=== PATIENT | male | born 1945 | race Caucasian/White ===

== ENCOUNTER 2020-07-17 08:02 | Outpatient (CLI) | payer OTHER, SELFPAY ==
[2020-07-17 08:38] VITALS: BMI 27.4
--- NOTE | 2020-07-17 09:27 | NMCV_ITS ---
NM onesimo perf SPECT r/s* [id number] Greg Joseph Age: 74 Gender: M : 1945 Exam Date: 07/17/2020 09:26 Ordering Phys: Clyde Gardner MD ([email or web address]) Technologist: ROJELIO Hendrickson Exam Location: [facility] Indications: SHORTNESS OF BREATH AND CHEST PAIN STRESS TEST Please [facility] for [facility] IMAGE PROTOCOL Rest/Stress 1 Lexiscan Day Radiopharmaceutical Dose (mCi) Administration Site Administered by Rest: Tc-99m 10.5 IV ROJELIO Hendrickson Sestamibi Stress:Tc-99m 32.3 IV ROJELIO Contreras Sestamibi Rest: 17-Jul-2020 60 Discovery 630 Stress: 17-Jul-2020 30 Discovery 630 0.4mg Lexiscan. Images obtained in supine and prone position. SPECT RESULTS Technical Quality: Excellent Raw Data Analysis: Normal Image Corrections: No attenuation or motion correction applied Summed Stress Score: 0 Summed Rest Score: 3 Summed Difference Score: 0 PERFUSION FINDINGS Small area of slightly decreased tracer uptake in the basal ,mid and apical inferior region with no significant reversibility. FUNCTIONAL RESULTS (calculated via Gated SPECT) Stress Image LV EF (%): 74 Stress EDV (mL):101 TID: 1.19 Stress ESV (mL):26 FUNCTIONAL FINDINGS: Segmental wall motion analysis revealing no gross wall motion abnormalities. LV ejection fraction was around 34%. IMPRESSIONS 1. Myocardial perfusion imaging revealing small area of persistent decreased tracer up take in the mid and apical inferior wall region, suggestive of myocardial scarring versus attrition artifact. 2. Normal LV ejection fraction 74%. 3. LV wall motion analysis revealing no gross wall motion normalities. 4. Normal LV volume. No significant coronary ischemia, based on the above findings Dr Clyde Gardner MD [facility] (Electronically Signed) Final Date: 17 July 2020 18:53 S
--- NOTE | 2020-07-17 09:27 | ECG_ITS ---
[facility] Test Date: 2020-07-17 Pat Name: Greg Joseph Department: Room: Gender: Male Drosser: Lisa Damon : 1945 Requested By: Clyde Gardner Order Number: [id number] Reading MD: Clyde Gardner M.D. Interpretive Statements NAME OF STUDY: LEXISCAN SESTAMIBI STRESS TEST INDICATION: Chest Pain, PROCEDURE: At the baseline, the EKG revealed normal sinus rhythm with some nonspecific ST changes. The baseline blood pressure was 139/85 mm Hg with a heart rate of 75 beats/min. Lexiscan was infused over a period of 20 seconds. A total of 0.4 milligrams of Lexiscan was infused. The stress phase was continued for a total of 5 minutes. Heart rate at the end of the stress phase was 86 with a blood pressure 133/74. The EKG at the peak infusion revealed no significant changes. Sestamibi was injected 20 seconds after the Lexiscan infusion. Blood pressure at the end of the recovery phase was 136/81 with a heart rate of 87 per minute. CONCLUSION: 1. No significant EKG changes with the LexiScan infusion 2. No LexiScan induced chest pain or cardiac arrhythmia 3. Normal blood pressure and heart rate response 4. Sestamibi/sestamibi perfusion scan pending; see separate report. Electronically Signed On 07-18-2020 9:07:51 CDT by Clyde Gardner M.D. [id number]
[2020-07-17 10:05] VITALS: BP 133/93; PULSE 93
[2020-07-17] MEDS: regadenoson 0.4 Mg/5 ml Syringe IVP (10:05)
== END 2020-07-17 08:03 | disposition home or self-care (01) ==
LOC: CDL 08:04
PROVIDERS: PCP Family Medicine; Visit Provider Internal Medicine Cardiovascular Disease
DX: R07.9 Chest pain, unspecified (principal); R06.02 Shortness of breath
CPT/HCPCS: 78452; 93017; A9500; J2785

== ENCOUNTER → 2020-08-09 09:25 | Outpatient (BNVA) | payer MEDICARE, SELFPAY | PROVIDERS: PCP Emergency Medicine Emergency Medical Services; Visit Provider Urology | DX: R31.0 Gross hematuria (principal); N36.8 Other specified disorders of urethra; Z87.891 Personal history of nicotine dependence; Z79.02 Long term (current) use of antithrombotics/antiplatelets | CPT/HCPCS: 81003 ==

== ENCOUNTER 2021-02-27 10:55 | Emergency (ER) | payer OTHER, MEDICARE, SELFPAY ==
--- NOTE | 2021-02-27 11:21 | ECG_ITS ---
[facility] Test Date: 2021-02-27 Pat Name: Greg Joseph Department: Room: Gender: Male Client Finance Analyst: : 1945 Requested By: Duke Trujillo Order Number: [id number] Cristina MD: Corrina Dow M.D. Measurements Intervals [place] Rate: 98 P: 25 NJ: 145 QRS: 18 QRSD: 87 T: -8 QT: 323 QTc: 412 Interpretive Statements SINUS RHYTHM WITH SINUS ARRHYTHMIA NONSPECIFIC T-WAVE ABNORMALITY Compared to ECG 07/09/2017 14:59:49 T-wave abnormality now present Electronically Signed On 02-28-2021 16:13:42 GRADUATE TEACHER EDUCATION by Corrina Dow M.D. [id number]
--- NOTE | 2021-02-27 11:23 | XR_ITS ---
WS: [id number] Exam: XR chest 1V portable [id number] Date/Time of Exam: 02/27/2021 11:23 AM Reason For Exam: chest pain/dyspnea Comparison 07/09/2017. Findings: The lungs are clear and fully expanded. Costophrenic angles are sharp. No infiltrates. Bronchovascula r relief appears normal. Cardiac silhouette is unremarkable. Bony elements are intact. XR/XR chest 1V portable [id number] IMPRESSION: Unremarkable chest radiograph.
[2021-02-27 11:57] VITALS: BP 122/73; PULSE 101; RESP 16; TEMP 36.9; O2SAT 98
[2021-02-27 11:57] LABS: Basophils % 0.4 %; Eosinophils % 0.1 %; Hemoglobin 15.4 g/dL (11.7-16.6); Lymphocytes # 0.6 10^3/uL (0.8-4.8); Lymphocytes % 5.8 %; Mean Corpuscular Hemoglobin 31.5 pg (28.0-34.0); Mean Platelet Volume 9.5 fL (7.4-10.4); Monocytes % 9.1 %; Neutrophils # 9.07 10^3/uL (1.8-7.7); Neutrophils % 84.3 %; Nucleated Red Blood Cells % 0 %; Platelet Count 225 10^3/cmm (130-400); Red Blood Count 4.89 10^6/uL (4.1-5.3); Red Cell Distribution Width 12.9 % (12.1-15.1); White Blood Count 10.8 10^3/uL (4.0-10.0)
--- NOTE | 2021-02-27 12:08 | PC.PHAR ---
pt states he takes care of his medications-pt states he stop taking aspirin a few months ago-notes are made in the pharmacy comments
[2021-02-27 12:30] LABS: Alanine Aminotransferase 21 U/L (0-41); Albumin Level 4.9 g/dL (3.5-5.2); Alkaline Phosphatase 62 IU/L (40-130); Aspartate Amino Transferase 26 U/L (0-40); Blood Urea Nitrogen 26 mg/dL (8-23); Calcium 8.5 mg/dL (8.5-10.5); Carbon Dioxide 22 mmol/L (22-29); Chloride 97 mmol/L (98-107); Creatine Phosphokinase 211 U/L (39-308); Globulin 2.5 g/dL (1.3-4.6); Glucose 101 mg/dL (65-115); NT Pro B Type Natriuretic Pept 20 pg/mL (0-125); Osmolality Calculated 289 mOsm/kg (285-295); Sodium 137 mmol/L (136-145); Total Bilirubin 0.5 mg/dL (0.15-1.2); Total Protein 7.4 g/dL (6.6-8.7); Troponin(5th) Baseline 8 ng/L (0-15)
[2021-02-27 12:37] LABS: Anion Gap 21.9 (5-19); Potassium 3.9 mmol/L (3.5-5.1)
--- NOTE | 2021-02-27 12:44 | ED_ITS ---
HPI - Chest Pain General: Chief Complaint: Chest Pain Stated Complaint: sent by PCP: labs, x-rays Time Seen by Provider: 02/27/21 11:23 History of Present Illness: HPI narrative: 75-year-old male presents emergency room complaining of chest pain. He was seen in Dr. Gardner's office morning complaining of generalized weakness intermittent chest pain for the last several days he denies any cough no fever sweats or chills. He has had a history of coronary disease previously had intervention with stenting he states it feels similar to when he had his heart attack previously. Is not had any diarrhea no anosmia. This time presentation his chest pain has resolved. MD complaint: chest heaviness and chest discomfort Pertinent past history: coronary artery disease Onset (ago): day(s) (4) Timing of current episode: episodic Onset: during rest Pain location: left chest Pain radiation: none Severity: mild Quality: aching and heaviness Relieving factors: nothing Exacerbating factors: nothing Associated symptoms: Deny abdominal pain, diaphoresis, dyspnea, fever(s), leg edema, nausea, palpitations, sense of impending doom, syncope or vomiting Treatment prior to arrival: none Review of Systems Const: Denies: fever(s) or diaphoresis ENMT: Denies: throat pain, ear or mastoid pain, nasal discharge or nasal congestion Card: Denies: palpitations or syncope Resp: Denies: dyspnea GI: Denies: abdominal pain, nausea or vomiting : Denies: flank pain, dysuria, urinary frequency or urinary urgency Skin/Breast: Denies: rash or pruritus PFSH ED PFSH: Medical History Atherosclerotic heart disease of [place] coronary artery with other forms of angina pectoris Atypical chest pain Benign essential hypertension with target blood pressure below 140/90 History of cellulitis History of elevated PSA History of hypertension History of marijuana use History of post traumatic stress disorder History of tachycardia History of tobacco use Hx of atherosclerotic cardiovascular disease Hx of chronic arthritis Hx of gastroesophageal reflux (GERD) Hx of myocardial infarction Hx of spinal stenosis Hypercholesteremia Urethral bleeding Surgical History History of PTCA Hx of appendectomy Hx of bone marrow transplant Hx of coronary angioplasty Hx of hand surgery Hx of tonsillectomy Family History Brother Cancer Mother Dementia Denies family history of Diabetes CAD (coronary artery disease) Clotting disorder Chronic kidney disease (CKD) Suicide Anesthesia complication Bleeding disorder Lung disease Stroke Social History Smoking and tobacco status: former smoker Alcohol intake: former Marital status: / History of recent travel: No Physical Exam Const: COMMON NORMALS: no acute distress GENERAL APPEARANCE: cooperative and comfortable ORIENTATION/CONSCIOUSNESS: Yes awake, Yes oriented to person, Yes oriented to place and Yes oriented to time HENMT: COMMON NORMALS: normocephalic, atraumatic and hearing grossly normal bilaterally HEAD & SCALP: normocephalic and atraumatic Neck/C-Spine: COMMON NORMALS: no JVD Resp: COMMON NORMALS: normal respiratory effort, No retractions, No use of accessory muscles and clear to auscultation bilaterally AUSCULTATION: clear to auscultation bilaterally Cardio: COMMON NORMALS: no JVD, regular rate, regular rhythm and No murmurs present (Cardio) RATE: regular rate RHYTHM: regular rhythm GI: COMMON NORMALS: Soft to palpation and No hepatosplenomegaly present AUSCULTATION: Yes normoactive bowel sounds PALPATION: Yes Soft to palpation, No Tenderness to palpation present (GI), No Guarding due to palpation present (GI) and Yes No hepatosplenomegaly present Extremity: COMMON NORMALS: normal to inspection, capillary refill normal, no clubbing, cyanosis or edema, no calf tenderness and no pedal edema Neuro: SENSORIUM/ORIENTATION: Yes oriented to person, Yes oriented to place and Yes oriented to time Skin: COMMON NORMALS: no rashes or lesions noted GENERAL SKIN EXAM: no rashes or lesions noted Course Vital Signs: Vital signs: Vital Signs Temperature 98.5 F 02/27/21 11:57 Pulse Rate 95 02/27/21 15:22 Respiratory Rate 16 02/27/21 15:22 Blood Pressure 103/68 02/27/21 15:22 Pulse Oximetry 98 02/27/21 15:22 MDM - Chest Pain MDM Narrative: Medical decision making narrative: Reviewed labs and imaging with patient. Patient has chest discomfort that is associated with other myalgias and is only worsened by deep inspiration and cough. Labs imaging and EKG are unremarkable reviewed with the patient he prefer to go home discharge home if he has any worsening problems return immediately to the emergency room. Supportive cares Lab Data: Labs: Lab Results 02/27/21 02/27/21 02/27/21 11:50 11:50 11:50 WBC 10.8 10^3/uL H 10 ^3/uL (4.0-10.0) RBC 4.89 10^6/uL 10^6 /uL (4.1-5.3) Hgb 15.4 g/dL g/dL (11.7-16.6) Hct 44.0 % % (42.0-52.0) MCV 90.0 fl fl (80-94) MCH 31.5 pg pg (28.0-34.0) MCHC 35.0 g/dL g/dL (30.0-36.0) RDW 12.9 % % (12.1-15.1) Plt Count 225 10^3/cmm 10^3 /cmm (130-400) MPV 9.5 fL fL (7.4-10.4) Neut % (Auto) 84.3 % % Lymph % (Auto) 5.8 % % [place] % (Auto) 9.1 % % Eos % (Auto) 0.1 % % Baso % (Auto) 0.4 % % Neut # (Auto) 9.07 10^3/uL H 10 ^3/uL (1.8-7.7) Lymph # (Auto) 0.6 10^3/uL L 10^ 3/uL (0.8-4.8) [place] # (Auto) 1.0 10^3/uL H 10^ 3/uL (0.2-0.9) Eos # (Auto) 0.0 10^3/uL 10^3/ uL (0.0-0.8) Baso # (Auto) 0.0 10^3/uL 10^3/ uL (0.0-0.1) Nucleated RBC % (a uto) 0 % % Nucleated RBCs # 0.0 /100WBC /100W BC Sodium 137 mmol/L mmol/L (136-145) Potassium 3.9 mmol/L mmol/L (3.5-5.1) Chloride 97 mmol/L L mmol/ L (98-107) Carbon Dioxide 22 mmol/L mmol/L (22-29) Anion Gap 21.9 H (5-19) BUN 26 mg/dL H mg/dL (8-23) Creatinine 1.2 mg/dL mg/dL (0.7-1.2) GFR Calculation Not Reportable Glucose 101 mg/dL mg/dL (65-115) Calculated Osmolal ity 289 mOsm/kg mOsm/ kg (285-295) Calcium 8.5 mg/dL mg/dL (8.5-10.5) Total Bilirubin 0.5 mg/dL mg/dL (0.15-1.2) AST 26 U/L U/L (0-40) ALT 21 U/L U/L (0-41) Alkaline Phosphata se 62 IU/L IU/L (40-130) Creatine Kinase 211 U/L U/L (39-308) CK-MB (CK-2) 3.7 ng/mL ng/mL (0-10.4) CK-MB (CK-2) Rel I ndex % % (0.0-5.3) Troponin T Baselin e 8 ng/L ng/L (0-15) Troponin T 120 Min red devil Delta Troponin T NT-Pro-B Natriuret Pep 20 pg/mL pg/mL (0-125) Total Protein 7.4 g/dL g/dL (6.6-8.7) Albumin 4.9 g/dL g/dL (3.5-5.2) Globulin 2.5 g/dL g/dL (1.3-4.6) 02/27/21 13:48 WBC RBC Hgb Hct MCV MCH MCHC RDW Plt Count MPV Neut % (Auto) Lymph % (Auto) [place] % (Auto) Eos % (Auto) Baso % (Auto) Neut # (Auto) Lymph # (Auto) [place] # (Auto) Eos # (Auto) Baso # (Auto) Nucleated RBC % (a uto) Nucleated RBCs # Sodium Potassium Chloride Carbon Dioxide Anion Gap BUN Creatinine GFR Calculation Glucose Calculated Osmolal ity Calcium Total Bilirubin AST ALT Alkaline Phosphata se Creatine Kinase CK-MB (CK-2) CK-MB (CK-2) Rel I ndex Troponin T Baselin e Troponin T 120 Min red devil 8.86 ng/L ng/L (0-15) Delta Troponin T 0.86 ABS# ABS# (0-10) NT-Pro-B Natriuret Pep Total Protein Albumin Globulin Discharge Plan Discharge Patient Disposition: Home Clinical Impression: Viral URI, Atypical chest pain, Atherosclerotic heart disease of [place] coronary artery with other forms of angina pectoris Condition: Stable Prescriptions: No Action cholecalciferol (vitamin D3) 25 mcg (1,000 unit) capsule 25 mcg PO BEDTIME RF: 0 furosemide [Lasix] 40 mg tablet 40 mg PO QAM RF: 0 pantoprazole 40 mg tablet,delayed release (DR/EC) 40 mg PO QAM RF: 0 potassium chloride 20 mEq tablet extended release 20 meq PO QAM RF: 0 prednisone 10 mg Tablet See Rx Instructions .ROUTE .COMPLEX RF: 0 metoprolol tartrate 50 mg Tablet 25 mg PO QAM RF: 0 lidocaine 5 % Ointment 1 applic topical QID PRN (Reason: Pain) RF: 0 biotin 5,000 mcg Tablet,Disintegrating 5,000 mcg PO BEDTIME RF: 0 Plavix 75 mg tablet 75 mg PO QAM RF: 0 lisinopril 5 mg tablet 5 mg PO BEDTIME RF: 0 Discharge Orders: Discharge ED (Routine); Ordered 02/27/21 Ordered By: Duke Carrillo Referrals: Heron Haider DO [Primary Care Provider] - Discharge Diet: Usual diet Discharge Activity: Resume usual activity Patient Instructions: Opioid Safety Coding Level of Care Code ED Lighting Specialist for Liliyag Fwd Exam Comprehensive
[2021-02-27] MEDS: aspirin 81 mg Chew Tablet 324 MG PO (12:45)
[2021-02-27 13:10] LABS: CKMB 3.7 ng/mL (0-10.4)
--- NOTE | 2021-02-27 13:23 | ECG_ITS ---
[facility] Test Date: 2021-02-27 Pat Name: Greg Joseph Department: Room: Gender: Male Crutcher Helper: : 1945 Requested By: Duke Trujillo Order Number: [id number] Cristina MD: Corrina Dow M.D. Measurements Intervals [place] Rate: 101 P: 26 OK: 155 QRS: 24 QRSD: 86 T: 52 QT: 327 QTc: 425 Interpretive Statements SINUS TACHYCARDIA NONSPECIFIC T-WAVE ABNORMALITY Compared to ECG 07/09/2017 14:59:49 T-wave abnormality now present Sinus rhythm no longer present Electronically Signed On 02-28-2021 16:17:36 SENIOR SUPPORT ENGINEER by Corrina Dow M.D. [email or web address]/store/[id number]
[2021-02-27] MEDS: acetaminophen 500 mg Tablet 1000 MG PO (14:31)
[2021-02-27 14:41] LABS: Troponin 5 2HR 8.86 ng/L (0-15); Troponin 5 2HR Delta 0.86 ABS# (0-10)
[2021-02-27 15:22] VITALS: BP 103/68; PULSE 95; RESP 16; O2SAT 98
== END 2021-02-27 15:34 | disposition home or self-care (01) ==
PROVIDERS: Emergency Provider Family Medicine; PCP Emergency Medicine Emergency Medical Services
DX: R07.89 Other chest pain (principal); J06.9 Acute upper respiratory infection, unspecified; I25.118 Atherosclerotic heart disease of native coronary artery with other forms of angina pectoris; Z79.02 Long term (current) use of antithrombotics/antiplatelets; I10 Essential (primary) hypertension; I25.2 Old myocardial infarction; Z94.81 Bone marrow transplant status; Z98.61 Coronary angioplasty status; Z87.891 Personal history of nicotine dependence
CPT/HCPCS: 36415; 71045; 80053; 82550; 82553; 83880; 84484; 85025; 93005; 99283

== ENCOUNTER → 2022-02-17 09:59 | Outpatient (BNVA) | payer OTHER, SELFPAY | PROVIDERS: PCP Emergency Medicine Emergency Medical Services; Visit Provider Internal Medicine Cardiovascular Disease | DX: I25.118 Atherosclerotic heart disease of native coronary artery with other forms of angina pectoris (principal); E78.00 Pure hypercholesterolemia, unspecified; I10 Essential (primary) hypertension; Z87.891 Personal history of nicotine dependence; I25.2 Old myocardial infarction | CPT/HCPCS: 99214 ==

== ENCOUNTER → 2023-03-03 11:15 | Outpatient (BNVA) | payer OTHER, SELFPAY | PROVIDERS: PCP Emergency Medicine Emergency Medical Services; Visit Provider Specialist | DX: M75.82 Other shoulder lesions, left shoulder | CPT/HCPCS: 73030; 99204 ==

== ENCOUNTER 2023-03-22 13:19 | Outpatient (CLI) | payer OTHER, SELFPAY ==
--- NOTE | 2023-03-22 13:45 | MR_ITS ---
WS: [id number] MRI LEFT SHOULDER HISTORY: shoulder injury COMPARISON: 03/03/2023 TECHNIQUE: Multiplanar sequences of the shoulder joint are submitted. Moderate AC joint arthritis. AC joint is narrowed. Small osteophytes encroach upon the supraspinatus muscle and tendon. 4 mm osteophyte along the distal undersurface of the acromion with impingement. Sm all amount of fluid in the subacromial and subdeltoid bursa. No os acromion. Normal position of the b iceps tendon. Suspect there is a very short focal split tear in the biceps tendon near the bicipital groove. Moderate glenohumeral joint space narrowing. Osteophytic ridging around the humeral head. There is a small joint effusion. Humeral head osteophyte displacing the subscapularis tendon. No rotator cuff mu scle atrophy or edema. No rotator cuff tear is identified. Degenerative changes in the glenoid. Intra substance degeneration. Increased signal in the anterior superior labrum. IMPRESSION: 1. Moderate AC joint arthritis with encroachment upon the supraspinatus muscle and tendon. 2. Moderate subacromial impingement. 3. No rotator cuff tear identified. 4. Mild tendinopathy in the distal supraspinatus. 5. Very tiny focal split tear biceps tendon at the bicipital groove. 6. Osteophytic ridging around the humeral head with narrowing of the glenohumeral joint. 7. Anterior superior labral tears.
== END 2023-03-22 13:20 | disposition home or self-care (01) ==
LOC: RAD 13:20
PROVIDERS: PCP Emergency Medicine Emergency Medical Services; Visit Provider Specialist
DX: M19.012 Primary osteoarthritis, left shoulder (principal); M75.42 Impingement syndrome of left shoulder; M25.712 Osteophyte, left shoulder; S43.432A Superior glenoid labrum lesion of left shoulder, initial encounter; X58.XXXA Exposure to other specified factors, initial encounter; M75.82 Other shoulder lesions, left shoulder
CPT/HCPCS: 73221

== ENCOUNTER 2023-09-16 21:26 | Emergency (ER) | payer OTHER, MEDICARE, SELFPAY ==
[2023-09-16 21:31] VITALS: BP 133/76; PULSE 85; RESP 16; TEMP 36.6; O2SAT 99; BMI 27.4
--- NOTE | 2023-09-16 22:37 | ED_ITS ---
HPI - Wound/Laceration 2 General: Chief Complaint: Wound/Laceration Stated Complaint: Cut left leg with chainsaw Time Seen by Provider: 09/16/23 22:21 Source: patient and family Mode of arrival: wheelchair Limitations: no limitations History of Present Illness: Patient is a 78-year-old male who presents to the ED today for evaluation of a laceration to his left lower extremity that he sustained just prior to arrival after accidentally cutting it with a chainsaw. Last tetanus is unknown. Onset (ago): hour(s) Extremity Location: Left: lower leg Place: home Patient tetanus UTD: No Context: accidental Associated symptoms: Reports no associated symptoms Treatments prior to arrival: bandage Review of Systems 2 Musc: Reports: extremity pain; Denies: extremity swelling, joint pain or joint swelling Skin/Breast: Reports: other (laceration L lower leg) Neuro: Denies: numbness in extremities, weakness in extremities or sensory changes PFSH ED 2 PFSH: Medical History History of tobacco use Urethral bleeding Benign essential hypertension with target blood pressure below 140/90 Atherosclerotic heart disease of [place] coronary artery with other forms of angina pectoris Atypical chest pain Hypercholesteremia Hx of chronic arthritis History of elevated PSA Hx of atherosclerotic cardiovascular disease History of marijuana use History of hypertension Hx of gastroesophageal reflux (GERD) Hx of myocardial infarction History of cellulitis Hx of spinal stenosis History of post traumatic stress disorder History of tachycardia Surgical History History of PTCA Hx of appendectomy Hx of tonsillectomy Hx of coronary angioplasty Hx of bone marrow transplant Hx of hand surgery Family History Brother Cancer Mother Dementia Denies family history of Diabetes CAD (coronary artery disease) Clotting disorder Chronic kidney disease (CKD) Suicide Anesthesia complication Bleeding disorder Lung disease Stroke Social History Smoking and tobacco/nicotine status: former use of tobacco/nicotine Alcohol intake: former Substance/Drug Use: current Substance/Drug use frequency: few times a week Marital status: / Physical Exam 2 Const: COMMON NORMALS: no acute distress, patient oriented x3, no limitations, healthy appearing, alert and well nourished Extremity: COMMON NORMALS: full ROM, capillary refill normal, no joint enlargement, no clubbing, cyanosis or edema, no calf tenderness and no pedal edema GENERAL: Yes normal exam except as noted LEFT LOWER EXTREMITY: Yes lower leg Left lower leg: Yes inspection (muscle laceration) and Yes neurovascular exam (normal) EXTREMITY IMAGE (FRONT): 1. large 7cm laceration present to L lower extremity just lateral to tibia; there appears to be laceration through muscle fascia and into muscle belly; no obvious tendon involvement; patient seems to have normal flexion/extension of ankle joint as well as digits; NV intact Neuro: COMMON NORMALS: patient oriented x3, moves all extremities, no focal motor deficits and no sensory deficits noted SENSORIUM/ORIENTATION: Yes alert Procedures Laceration Laceration 1: Site: lower extremity Side (If applicable): left Size (cm): 7.0 Description: irregular Depth: involves muscle layer Local Anesthetic: lidocaine 2% Amount of anesthesia used (mL): 6.0 Pre-repair: wound explored Skin layer closed with: nylon Size (cm): 4-0 Number of sutures: 9 Technique: simple, interrupted Muscle layer closed with: vicryl Size: 4-0 Number of sutures: 6 Technique: simple, interrupted Course 2 Vital Signs: Vital signs: Vital Signs Temperature 98 F 09/16/23 21:31 Pulse Rate 85 09/16/23 21:31 Respiratory Rate 16 09/16/23 21:31 Blood Pressure 133/76 09/16/23 21:31 Pulse Oximetry 99 09/16/23 21:31 MDM - Wound/Laceration Medical Decision Making Patient here with a chainsaw laceration to his left lower extremity. There is muscle involvement although it does not appear to be completely severed-suspect this a portion of his tibialis anterior. I do not see any obvious tendon lacerations. I do not visualize any bony involvement on patient's XR. He was given IM Ancef. He was offered a tetanus but he declines. Wound was copiously irrigated and repaired as documented. Patient will be strict nonweightbearing to avoid wound dehiscence. He will follow-up with orthopedics. He will be placed on pain medications and antibiotics. Return to ED precautions given. Differential Diagnosis Likely laceration Medical Records I reviewed the patient's medical records. XR interpretation done by ED provider, pending radiology final review Discharge Plan Discharge Patient Disposition: Home Clinical Impression: Laceration of muscle(s) and tendon(s) of anterior muscle group at lower leg level, left leg, initial encounter Condition: Stable Prescriptions: New hydrocodone-acetaminophen 5-325 mg tablet 1 tab PO Q6H PRN (Reason: pain) Qty: 14 0RF cephalexin 500 mg capsule 500 mg PO Q6H 7 Days Qty: 28 0RF No Action cholecalciferol (vitamin D3) 25 mcg (1,000 unit) capsule 25 mcg PO BEDTIME furosemide [Lasix] 40 mg tablet 40 mg PO QAM pantoprazole 40 mg tablet,delayed release (DR/EC) 40 mg PO QAM potassium chloride 20 mEq tablet extended release 20 meq PO QAM meloxicam 15 mg tablet 15 mg PO DAILY Qty: 30 0RF Rx Instructions: Take one tablet once daily prednisone 10 mg Tablet See Rx Instructions .ROUTE .COMPLEX Rx Instructions: as directed as needed metoprolol tartrate 50 mg Tablet 25 mg PO QAM lidocaine 5 % Ointment 1 applic topical QID PRN (Reason: Pain) biotin 5,000 mcg Tablet,Disintegrating 5,000 mcg PO BEDTIME Plavix 75 mg tablet 75 mg PO QAM lisinopril 5 mg tablet 5 mg PO BEDTIME Discharge Orders: Discharge ED (Routine); Ordered 09/17/23 Ordered By: Geena Chua Referrals: Heron Haider DO [Primary Care Provider] - Patient Instructions: Care For Your Stitches (ED), Laceration (DC), Opioid Safety, Pain Management Activity Restrictions/Additional Instructions: As we discussed I would like you to use your crutches over the next week to avoid weightbearing on your extremity as you have lacerated a muscle to your anterior lower leg. This will hopefully prevent any wound dehiscence to your deep sutures. As we discussed I would like you to ice and elevate the extremity is much as possible. Monitor for signs of infection such as redness, swelling, purulent or odorous drainage, warmth, fevers, streaking up your leg, or any other concerns you may have. Please seek medical reevaluation if these occur. As we discussed case management should reach out to you shortly to help set you up with your follow-up orthopedic appointment. You have antibiotics and pain medications called into [facility] pharmacy in [place]. Please pick them up tomorrow when they open. Coding Level of Care Code ED Signals Intelligence Analyst for Shayan Turner
--- NOTE | 2023-09-16 23:02 | XRR_ITS ---
PROCEDURE INFORMATION: Exam: XR Left Tibia and Fibula Exam date and time: 09/16/2023 11:13 PM Age: 78 years old Clinical indication: Injury or trauma; Other: Chainsaw accident; Laceration; Lower leg; Left; Foreign body involvement not specified; Additional info: Laceration/trauma, chainsaw cut open lt lower leg TECHNIQUE: Imaging protocol: Radiologic exam of the left tibia and fibula. Views: 2 views. COMPARISON: No relevant prior studies available. FINDINGS: Bones/joints: Normal. Soft tissues: Normal. Other findings: Prominent laceration over the anterolateral calf. XR/XR tibia fibula LT 2V [id number] IMPRESSION: Prominent laceration over the anterolateral calf.
[2023-09-16] MEDS: morphine 4 mg/mL SDV 1 mL IM (23:52)
[2023-09-17] MEDS: HYDROcodone-acetaminophen 5-325 mg Tablet 2 TAB PO (00:49)
[2023-09-17] MEDS: ceFAZolin 1,000 MG in water for injection-sterile 2.5 ML 2.5 MG IM (00:49)
[2023-09-17 01:02] VITALS: BP 128/78; PULSE 81; RESP 16; TEMP 36.6; O2SAT 100
--- NOTE | 2023-09-17 04:56 | DCPLANNER ---
Message sent to Ortho for a follow up : Anterior lower leg muscle laceration.
== END 2023-09-17 01:05 | disposition home or self-care (01) ==
PROVIDERS: Emergency Provider Physician Assistant; PCP Emergency Medicine Emergency Medical Services
DX: S86.222A Laceration of muscle(s) and tendon(s) of anterior muscle group at lower leg level, left leg, initial encounter (principal); W29.3XXA Contact with powered garden and outdoor hand tools and machinery, initial encounter; Z79.02 Long term (current) use of antithrombotics/antiplatelets; Z87.891 Personal history of nicotine dependence; I10 Essential (primary) hypertension; I25.10 Atherosclerotic heart disease of native coronary artery without angina pectoris; I25.2 Old myocardial infarction; Z98.61 Coronary angioplasty status; Z94.81 Bone marrow transplant status
CPT/HCPCS: 12032; 73590; 96372; 99284; E0114; J0690; J2270

== ENCOUNTER → 2023-09-30 13:16 | Outpatient (BNVA) | payer OTHER, SELFPAY | PROVIDERS: PCP Emergency Medicine Emergency Medical Services; Referring Provider Physician Assistant; Visit Provider Orthopaedic Surgery | DX: S86.222A Laceration of muscle(s) and tendon(s) of anterior muscle group at lower leg level, left leg, initial encounter (principal); W29.3XXA Contact with powered garden and outdoor hand tools and machinery, initial encounter; Y92.009 Unspecified place in unspecified non-institutional (private) residence as the place of occurrence of the external cause | CPT/HCPCS: 99203 ==

== ENCOUNTER 2024-03-02 09:28 | Outpatient (CLI) | payer OTHER, SELFPAY ==
--- NOTE | 2024-03-02 09:32 | MR_ITS ---
WS: [id number] MRI BRAIN WITH HIGH-RESOLUTION IMAGING THROUGH THE INTERNAL AUDITORY CANALS WITHOUT AND WITH CONTRAST HISTORY: SENSORINEURAL HEARING LOSS,BILATERAL/L EAR TINNITUS COMPARISON: None available. TECHNIQUE: Multiplanar, multisequence imaging is performed through the brain. Additional 3 mm imaging performed in multiple planes through the internal auditory canal. Postcontrast imaging with 16 ml's of MultiHance. No acute intracranial hemorrhage, midline shift, edema or mass effect. No acute infarct. There are a few scattered FLAIR and T2 hyperintensities in the subcortical white ma tter. Mild volume loss. Additional focal areas of ischemia noted in the [place] bilaterally. No large te rritory infarct. No hemorrhage. Normal hippocampal formations. Ventricles and extra-axial spaces are normal. No inferior displacement of cerebellar tonsils. Clivus and pituitary gland are normal. Internal and external auditory canals: Unremarkable. Cranial nerves VII and VIII complexes: Unremarkable. No enhancement or mass. Cerebellopontine angles: Normal. Paranasal sinuses: Marked mucoperiosteal thickening in the LEFT sphenoid sinus. Small mucous retentio n cyst in the floor the LEFT maxillary sinus. No air-fluid levels. Mastoid air cells: Normal. Calvarium and scalp: Normal. Visualized [facility] and dural venous sinuses demonstrate no abnormality. MR/MR iac's wo/w con* [id number] IMPRESSION: 1. Normal internal auditory canals and cerebellopontine angles. No mass is wilian ntified. 2. Mild cerebral volume loss and small vessel disease. Mild ischemic disease i n the [place]. No acute infarct. 3. No enhancing masses. 4. Normal hippocampal formations.
[2024-03-02] MEDS: gadobenate dimeglumine 20 mL vial IV (09:51)
== END 2024-03-02 09:29 | disposition home or self-care (01) ==
LOC: RAD 09:28
PROVIDERS: PCP Emergency Medicine Emergency Medical Services; Visit Provider Otolaryngology
DX: H90.3 Sensorineural hearing loss, bilateral (principal); H93.12 Tinnitus, left ear
CPT/HCPCS: 70553

== ENCOUNTER 2024-03-16 14:20 | Outpatient (CLI) | payer OTHER, SELFPAY ==
--- NOTE | 2024-03-16 14:25 | US_ITS ---
WS: [id number] RENAL ULTRASOUND HISTORY: HEMATURIA COMPARISON: None available. TECHNIQUE: 2-D and color Doppler imaging of the kidney submitted. Right kidney: 10.0 cm x 6.0 cm x 6.0 cm. Cortex: 1.2 cm Normal echogenicity with no hydronephrosis or mass. Left kidney: 9.4 cm x 4.6 cm x 4.7 cm. Cortex: 1.2 cm Normal echogenicity with no hydronephrosis or mass. Aorta: Normal. Urinary Bladder: Normal distention. Prostate gland is enlarged and heterogeneous encroaching into the bladder. US/US renal BI* [id number] IMPRESSION: Normal renal ultrasound.
== END 2024-03-16 14:21 | disposition home or self-care (01) ==
PROVIDERS: Visit Provider Family Medicine
DX: R31.9 Hematuria, unspecified (principal)
CPT/HCPCS: 76770

== ENCOUNTER 2024-07-23 11:40 | Inpatient (IN) | payer OTHER, SELFPAY ==
[2024-07-23] VITALS (7 sets, daily range): BP systolic 102–133; BP diastolic 64–77; PULSE 68–83; RESP 14–18; TEMP 36.7–36.8; O2SAT 66–98; BMI 27.6
--- NOTE | 2024-07-23 11:43 | ECG_ITS ---
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 Measurements Intervals [place] Rate: 69 P: 72 PA: 160 QRS: 71 QRSD: 90 T: 55 QT: 383 QTc: 412 Interpretive Statements SINUS RHYTHM Compared to ECG 02/27/2021 14:22:46 Sinus tachycardia no longer present T-wave abnormality no longer present Electronically Signed On 07-23-2024 21:13:17 CDT by Clyde Gardner M.D. [email or web address]
--- NOTE | 2024-07-23 11:48 | XRR_ITS ---
PROCEDURE INFORMATION: Exam: XR Chest Exam date and time: 07/23/2024 11:59 AM Age: 78 years old Clinical indication: Chest pressure; Chest pain TECHNIQUE: Imaging protocol: Radiologic exam of the chest. Views: 1 view. COMPARISON: CR XR chest 1V portable [id number] 02/27/2021 11:29 AM FINDINGS: Lungs: The pulmonary vessels are within normal limits. The lungs are clear. Pleural spaces: No pneumothorax. Heart/Mediastinum: The cardiomediastinal silhouette is within normal limits. Bones/joints: Osseous structure is unremarkable. XR/XR chest 1V portable [id number] IMPRESSION: No acute pulmonary finding.
[2024-07-23 12:00] LABS: Basophils # 0.1 10^3/uL (0.0-0.1); Basophils % 0.8 %; Eosinophils # 0.3 10^3/uL (0.0-0.8); Eosinophils % 4.1 %; Hematocrit 42.6 % (37-53); Lymphocytes # 1.3 10^3/uL (0.8-4.8); Lymphocytes % 16.5 %; Mean Corpuscular HGB Conc 33.8 g/dL (30-55); Mean Corpuscular Hemoglobin 30.6 pg (27-33); Mean Corpuscular Volume 90.4 fl (82-101); Mean Platelet Volume 9.2 fL (7.4-10.4); Monocytes # 0.6 10^3/uL (0.2-0.9); Monocytes % 7.1 %; Neutrophils # 5.54 10^3/uL (1.8-7.7); Neutrophils % 71.1 %; Nucleated Red Blood Cells % 0 %; Platelet Count 241 10^3/cmm (157-399); Red Blood Count 4.71 10^6/uL (3.85-5.65); Red Cell Distribution Width 12.7 % (12.1-15.1); White Blood Count 7.78 10^3/uL (3.29-11.43)
[2024-07-23 12:17] LABS: Troponin(5th) Baseline 66 ng/L (0-15)
[2024-07-23 12:21] LABS: Alanine Aminotransferase 10 U/L (0-41); Albumin Level 4.2 g/dL (3.5-5.2); Alkaline Phosphatase 67 U/L (40-130); Anion Gap 15.7 (5-19); Aspartate Amino Transferase 14 U/L (0-40); Blood Urea Nitrogen 15 mg/dL (8-23); Calcium 8.6 mg/dL (8.5-10.5); Carbon Dioxide 23 mmol/L (22-29); Chloride 104 mmol/L (98-107); Creatinine Clr Calc Pharmacy 60.6424; Globulin 2.2 g/dL (1.3-4.6); Glucose 137 mg/dL (65-115); Lipase 50 U/L (13-60); Osmolality Calculated 291 mOsm/kg (285-295); Potassium 3.7 mmol/L (3.5-5.1); Sodium 139 mmol/L (136-145); Total Bilirubin 0.5 mg/dL (0.15-1.2); Total Protein 6.4 g/dL (6.6-8.7)
--- NOTE | 2024-07-23 12:33 | ED_ITS ---
HPI - Chest Pain 2 General: Chief Complaint: Chest Pain Stated Complaint: CP Time Seen by Provider: 07/23/24 11:51 History of Present Illness: 78-year-old man with a history of tobacc o use in remission, marijuana use current, coronary artery disease status post stents, hyperlipidemia, hypertension, and PTSD who presents to the emergency room with chest pain. He says that central to the right. Has been exertional. He also is been having shortness of breath with exertion. No lower extremity edema. No calf pain. No abdominal pain. No nausea or vomiting. No increased cough. No wheezing. Related Data Home Medications ?Medication ?Instructions ?Recorded ?Confirmed cholecalciferol (vitamin D3) 25 25 mcg PO BEDTIME 07/3107/23/24 mcg (1,000 unit) capsule furosemide 40 mg tablet (Lasix) 40 mg PO QAM 04/15/20 07/23/24 pantoprazole 40 mg tablet,delayed 40 mg PO QAM 1 07/23/24 release potassium chloride 20 mEq 20 meq PO QAM 04/15/2007/23 tablet,extended release biotin 5,000 mcg disintegrating 5,000 mcg PO BEDTIME 1 04/29/20 07/23/24 tablet clopidogrel 75 mg tablet (Plavix) 75 mg PO QAM 1 07/23/24 lidocaine 5 % topical ointment 1 applic topical QID NM N Pain 02/27/21 07/23/24 lisinopril 5 mg tablet 5 mg PO BEDTIME 02/27/21 metoprolol tartrate 50 mg tablet 25 mg PO QAM 02/27/21 07/23/24 Previous Rx's ?Medication ?Instructions ?Recorded meloxicam 15 mg tablet 15 mg PO DAILY #30 tabs 02/11 06/04 hydrocodone 5 mg-acetaminophen 325 1 tab PO Q6H PRN pa in #14 tabs 09/16/ mg tablet Allergies Allergy/AdvReac Type Severity Reaction Status Date / Time meperidine (From Demerol) Allergy unknown Verified 03/03/23 13:18 Penicillins Allergy unknown Verified 03/03/23 13:18 simvastatin Allergy unknown Verified 03/03/23 13:18 Review of Systems 2 Narrative: Constitutional symptoms: Negative except as documented in HPI. Skin symptoms: Negative except as documented in HPI. Eye symptoms: Negative except as documented in HPI. ENMT symptoms: Negative except as documented in HPI. Respiratory symptoms: Negative except as documented in HPI. Cardiovascular symptoms: Negative except as documented in HPI. Gastrointestinal symptoms: Negative except as documented in HPI. Genitourinary symptoms: Negative except as documented in HPI. Musculoskeletal symptoms: Negative except as documented in HPI. Neurologic symptoms: Negative except as documented in HPI. Psychiatric symptoms: Negative except as documented in HPI. Endocrine symptoms: Negative except as documented in HPI. PFSH ED 2 PFSH: Medical History History of tobacco use Urethral bleeding Benign essential hypertension with target blood pressure below 140/90 Atherosclerotic heart disease of [place] coronary artery with other forms of angina pectoris Atypical chest pain Hypercholesteremia Hx of chronic arthritis History of elevated PSA Hx of atherosclerotic cardiovascular disease History of marijuana use History of hypertension Hx of gastroesophageal reflux (GERD) Hx of myocardial infarction History of cellulitis Hx of spinal stenosis History of post traumatic stress disorder History of tachycardia Surgical History History of PTCA Hx of appendectomy Hx of tonsillectomy Hx of coronary angioplasty Hx of bone marrow transplant Hx of hand surgery Family History Brother Cancer Mother Dementia Denies family history of Diabetes CAD (coronary artery disease) Clotting disorder Chronic kidney disease (CKD) Suicide Anesthesia complication Bleeding disorder Lung disease Stroke Social History Smoking and tobacco/nicotine status: former use of tobacco/nicotine Alcohol intake: former Substance/Drug Use: current Substance/Drug use frequency: few times a week Marital status: / Physical Exam 2 Narrative: EXAM NARRATIVE: General: Alert, no acute distress. Skin: Warm, dry. Head: Normocephalic, atraumatic. Neck: Supple, trachea midline. Eye: Extraocular movements are intact. Ears, nose, mouth and throat: mucosa moist. Cardiovascular: Regular, Normal peripheral perfusion. Respiratory: Lungs are clear to auscultation, respirations are non-labored, breath sounds are equal, Symmetrical chest wall expansion. Gastrointestinal: Soft, Nontender, Non distended Musculoskeletal: Normal ROM, no deformity. Neurological: Alert and oriented, No focal neurological deficit observed. Psychiatric: Cooperative, appropriate mood & affect. Course 2 Vital Signs: Vital signs: Vital Signs Temperature 98.2 F 07/23/24 11:48 Pulse Rate 70 07/23/24 12:00 Respiratory Rate 14 07/23/24 12:00 Blood Pressure 125/76 07/23/24 12:00 Pulse Oximetry 96 07/23/24 12:00 Oxygen Delivery Me thod Room Air 07/23/24 11:48 MDM - Chest Pain Medical Decision Making Differential diagnosis for patient with chest pain includes but is not limited to and based on the above HPI, review of systems and physical exam: Pneumonia. unstable angina. angina. Acute coronary syndrome / AL. Pulmonary embolism. Costochondritis / musculoskeletal. Pleurisy. Pericarditis. Esophageal spasm. Pancreatis. Cholecystitis. Orders placed to evaluate differential diagnosis based on the above differential, HPI and physical exam EKG: Time 1143. Rate 69 normal sinus rhythm, No ST-T changes, no ectopy, normal NM & QRS intervals, This was reviewed and interpreted by myself the ER physician at 1148. Lab Review: Laboratory results were reviewed and interpreted by myself the emergency room physician. No leukocytosis. No anemia. No renal failure. Patient's initial troponin is elevated at 66. Previous was 6. He does not have any renal dysfunction to explain the higher troponin so this is likely secondary to cardiac ischemia. Chest x-ray: No acute process. No infiltrate. No pneumothorax. This was reviewed and interpreted by myself the emergency room physician. I also reviewed the radiology report. HEART Pathway for Early Discharge in Acute Chest Pain from [facility] [email or web address] on 07/23/2024 All calculations should be rechecked by clinician prior to use RESULT SUMMARY: 8 points HEART Pathway Score High risk 12-65% 30-day MACE Cardiology consultation and admission recommended. Further testing indicated. INPUTS: History ?> 2 = Highly suspicious EKG ?> 0 = Normal Age ?> 2 = >=5 Risk factors ?> 2 = >= risk factors or history of atherosclerotic disease Initial troponin ?> 2 = >3x normal limit I reviewed the patient's medical record. history of tobacco use in remission, marijuana use current, coronary artery disease status post stents, hyperlipidemia, hypertension, and PTSD Reexamination: Patient remained stable. No increased work of breathing. No altered mental status. No focal motor deficits. Patient is currently chest pain-free. Consultation: I spoke with Dr. Alvarenga who is on-call for the hospitalist service who agrees to admission. Assessment and plan: Chest pain Unstable angina Coronary artery disease Elevated troponin ?Patient took his Plavix this morning. 324 chewable aspirin in the emergency room here today. -I discussed the patient with the hospitalist on-call who is admitting the patient. - Discussed findings and plan with patient. Answered any questions. - All laboratory values were reviewed and interpreted personally by myself, the ER physician - All imaging was reviewed and interpreted personally by myself, the ER physician. - Evaluation and treatment of this problem were appropriate in the emergency setting Lab Data 07/23/24 11:55 07/23/24 11:55 Radiology Impressions Chest X-Ray 07/23/24 11:48 IMPRESSION: No acute pulmonary finding. Laboratory Results WBC 7.78 10^3/uL (3.29-11.43) 07/23/24 11:55 RBC 4.71 10^6/uL (3.85-5.65) 07/23/24 11:55 Hgb 14.40 g/dL (11.27-16.99) 07/23/24 11:55 Hct 42.6 % (37-53) 07/23/24 11:55 MCV 90.4 fl (82-101) 07/23/24 11:55 MCH 30.6 pg (27-33) 07/23/24 11:55 MCHC 33.8 g/dL (30-55) 07/23/24 11:55 RDW 12.7 % (12.1-15.1) 07/23/24 11:55 Plt Count 241 10^3/cmm (157-399) 07/23/24 11:55 MPV 9.2 fL (7.4-10.4) 07/23/24 11:55 Neut % (Auto) 71.1 % 07/23/24 11:55 Lymph % (Auto) 16.5 % 07/23/24 11:55 [place]corn % (Auto) 7.1 % 07/23/24 11:55 Eos % (Auto) 4.1 % 07/23/24 11:55 Baso % (Auto) 0.8 % 07/23/24 11:55 Neut # (Auto) 5.54 10^3/uL (1.8-7.7) 07/23/24 11:55 Lymph # (Auto) 1.3 10^3/uL (0.8-4.8) 07/23/24 11:55 [place] # (Auto) 0.6 10^3/uL (0.2-0.9) 07/23/24 11:55 Eos # (Auto) 0.3 10^3/uL (0.0-0.8) 07/23/24 11:55 Baso # (Auto) 0.1 10^3/uL (0.0-0.1) 07/23/24 11:55 Nucleated RBC % (auto) 0 % 07/23/24 11:55 Nucleated RBCs # 0.0 /100WBC 07/23/24 11:55 Sodium 139 mmol/L (136-145) 07/23/24 11:55 Potassium 3.7 mmol/L (3.5-5.1) 07/23/24 11:55 Chloride 104 mmol/L (98-107) 07/23/24 11:55 Carbon Dioxide 23 mmol/L (22-29) 07/23/24 11:55 Anion Gap 15.7 (5-19) 07/23/24 11:55 BUN 15 mg/dL (8-23) 07/23/24 11:55 Creatinine 1.0 mg/dL (0.7-1.2) 07/23/24 11:55 GFR Calculation Not Reportable 07/23/24 11:55 Glucose 137 mg/dL (65-115) H 07/23/24 11:55 Calculated Osmolality 291 mOsm/kg (285-295) 07/23/24 11:55 Calcium 8.6 mg/dL (8.5-10.5) 07/23/24 11:55 Total Bilirubin 0.5 mg/dL (0.15-1.2) 07/23/24 11:55 AST 14 U/L (0-40) 07/23/24 11:55 ALT 10 U/L (0-41) 07/23/24 11:55 Alkaline Phosphatase 67 U/L (40-130) 07/23/24 11:55 Troponin T Baseline 66 ng/L (0-15) H 07/23/24 11:55 Total Protein 6.4 g/dL (6.6-8.7) L 07/23/24 11:55 Albumin 4.2 g/dL (3.5-5.2) 07/23/24 11:55 Globulin 2.2 g/dL (1.3-4.6) 07/23/24 11:55 Lipase 50 U/L (13-60) 07/23/24 11:55 All radiology interpretation(s) finalized by discharge Clincial Decision Support The following clinical decision support tools were used to aid in care of the patient HEART Score -> History: Highly Suspicious, EKG: Normal, Age: 65 or more yrs, Risk Factors: >/=3 Risk Factors, Troponin: Baseline Trop >45 ng/L. Resulting HEART Score: 8. Discharge Plan Discharge Patient Disposition: Admitted As Inpatient Clinical Impression: Unstable angina, Coronary artery disease, Elevated troponin Condition: Stable Coding Level of Care Code ED Side Laster Staple for Shayan Turner
--- NOTE | 2024-07-23 12:34 | PM.HP ---
Providers/Chief Complaint Chief Complaint: CP History of Present Illness Greg Joseph is a 78 year old male with past medical history of coronary artery disease status post stents, hyperlipidemia, hypertension, PTSD, former smoker, current marijuana user who presented to the hospital with chest pain that has in the center and to the right of his chest which has been worsening upon exertion. He also reports shortness of breath with exertion. He states pain in the right side of his chest does radiate towards the left and into his neck when he tries to exert himself. Denies any lower extremity edema no pain in his legs. Denies nausea vomiting cough wheezing diarrhea abdominal pain. He states he has seen his doctor at the [place] and he was advised to get a stress test as an outpatient at a later time. He presents today with complaint of chest pain. At this time it is resolved. Not reproducible to palpation. Heart score 8 points. Initial troponin 66. Previously was 6 in the past. Chest x-ray negative for acute pathology. EKG shows normal sinus rhythm. Patient has a history of coronary disease status post PCI in 2016 when he had a myocardial infarction. Dr. Peres with his director compliance at the time. He has not seen him since 2017. He was following up with Dr. Gardner as an outpatient and last saw him in February 2022. He states he has an allergy to simvastatin as it gives him leg cramps. As patient was being seen it was noted on telemetry he had a heart block. I have asked nurse to obtain EKG and print the rhythm strip. Patient states from time to time he will feel his heart skips a beat.. He states is been going on for quite some time now. Medications/Allergies Home Medications ?Medication ?Instructions ?Recorded ?Confirmed ?Last Taken ?Type cholecalciferol (vitamin D3) 25 25 mcg PO BEDTIME 04/15/20 07/23/24 07/23/24 History mcg (1,000 unit) capsule furosemide 40 mg tablet (Lasix) 40 mg PO QAM 04/15/20 07/23/24 07/23/24 History pantoprazole 40 mg tablet,delayed 40 mg PO QAM 04/15/20 07/23/24 07/23/24 History release potassium chloride 20 mEq 20 meq PO QAM 04/15/20 07/23/24 07/23/24 07:00 History tablet,extended release biotin 5,000 mcg disintegrating 5,000 mcg PO BEDTIME 02/27/21 07/23/24 06/10/24 History tablet clopidogrel 75 mg tablet (Plavix) 75 mg PO QAM 02/27/21 07/23/24 07/23/24 History lisinopril 5 mg tablet 5 mg PO BEDTIME 02/27/21 07/23/24 07/23/24 History metoprolol tartrate 50 mg tablet 25 mg PO QAM 02/27/21 07/23/24 07/23/24 History Allergies Allergy/AdvReac Type Severity Reaction Status Date / Time simvastatin Allergy Severe ALGY-Joint Verified 07/23/24 16:09 Pain meperidine (From Demerol) Allergy unknown Verified 03/03/23 13:18 Penicillins Allergy unknown Verified 03/03/23 13:18 PFSH Acute PFSH: Medical History History of tobacco use Urethral bleeding Benign essential hypertension with target blood pressure below 140/90 Atherosclerotic heart disease of [place] coronary artery with other forms of angina pectoris Atypical chest pain Hypercholesteremia Hx of chronic arthritis History of elevated PSA Hx of atherosclerotic cardiovascular disease History of marijuana use History of hypertension Hx of gastroesophageal reflux (GERD) Hx of myocardial infarction History of cellulitis Hx of spinal stenosis History of post traumatic stress disorder History of tachycardia Surgical History History of PTCA Hx of appendectomy Hx of tonsillectomy Hx of coronary angioplasty Hx of bone marrow transplant Hx of hand surgery Family History Brother Cancer Mother Dementia Denies family history of Diabetes CAD (coronary artery disease) Clotting disorder Chronic kidney disease (CKD) Suicide Anesthesia complication Bleeding disorder Lung disease Stroke Social History Smoking and tobacco/nicotine status: former use of tobacco/nicotine Alcohol intake: former Substance/Drug Use: current Substance/Drug use frequency: few times a week Marital status: / Vitals/I&O/Wt Last Vital Signs Temp 98.2 F 07/23/24 11:48 Pulse 70 07/23/24 12:00 Resp 14 07/23/24 12:00 BP 125/76 07/23/24 12:00 Pulse Ox 96 04/13/25 12:00 O2 Del Method Room Air 07/23/24 11:48 Weight last 48 hrs Weight 77.564 kg Physical Exam Narrative: General: Alert oriented x3, patient seen sitting up in bed appearing comfortable at this time. HEENT: Normocephalic, atraumatic, EOMI, Cardio: Regular rate rhythm, normal S1-S2, chest pain not reproducible to palpation at this time. Respiratory: Good bilateral air entry, no wheezes no rhonchi appreciated GI: Abdomen soft, nontender, nondistended, bowel sounds + Behavior: Appropriate and cooperative Extremities: Pulses 2+, no edema, no cyanosis Data 07/23/24 11:55 07/23/24 11:55 A&P Assessment and plan (1) Chest pain: Qualifiers: Chest pain type: other chest pain Qualified Code(s): R07.89 - Other chest pain (2) Benign essential hypertension with target blood pressure below 140/90: (3) Coronary artery disease: (4) Elevated troponin: (5) Stable angina: (6) Atherosclerotic heart disease of [place] coronary artery with other forms of angina pectoris: Plan #Chest pain, most likely consistent with stable angina. #Chronic heart failure, systolic versus diastolic unspecified. #Hypertension #CAD status post PCI in the past. #Hyperlipidemia ? Continue aspirin Plavix atorvastatin ? Await 2-hour 6-hour troponin at this time - Serial EKGs ? Check echo to rule out wall motion abnormalities ? Continue lisinopril, metoprolol tartrate, Protonix ? Hold Lasix and potassium at this time. Patient appears to be euvolemic ? If chest pain recurs will consider Nitropaste. ? Depending upon troponins may consider anticoagulation however at this time we will plan for stress testing in AM. ? N.p.o. at midnight. ? Will consult cardiology. Await further recommendations. ? Continue to monitor on telemetry. Patient may require event monitor at discharge to rule out underlying heart block. Patient did have a 3 to 4-second sinus pause on telemetry. Full code DVT prophylaxis: Heparin SQ twice daily PDMP PDMP Reviewed: Not Reviewed Attestations Medical Necessity Statement*: Chest pain. Observation, expect less than 48-hour stay. Diagnoses Other chest pain R07.89 Chest pain type: other chest pain Benign essential hypertension with target blood pressure below 140/90 I10 Coronary artery disease I25.10 Elevated troponin R79.89 Stable angina I20.89 Atherosclerotic heart disease of [place] coronary artery with other forms of angina pectoris I25.118
--- NOTE | 2024-07-23 12:36 | USCV_ITS ---
Greg Joseph Age: 78 Gender: M : 1945 Exam Date: 07/23/2024 13:42 Ordering Phys: Kristel Alvarenga MD Technologist: Roman Patel [place]am Location[place] [facility] [place]ication: chest pain BP: 125 / 76 HR: 66 Rhythm: Sinus Technical Quality: Adequate MEASUREMENTS (Male / Female) Normal Values 2D ECHO LV Diastolic Diameter PLAX 4.5 cm 4.2 - 5.9 / 3.9 - 5.3 cm IVS Diastolic Thickness 1.2 cm 0.6 - 1.0 / 0.6 - 0.9 cm IVS Systolic Thickness 1.6 cm LVPW Diastolic Thickness 1.3 cm 0.6 - 1.0 / 0.6 - 0.9 cm LVPW Systolic Thickness 1.5 cm LVOT Diameter 2.0 cm LV Ejection Fraction 2D Teich 36.6 % LV Ejection Fraction MOD 4C 54.5 % LV Ejection Fraction MOD 2C 60.6 % LV Ejection Fraction 2C AL 60.5 % LA Diameter 3.4 cm RA Systolic Volume 4C AL 23.7 ml RA Systolic Volume 4C MOD 23.4 ml LA Sys Volume AL 31.8 cm cubed LA Sys Volume Index AL 16.6 cm cubed/m squared Aorta at Sinotubular Diameter 2.6 cm IVC Diameter 1.8 cm M-MODE LA Ao Ratio MM 1.1 AV Cusp Separation MM 1.8 cm DOPPLER AV Peak Velocity 99.0 cm/s LVOT Peak Velocity 75.0 cm/s AV Area Cont Eq vti 2.7 cm squared AV Area Cont Eq pk 2.4 cm squared MV Peak Velocity 116.0 cm/s MV Area PHT 3.1 cm squared Mitral E to A Ratio 0.7 TR Peak Velocity 392.0 cm/s TR Peak Gradient 61.5 mmHg TR Mean Velocity 287.0 cm/s TR Mean Gradient 36.6 mmHg TR Velocity Time Integral 89.9 cm PV Peak Velocity 61.0 cm/s RV Ejection Time 0.3 s FINDINGS Left Ventricle Mild diffuse hypokinesia of the lateral wall and the basal inferior wall segments. Ejection fraction around 50%, visualmild left ventricular hypertrophy. Grade I/IV diastolic dysfunction (abnormal relaxation filling pattern), normal to mildly elevated filling pressures. Right Ventricle Normal right ventricular size and systolic function. Right Atrium The right atrium is normal in size. Left Atrium The left atrium is normal in size. Mitral Valve Mild mitral valve regurgitation. Aortic Valve Thickened aortic valve. Tricuspid Valve Trace tricuspid valve regurgitation. Estimated pulmonary artery peak systolic pressure 40 mmHg Pulmonic Valve Structurally normal pulmonic valve without significant stenosis. There is no pulmonic regurgitation. Pericardium No pericardial effusion. Aorta Normal aortic annulus size. IVC Normal inferior vena cava. CONCLUSIONS Mild diffuse hypokinesia of the lateral wall and the basal inferior wall segments. Ejection fraction around 50%, visualmild left ventricular hypertrophy. Grade I/IV diastolic dysfunction (abnormal relaxation filling pattern), normal to mildly elevated filling pressures. Mild mitral valve regurgitation. Trace tricuspid valve regurgitation. Estimated pulmonary artery peak systolic pressure 40 mmHg Thickened aortic valve. There are no intracardiac masses. No pericardial effusion Compared to the study from 04/02/2016, the wall motion abnormality appears to be new Dr Clyde Gardner MD FACC (Electronically Signed) Final Date: 23 July 2024 21:07 S
[2024-07-23 12:56] LABS: Estmated Average Glucose 117; Hemoglobin A1C 5.7 % (4.0-6.0)
[2024-07-23 13:04] LABS: NT Pro B Type Natriuretic Pept 240 pg/mL (0-450); Procalcitonin 0.05 ng/mL (0-0.5)
[2024-07-23] MEDS: aspirin 81 mg Chew Tablet 324 MG PO (13:30)
[2024-07-23] MEDS: heparin 5,000 unit/mL INJ 1 mL 5000 UNIT SUBCUT (13:30)
--- NOTE | 2024-07-23 13:39 | PC.NURSE ---
Patient transferred from ED to CSU via a wheelchair at 1339.
--- NOTE | 2024-07-23 13:48 | ECG_ITS ---
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 Measurements Intervals [place] Rate: 68 P: 58 [place]: 160 QRS: 39 QRSD: 87 T: 10 QT: 385 QTc: 409 Interpretive Statements SINUS RHYTHM Compared to ECG 07/23/2024 11:43:39 No significant changes Electronically Signed On 07-23-2024 21:19:52 CDT by Clyde Gardner M.D. [id number]
[2024-07-23 13:56] LABS: Troponin 5 2HR 73.08 ng/L (0-15); Troponin 5 2HR Delta 7.08 ABS# (0-10)
[2024-07-23 16:13] LABS: Amphetamines Screen Urine Negative (Negative); Barbiturates Screen Urine Negative (Negative); Benzodiazepines Screen Urine Negative (Negative); Cocaine Screen Urine Negative (Negative); Opiate Screen Urine Negative (Negative); PCP Screen Urine Negative (Negative); THC Screen Urine Positive (Negative)
--- NOTE | 2024-07-23 17:47 | PC.NURSE ---
Provider and nursing were at bedside and saw patient's telemetry with the 3 second pauses. Provider will consult cardiology. Provider is also updated that patient does not tolerated simvastatin, he has severe leg cramps, provider ordered to hold the Lipitor.
--- NOTE | 2024-07-23 17:48 | ECG_ITS ---
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 Measurements Intervals [place] Rate: 78 P: 41 ME: 158 QRS: 23 QRSD: 89 T: 30 QT: 371 QTc: 425 Interpretive Statements SINUS RHYTHM NONSPECIFIC T-WAVE ABNORMALITY Compared to ECG 07/23/2024 13:25:07 T-wave abnormality now present Electronically Signed On 07-23-2024 21:18:19 CDT by Clyde Gardner M.D. [email or web address]
[2024-07-23 18:17] LABS: Troponin 5 6HR 83.73 ng/L (0-15)
[2024-07-23 18:18] LABS: Troponin 5 6HR Delta 17.73 ng/L (0-12)
[2024-07-23] MEDS: heparin 5,000 unit/mL INJ 1 mL IVP (18:54)
[2024-07-23] MEDS: heparin drip 25,000 UNIT/500 ML PREMIX 22 UNIT IV (18:56)
--- NOTE | 2024-07-23 19:04 | PM.CONSULT ---
Providers/Reason For Consult Consulting Physician/Specialty*: MILY Gardner MD/cardiology Reason for Consult*: Patient with chest pain/elevated troponin T Requesting Physician: Dr. Alvarenga Attending Physician: Kristel Alvarenga MD History of Present Illness History of Present Illness Greg Joseph is a 78 year old male is admitted to hospital emergency room. He presents with the complaints of chest pain since last Wednesday. He was found to have elevated troponin T. Cardiac consult is requested for further cardiac evaluation recommendations. This patient is known to have atherosclerotic heart disease, high blood pressure and dyslipidemia. In 2015, he presented with an acute inferior wall myocardial infarction. Cardiac cauterization revealed a high-grade complex lesion in the right coronary artery. He underwent PCI of this lesion with the difficulty. He was placed on Plavix ever since. In 2020, he had a Myocardial perfusion imaging which was essentially unremarkable. This patient has been noncompliant with medical follow-ups. He apparently has been doing okay with no chest pain or chest tightness up until last Wednesday when he started having chest pain as he was coming uphill after taking his dog for a walk he started having pain in the right upper part of the chest radiating across the chest, associate with some shortness of breath. The pain has been waxing and waning since then. Because of the persistence of these pain with some worsening today, he decided to come to the hospital. He has no fever or chills. No cough no other associated symptoms. Intensity of the pain was moderate. He has a history of hypertension, dyslipidemia, gastroesophageal reflux disease and posttraumatic stress disorder. He smokes marijuana for the last 40 years or so. No alcohol abuse or any other substance abuse. No significant family history. Patient was found to have sinus pauses of more than 3 seconds on the monitor today. So he was taken off the beta-hai for the time being. Review of Systems Narrative: CONSTITUTIONAL: No fever or chills. EYES: No blurring of vision or other visual disturbances lately. ENT: No hoarseness of voice, auditory disturbances or sore throat. CARDIOVASCULAR: As mentioned above. RESPIRATORY: No significant cough. GASTROINTESTINAL: History of GERD as mentioned above GENITOURINARY: History of urethral polyp and hematuria many years ago INTEGUMENTARY: No skin rashes or history of skin cancer. NEURO: No transient ischemic attacks or amaurosis. PSYCHIATRIC: No history of psychosis or major depression. HEMATOLOGIC: No bleeding disorders or significant anemia. ENDOCRINE: No history of polyuria or polydipsia. MUSCULOSKELETAL: No recent joint pain or swelling. ALLERGY/IMMUNOLOGY: As mentioned above. Medications/Allergies Home Medications ?Medication ?Instructions ?Recorded ?Confirmed ?Last Taken ?Type cholecalciferol (vitamin D3) 25 25 mcg PO BEDTIME 04/15/20 07/23/24 07/23/24 History mcg (1,000 unit) capsule furosemide 40 mg tablet (Lasix) 40 mg PO QAM 04/15/20 07/23/24 07/23/24 History pantoprazole 40 mg tablet,delayed 40 mg PO QAM 04/15/20 07/23/24 07/23/24 History release potassium chloride 20 mEq 20 meq PO QAM 04/15/20 07/23/24 07/23/24 07:00 History tablet,extended release biotin 5,000 mcg disintegrating 5,000 mcg PO BEDTIME 02/27/21 07/23/24 06/10/24 History tablet clopidogrel 75 mg tablet (Plavix) 75 mg PO QAM 02/27/21 07/23/24 07/23/24 History lisinopril 5 mg tablet 5 mg PO BEDTIME 02/27/21 07/23/24 07/23/24 History metoprolol tartrate 50 mg tablet 25 mg PO QAM 02/27/21 07/23/24 07/23/24 History Allergies Allergy/AdvReac Type Severity Reaction Status Date / Time simvastatin Allergy Severe ALGY-Joint Verified 07/23/24 16:09 Pain meperidine (From Demerol) Allergy unknown Verified 03/03/23 13:18 Penicillins Allergy unknown Verified 03/03/23 13:18 Current Medications Generic Name Dose Route Start Last Admin Trade Name Freq PRN Reason Stop Dose Admin Aspirin 81 mg 07/23/24 12:45 07/23/24 13:33 Aspirin 81 Mg Ec Tablet PO Not Given DAILY JOVANNY Heparin Sodium/Sodium Chloride 25,000 unit in 500 mls @ 0 mls/hr 07/23/24 18:45 07/23/24 18:56 Heparin Drip IV 14.35 unit/kg/hr CONT JOVANNY 22 mls/hr Administration Protocol Per Protocol PFSH Acute PFSH: Medical History History of tobacco use Urethral bleeding Benign essential hypertension with target blood pressure below 140/90 Atherosclerotic heart disease of [place] coronary artery with other forms of angina pectoris Atypical chest pain Hypercholesteremia Hx of chronic arthritis History of elevated PSA Hx of atherosclerotic cardiovascular disease History of marijuana use History of hypertension Hx of gastroesophageal reflux (GERD) Hx of myocardial infarction History of cellulitis Hx of spinal stenosis History of post traumatic stress disorder History of tachycardia Surgical History History of PTCA Hx of appendectomy Hx of tonsillectomy Hx of coronary angioplasty Hx of bone marrow transplant Hx of hand surgery Family History Brother Cancer Mother Dementia Denies family history of Diabetes CAD (coronary artery disease) Clotting disorder Chronic kidney disease (CKD) Suicide Anesthesia complication Bleeding disorder Lung disease Stroke Social History Smoking and tobacco/nicotine status: former use of tobacco/nicotine Alcohol intake: former Substance/Drug Use: current Substance/Drug use frequency: few times a week Marital status: / Vitals/I&O/Wt Last Vital Signs Temp 98.0 F 07/23/24 15:55 Pulse 81 07/23/24 15:55 Resp 14 07/23/24 15:55 BP 133/73 07/23/24 15:55 Pulse Ox 97 07/23/24 15:55 O2 Del Method Room Air 07/23/24 15:55 07/23/24 07/23/24 07/23/24 06:59 14:59 22:59 Intake Total 360 / 360 Output Total 100 / 100 Balance 260 / 260 Weight last 48 hrs Weight 169 lb Weight 171 lb Physical Exam Narrative: GENERAL: The patient is alert and oriented times three. Not in any acute distress. HEENT: No significant pallor, icterus or lymphadenopathy.Oral cavity: There are no mucous membrane lesions. NECK: Trachea appears to be central. No masses noted. No JVD or thyromegaly appreciated. RESPIRATORY: Chest is symmetrical. No intercostals muscle retraction or any accessory muscle activation. There is no chest wall tenderness. Breath sounds are heard bilaterally. No rales or rhonchi heard. No evidence of any consolidation. BREASTS: Deferred. HEART: The heart sounds are normal. No S3 or S4. No significant murmurs. No pericardial rub ABDOMEN: No vessel pulsations or distention. No tenderness. No organomegaly appreciated. Bowel sounds are normally heard. : Deferred. RECTAL: Deferred. LYMPHATIC: No lymphadenopathy noted in the neck. EXTREMITIES: No edema or cyanosis. No clubbing. MUSCULOSKELETAL: No acute joint deformities or swelling SKIN: There are no significant rashes or ecchymosis NEUROPSYCHIATRIC: The patient is alert and oriented x3. Appears to be in a good mood. No tremors or rigidity noted. Data 07/24/24 00:31 07/24/24 00:31 Other Labs: Laboratory Last Values WBC 7.78 10^3/uL (3.29-11.43) 07/23/24 11:55 RBC 4.71 10^6/uL (3.85-5.65) 07/23/24 11:55 Hgb 14.40 g/dL (11.27-16.99) 07/23/24 11:55 Hct 42.6 % (37-53) 07/23/24 11:55 MCV 90.4 fl (82-101) 07/23/24 11:55 MCH 30.6 pg (27-33) 07/23/24 11:55 MCHC 33.8 g/dL (30-55) 07/23/24 11:55 RDW 12.7 % (12.1-15.1) 07/23/24 11:55 Plt Count 241 10^3/cmm (157-399) 07/23/24 11:55 MPV 9.2 fL (7.4-10.4) 07/23/24 11:55 Neut % (Auto) 71.1 % 07/23/24 11:55 Lymph % (Auto) 16.5 % 07/23/24 11:55 Beckham % (Auto) 7.1 % 07/23/24 11:55 Eos % (Auto) 4.1 % 07/23/24 11:55 Baso % (Auto) 0.8 % 07/23/24 11:55 Neut # (Auto) 5.54 10^3/uL (1.8-7.7) 07/23/24 11:55 Lymph # (Auto) 1.3 10^3/uL (0.8-4.8) 07/23/24 11:55 Beckham # (Auto) 0.6 10^3/uL (0.2-0.9) 07/23/24 11:55 Eos # (Auto) 0.3 10^3/uL (0.0-0.8) 07/23/24 11:55 Baso # (Auto) 0.1 10^3/uL (0.0-0.1) 07/23/24 11:55 Nucleated RBC % (auto) 0 % 07/23/24 11:55 Nucleated RBCs # 0.0 /100WBC 07/23/24 11:55 Sodium 139 mmol/L (136-145) 07/23/24 11:55 Potassium 3.7 mmol/L (3.5-5.1) 07/23/24 11:55 Chloride 104 mmol/L (98-107) 07/23/24 11:55 Carbon Dioxide 23 mmol/L (22-29) 07/23/24 11:55 Anion Gap 15.7 (5-19) 07/23/24 11:55 BUN 15 mg/dL (8-23) 07/23/24 11:55 Creatinine 1.0 mg/dL (0.7-1.2) 07/23/24 11:55 GFR Calculation Not Reportable 07/23/24 11:55 Glucose 137 mg/dL (65-115) H 07/23/24 11:55 Estimat Average Glucose 117 07/23/24 11:55 Hemoglobin A1c 5.7 % (4.0-6.0) 07/23/24 11:55 Calculated Osmolality 291 mOsm/kg (285-295) 07/23/24 11:55 Calcium 8.6 mg/dL (8.5-10.5) 07/23/24 11:55 Total Bilirubin 0.5 mg/dL (0.15-1.2) 07/23/24 11:55 AST 14 U/L (0-40) 07/23/24 11:55 ALT 10 U/L (0-41) 07/23/24 11:55 Alkaline Phosphatase 67 U/L (40-130) 07/23/24 11:55 Troponin T Baseline 66 ng/L (0-15) H 07/23/24 11:55 Troponin T 120 Minute 73.08 ng/L (0-15) H 07/23/24 13:30 Delta Troponin T 7.08 ABS# (0-10) 07/23/24 13:30 Troponin T Hi Sens 6Hr 83.73 ng/L (0-15) H 07/23/24 17:25 Troponin T Hi Sens 6Hr Delta 17.73 ng/L (0-12) H* 07/23/24 17:25 NT-Pro-B Natriuret Pep 240 pg/mL (0-450) 07/23/24 11:55 Total Protein 6.4 g/dL (6.6-8.7) L 07/23/24 11:55 Albumin 4.2 g/dL (3.5-5.2) 07/23/24 11:55 Globulin 2.2 g/dL (1.3-4.6) 07/23/24 11:55 Lipase 50 U/L (13-60) 07/23/24 11:55 Procalcitonin 0.05 ng/mL (0-0.5) 07/23/24 11:55 Urine Opiates Screen Negative ng/mL (Negative) 07/23/24 15:50 Ur Barbiturates Screen Negative ng/mL (Negative) 07/23/24 15:50 Ur Phencyclidine Scrn Negative ng/mL (Negative) 07/23/24 15:50 Ur Amphetamines Screen Negative ng/mL (Negative) 07/23/24 15:50 U Benzodiazepines Scrn Negative ng/mL (Negative) 07/23/24 15:50 Urine Cocaine Screen Negative ng/mL (Negative) 07/23/24 15:50 U Marijuana (THC) Screen Positive ng/mL (Negative) H 07/23/24 15:50 Other data: EKG from today 07/23/2024 Normal sinus rhythm with features of old inferior wall myocardial infarction. Some nonspecific T wave changes. 07/17/20 Stress Test 1. Myocardial perfusion imaging revealing small area of persistent decreased tracer up take in the mid and apical inferior wall region, suggestive of myocardial scarring versus attrition artifact. 2. Normal LV ejection fraction 74%. 3. LV wall motion analysis revealing no gross wall motion normalities. 4. Normal LV volume. No significant coronary ischemia, based on the above findings Echo 04/02/16 1. Normal left ventricular size, systolic function and wall thickness with no regional wall motion abnormalities. Left ventricular ejection fraction is estimated at [55]%. Normal left ventricular wall thickness. Normal diastolic filling pattern. 2. No significant chamber abnormalities. 3. No sigificant valve abnormalities. 4. There is no pericardial effusion. 5. There are no intracardiac masses. 6. Pulmonary artery systolic pressure is within normal limits. 7. Right atrial pressure is around 5 mm of mercury. 8. There are no prior echocardiogram studies to compare. [facility] (emergent) 03/08/16 Procedure Summary Typical pain of an acute injury. EKG changes consistent with an acute inferior wall NV. Patient is very restless and would not hold still during the procedure. Difficult guided wire placement. The delay was in crossing the lesion as it was in a point of extreme tortuosity and there was difficulty getting the wire through the lesion in the mid vessel. The lesion underwent angioplasty and stenting. There is mild diffuse irregularity on the left. Mild to moderate inferior wall hypokinesis, ejection fraction 55%. Recommendations Medical treatment. We will hold his TOMMY inhibitor and avoid beta blockers. He has a blood pressure is 80 systolic at the end of the procedure. A&P Assessment and plan (1) Atherosclerotic heart disease of [place] coronary artery with unstable angina pectoris: Patient symptoms are suggestive of an unstable angina. Hemodynamically seems to be stable. May continue on the aspirin, Plavix, IV heparin and topical nitrates. Patient apparently had some sinus pauses on telemetry. For that reason, the beta-hai is on hold. Qualifiers: [place] vs. transplanted heart: [place] heart Qualified Code(s): I25.110 - Atherosclerotic heart disease of [place] coronary artery with unstable angina pectoris (2) Elevated troponin: Patient's clinical features of a history of a non-ST relation myocardial infarction. He has a delta of around 18 at 6 hours. Baseline troponin T was around 70. May continue on the current medications. (3) Hypercholesteremia: Patient apparently has a history of? Intolerance to simvastatin. I made to try him a small dose of Crestor and see the response (4) Benign essential hypertension with target blood pressure below 140/90: Continue on the current medications. (5) Marijuana abuse, continuous: Strongly advised to quit. Cardiovascular medications were discussed. (6) Sinus node dysfunction: Patient apparently was found to have a pause of more than 3 seconds on the monitor. I do not have any documentation of this at this time. Most likely he may have sinus node dysfunction. Will hold off on the beta-hai for the time being. Plan Echocardiogram would be helpful to evaluate the LV function and rule out any other pathology. Patient may start on Nitropaste 1 inch every 6 hours 20 chest wall. Will be kept on aspirin, Plavix, IV heparin and the low-dose of statin. Based on the clinical progress, further recommendations will be made. We may consider doing a cardiac catheterization in view of his history and presenting findings. Will keep n.p.o. after midnight Thank you for the opportunity to evaluate this patient and make these recommendations PDMP PDMP Reviewed: Not Reviewed Coding Level of Care Code 39399 Diagnoses Atherosclerosis of [place] coronary artery of [place] heart with unstable angina pectoris I25.110 [place] vs. transplanted heart: [place] heart Elevated troponin R79.89 Hypercholesteremia E78.00 Benign essential hypertension with target blood pressure below 140/90 I10 Marijuana abuse, continuous F12.10 Sinus node dysfunction I49.5
[2024-07-23] MEDS: lisinopril 5 mg Tablet PO (20:17)
[2024-07-24] VITALS (8 sets, daily range): BP systolic 108–119; BP diastolic 61–74; PULSE 78–119; RESP 12–17; TEMP 36.4–36.9; O2SAT 93–98
[2024-07-24 00:56] LABS: Basophils # 0.1 10^3/uL (0.0-0.1); Basophils % 0.8 %; Eosinophils # 0.6 10^3/uL (0.0-0.8); Eosinophils % 6.3 %; Hematocrit 42.1 % (37-53); Lymphocytes % 22.3 %; Mean Corpuscular HGB Conc 33.7 g/dL (30-55); Mean Corpuscular Hemoglobin 30.4 pg (27-33); Mean Corpuscular Volume 90.1 fl (82-101); Mean Platelet Volume 9.7 fL (7.4-10.4); Monocytes # 0.7 10^3/uL (0.2-0.9); Monocytes % 7.5 %; Neutrophils # 5.57 10^3/uL (1.8-7.7); Neutrophils % 62.9 %; Nucleated Red Blood Cells % 0 %; Platelet Count 242 10^3/cmm (157-399); Red Blood Count 4.67 10^6/uL (3.85-5.65); Red Cell Distribution Width 12.9 % (12.1-15.1); White Blood Count 8.85 10^3/uL (3.29-11.43)
[2024-07-24 01:08] LABS: Alanine Aminotransferase 10 U/L (0-41); Alkaline Phosphatase 70 U/L (40-130); Anion Gap 15.7 (5-19); Aspartate Amino Transferase 15 U/L (0-40); Blood Urea Nitrogen 14 mg/dL (8-23); Calcium 8.9 mg/dL (8.5-10.5); Carbon Dioxide 25 mmol/L (22-29); Chloride 105 mmol/L (98-107); Creatinine Clr Calc Pharmacy 54.8409; Globulin 2.7 g/dL (1.3-4.6); Glucose 102 mg/dL (65-115); Magnesium 2.2 mg/dL (1.7-2.3); Osmolality Calculated 295 mOsm/kg (285-295); Potassium 3.7 mmol/L (3.5-5.1); Sodium 142 mmol/L (136-145); Total Bilirubin 0.3 mg/dL (0.15-1.2); Total Protein 6.7 g/dL (6.6-8.7)
[2024-07-24 01:18] LABS: Partial Thromboplastin Time 152.7 SECONDS (23.9-36.7)
[2024-07-24] MEDS: pantoprazole DR 40 mg Tablet PO (05:28)
--- OUTSIDE RECORDS SUMMARY | 2024-07-24 06:06 | XMS_ITS | Clinical Summary ---
Author Organization [facility] Address [address] [place] [address] Phone Care Team Providers Care Automated Access Systems Technician Name Role Phone Unavailable Primary Care Provider Unavailabl e Social History Tobacco Use Types Packs/Day Years Used Date Smoking Tobacco: Never Assessed Sex and Gender Information Value Date Recorded Sex Assigned at Not on file Legal Sex Male 3:02 AM [employer] Gender Identity Not on file Sexual Orientation Not on file Plan of Treatment Health Maintenance Due Date Last Done Comments DTAP/TDAP/TD VACCINES (1 - Tdap) 1965 PNEUMOCOCCAL VACCINE 50+ YEARS (1 of 1 - PCV) 08/06/18 97 ZOSTER VACCINE (1 of 2) 1996 RSV VACCINE (60+ or ) (1 - 1-dose 75+ series) 2021 INFLUENZA VACCINE (#1) 2023 Insurance [facility] [facility] [id number] [facility]
--- OUTSIDE RECORDS SUMMARY | 2024-07-24 06:06 | XMS_ITS ---
Author Organization [facility] Address [address] [facility] [place] [address] Care Team Providers Care Charge Manager Name Role Phone Primitivo Kelly Primary Care Provider Haven PabloERJAIR Unavailable [phone] Allergies Allergen (clinical drug ingredient) Drug/Non Drug Allergy documented on EMR Reaction Allergy Type Onset Date Status meperidine Demerol Unknown Drug Allergy Active Penicillin Unknown Drug Allergy Active rosuvastatin Rosuvastatin Unknown Drug Allergy A ctive simvastatin Simvastatin Unknown Drug Allergy Act naveen Results Component Value Reference Range Notes Urinalysis, Routine Reviewed date:02/24/2024 03:32:48 PM Interpretation: Performing Lab: Notes/Report: Urine-Color yellow Appearance clear Glucose - Bilirubin - Ketones - Specific [place] 1.010 Occult Blood - pH 6.0 Urine Protein - Urobilinogen,Semi-Qn - Nitrite, Urine - WBC Esterase - REASON FOR VISIT w/ CT Medications Medication SIG (Take, Route, Frequency, Duration) Notes Start Date End Date Status diazePAM 5 MG take 1 tablet Orally 30 minute prior to procedure for 1 days 01/27/2024 Active Cholecalciferol Acti ve Citalopram Hydrobromide 20 MG 1 tablet Orally Once a day Active Furosemide 40 MG 1 tablet Orally Once a day Active Lidocaine 5 % 1 application as nee ded Externally Three times a day Active Lisinopril 5 MG 2 tablets Orally Onc e a day Active Metoprolol Tartrate 50 MG 1 tablet with food Orally Twice a day Active Pantoprazole Sodium 40 MG 1 tablet 1/2 t o 1 hour before morning meal Orally Once a day Active predniSONE 10 MG 1 tablet Orally Once a day Active Potassium & Magnesium Aspartat 250-250 MG 1 capsule with a meal Orally Once a day Active Clopidogrel Bisulfate 75 MG 1 tablet Ora lly Once a day Active Problems Problem Type SNOMED Code ICD Code Onset Dates Problem Status W/U Status Risk Notes Problem Gross hematuria (672596551) Gross hematuria (R31.0) Active confirmed Problem Exposure to Agent [place] (599248216) Agent orange exposure (Z77.098) Active confirmed Problem Benign prostatic hypertrophy without outflow obstruction (116484047) BPH loc w/o ur obs/LUTS (N40.0) Active confirmed Vital Signs Blood pressure systolic 128 mm Hg 02/24/20 24 Blood pressure diastolic 78 mm Hg 024 Heart Rate 62 /min 02/24/2024 Height 66 in 02/24/2024 Weight 160 lbs 02/24/2024 BMI 25.82 kg/m2 02/24/2024 Height-cm 167.64 cm 02/24/2024 Weight-kg 72.57 kg 02/24/2024 Encounters Encounter Location Date Provider Diagnosis [facility] [address] [place] [address] 02/24/2024 JAIR GOLDSMITH Microscopic hematuri a R31.29 ; Gross hematuria R31.0 ; Agent orange exposure Z77.098 and BPH loc w/o ur obs/LUTS N40.0 Assessments Encounter Date Diagnosis (ICD Code) Assessment Notes Treatment Notes Treatment Clinical Notes Section Notes 02/24/2024 Microscopic hematuria (ICD-10 - R31.29) 78 y/oi M with Hematuria, BPH with LUTS. CT shows enlarged prostate with thickened bladder wall. Pt defers cysto at this time due to having one done by Dr. Ordaz in the past. Stable at this time and will continue surveillance. UA clear today. Deneis recent hematuria. He will return in 6m with UA/PVR. Return sooner with any concerns Plan: -RTC in 6m with UA/PVR/IPSS Paula Mclaughlin Scribe, am scribing for, and in the presence of, Dr. Goldsmith. I, Dr. Jair Goldsmith, personally performed the services prescribed in this documentation, as scribed by Paula Juan, in my presence, and it is both accurate and complete. 02/24/2024 Gross hematuria (ICD-10 - R31.0) 78 y/oi M with Hematuria, BPH with LUTS. CT shows enlarged prostate with thickened bladder wall. Pt defers cysto at this time due to having one done by Dr. Ordaz in the past. Stable at this time and will continue surveillance. UA clear today. Deneis recent hematuria. He will return in 6m with UA/PVR. Return sooner with any concerns Plan: -RTC in 6m with UA/PVR/IPSS I, Naye Barrigaibe, am scribing for, and in the presence of, Dr. Goldsmith. I, Dr. Jair Goldsmith, personally performed the services prescribed in this documentation, as scribed by Paula Juan, in my presence, and it is both accurate and complete. 02/24/2024 Agent orange exposure (ICD-10 - Z77.098) 78 y/oi M with Hematuria, BPH with LUTS. CT shows enlarged prostate with thickened bladder wall. Pt defers cysto at this time due to having one done by Dr. Ordaz in the past. Stable at this time and will continue surveillance. UA clear today. Deneis recent hematuria. He will return in 6m with UA/PVR. Return sooner with any concerns Plan: -RTC in 6m with UA/PVR/IPSS I, Naye Barrigaibe, am scribing for, and in the presence of, Dr. Goldsmith. I, Dr. Jair Goldsmith, personally performed the services prescribed in this documentation, as scribed by Paula Juan, in my presence, and it is both accurate and complete. 02/24/2024 BPH loc w/o ur obs/LUTS (ICD-10 - N40.0) 78 y/oi M with Hematuria, BPH with LUTS. CT shows enlarged prostate with thickened bladder wall. Pt defers cysto at this time due to having one done by Dr. Ordaz in the past. Stable at this time and will continue surveillance. UA clear today. Deneis recent hematuria. He will return in 6m with UA/PVR. Return sooner with any concerns Plan: -RTC in 6m with UA/PVR/IPSS I, Naye Barrigaibe, am scribing for, and in the presence of, Dr. Goldsmith. I, Dr. Jair Goldsmith, personally performed the services prescribed in this documentation, as scribed by Paula Juan, in my presence, and it is both accurate and complete. Plan Of Treatment Next Appt Details Follow Up: 6 Months, Reason: Provider Name:JAIR Quiroz, 08/24/2024 02:40:00 PM, [address] [place], [address], Progress Notes * Greg MEJIA RDOB: [birth year] (78 yo M)Acc No.[id number]:02/24/2024 Patient:?Greg MEJIA Provider:?JAIR GOLDSMITH MD :1945???Age:78 Y???Sex:Male Carlos e:02/24/2024 Address:[facility] [address] [place], [place] [phone] Pcp:Primitivo Kelly Subjective: * Chief Complaints: * ???1. w/ CT. * HPI: ???:?Pt is a 78yoM who has been referred from the [place] for gross hematuria. He had an episode several weeks ago. It was asymptomatic and painless. He denies any difficulty voiding. No dysuria, urgency, frequency. He says that he saw Dr. Ordaz 2 years ago for hematuria and had cysto that shown a lesion on my bladder but patient says that he did not undergo any type of surgery for it. I do not have records. He is a [place] with Agent [place] exposure.? He reports normal prostate cancer screenings with [facility]. Denies any family h/o malignancy. Here today for further evaluation of the anatomy with Cystoscopy with CT. Notes stable LUTs.? Denies any recent Gross hematuria CT obtained on 02/24/24 resulting in?Very large prostate with thick walled urinary bladder. No nephrolithiasis or obstruction appreciated involving the kidneys. CYSTO was not done today. * ROS:?General / Constitutional Patient denies chills, fever, change in appetite. Gastrointestinal Patient denies abdominal pain, nausea, vomiting, diarrhea. Genitourinary Comments See HPI for details. * Medical History:?Depression, Psa, Hypertension, Gerd, Osteoarthrosis, Ptsd, Tachycardia, Anxiety. * Surgical History:?Denies Pas t Surgical History. * Hospitalization/Major Diagno stic Procedure:?Denies Past Hospitalization. * Family History:?Father: dece ased.?Mother: .? * Medications:?Taking Clopidog rel Bisulfate 75 MG Tablet 1 tablet Orally Once a day , Taking Potassium & Magnesium Aspartat 250-250 MG Capsule 1 capsule with a meal Orally Once a day , Taking predniSONE 10 MG Tablet 1 tablet Orally Once a day , Taking Pantoprazole Sodium 40 MG Tablet Delayed Release 1 tablet 1/2 to 1 hour before morning meal Orally Once a day , Taking Metoprolol Tartrate 50 MG Tablet 1 tablet with food Orally Twice a day , Taking Lisinopril 5 MG Tablet 2 tablets Orally Once a day , Taking Lidocaine 5 % Ointment 1 application as needed Externally Three times a day , Taking Furosemide 40 MG Tablet 1 tablet Orally Once a day , Taking Citalopram Hydrobromide 20 MG Tablet 1 tablet Orally Once a day , Taking Cholecalciferol , Taking diazePAM 5 MG Tablet take 1 tablet Orally 30 minute prior to procedure , Medication List reviewed and reconciled with the patient * Allergies:?Demerol, Penicill in, Rosuvastatin, Simvastatin. Objective: * Vitals:?BP: 128/78 mm Hg, HR : 62 /min, Wt: 160 lbs, Wt-k.57 kg, Ht: 66 in, Ht-cm: 167.64 cm, BMI: 25.82 Index, Body Surface Area: 1.84. * Examination: ???General Examination: ?General appearance:?alert, pleasant, well-nourished and in no acute distress.?Chest:?resp even and nonlabored.?Abdomen:?soft, NT, ND.?Male genitourinary:?no CVAT, No SPT, no bladder distention, genital exam deferred.? Assessment: * Assessment: 1.?Gross hematuria - R31.0 ( Primary)???2.?Microscopic hematuria - R31.29???3.?Agent orange exposure - Z77.098???4.?BPH loc w/o ur obs/LUTS - N40.0??? 78 y/oi M with Hematuria, BP H with LUTS. CT shows enlarged prostate with thickened bladder wall. Pt defers cysto at this time due to having one done by Dr. Ordaz in the past. ?Stable at this time and will continue surveillance. UA clear today. Deneis recent hematuria.?He will return in 6m with UA/PVR. Return sooner with any concerns? Plan: -RTC in 6m with UA/PVR/IPSS I, Paula Juan, Scribe, am scribing for, and in the presence of, Dr. Goldsmith. I, Dr. Jair Goldsmith, personally performed the services prescribed in this documentation, as scribed by Paula Juan, in my presence, and it is both accurate and complete. Plan: * Treatment: ? Value Reference Range ?Urine-Color yellow * ?Appearance clear * ?Glucose - * ?Bilirubin - * ?Ketones - * ?Specific [place] 1.010 * ?Occult Blood - * ?pH 6.0 * ?Urine Protein - * ?Urobilinogen,Semi-Qn - * ?Nitrite, Urine - * ?WBC Esterase - * Procedure Codes:?36681 URINA LYSIS, AUTO, W/O SCOPE * Follow Up:?6 Months * Billing Information: * Visit Code:? 80531 Office Visit, Est Pt., Level 4. * Procedure Codes:? 52317 URINALYSIS, AUTO, W/O SCOPE. * TRAFFIC SYSTEMS TECHNICIAN Sign off status: Completed true * Provider:?JAIR GOLDSMITH MD Date:?02/10 Generated for Alexeyi ng/Kathyg/eTransmitting on:?07/24/2024 06:06 AM CDT History and Physical Notes * HPI (History of Present Illness) Category Sub-Category Detail Notes Category Not es Pt is a 78yoM who [facility]. He had an episode several weeks ago. It was asymptomatic and painless. He denies any difficulty voiding. No dysuria, urgency, frequency. He says that he saw Dr. Ordaz 2 years ago for hematuria and had cysto that shown a lesion on my bladder but patient says that he did not undergo any type of surgery for it. I do not have records. He is a [place] with Agent [place] exposure. He reports normal prostate cancer screenings with [place]. Denies any family h/o malignancy. Here today for further evaluation of the anatomy with Cystoscopy with CT. Notes stable LUTs. Denies any recent Gross hematuria CT obtained on 02/24/24 resulting in Very large prostate with thick walled urinary bladder. No nephrolithiasis or obstruction appreciated involving the kidneys. CYSTO was not done today. Examination Category Sub-Category Detail Notes Category Not es General Examination General appearance: alert, p leasant, well-nourished and in no acute distress Chest: resp even and nonlab ored Abdomen: soft, NT, ND Male genitourinary: no CVAT, No SPT, no bladder distention, genital exam deferred
--- OUTSIDE RECORDS SUMMARY | 2024-07-24 06:06 | XMS_ITS | Patient Health Record ---
Author Organization [facility] Address [address] [place] [address] Care Team Providers Care Brim Stretcher Name Role Phone Primitivo Kelly Primary Care Provider Unavailab paola VELAZQUEZJAIR EAGLE Unavailable [phone] WALTER MIRELES Unavailable [phone] Allergies Allergen (clinical drug ingredient) Drug/Non Drug Allergy documented on EMR Reaction Allergy Type Onset Date Status meperidine Demerol Unknown Drug Allergy Active Penicillin Unknown Drug Allergy Active rosuvastatin Rosuvastatin Unknown Drug Allergy A ctive simvastatin Simvastatin Unknown Drug Allergy Act naveen Results Component Value Reference Range Notes Urinalysis, Routine Reviewed date:01/27/2024 01:41:08 PM Interpretation: Performing Lab: Notes/Report: Urine-Color yellow Appearance clear Glucose - Bilirubin - Ketones - Specific [place] 1.020 Occult Blood - pH 6.0 Urine Protein - Urobilinogen,Semi-Qn - Nitrite, Urine - WBC Esterase - Blood Urea Nitrogen (BUN) Reviewed date:02/25/2024 08:53:51 AM Interpretation: Performing Lab: Notes/Report: Testing performed at: [address] [place] [address] CLIA ID [id number] BUN 19 7-21 MG/DL Creatinine Serum Reviewed date:02/25/2024 08:53:44 AM Interpretation: Performing Lab: Notes/Report: M-fcjnyt-d-benzoquinone imine (NAPQI) is a metabolite of acetaminophen, NAPQI concentrations of apparoximately 10 mg/L correlation to toxic levels of acetaminophen demonstrates a greater than or equil to 10% change in results. NAPQI concentrations greater than this may lead to falsely depressed results for patient samples. Calculation performed from GFR calculator provided by the National [employer]. Glomerular Filtration rate(GRF) is the best overall index of kidney function. Normal GFR varies according to age,sex, body size, and declines with age. The National Kid[employer] Foundation recommends using the CKD-EPI Creatinine Equation(2020) to estimate GFR. Use of this assay is not recommended for patients undergoing treatment with phenindione, due to the potential for falsely depressed results. Testing performed at: [place] [address] CLIA ID [id number] Creat 1.26 .57-1.17 MG/DL GFR 58.3 Urinalysis, Routine Reviewed date:02/24/2024 03:32:48 PM Interpretation: Performing Lab: Notes/Report: Urine-Color yellow Appearance clear Glucose - Bilirubin - Ketones - Specific [place] 1.010 Occult Blood - pH 6.0 Urine Protein - Urobilinogen,Semi-Qn - Nitrite, Urine - WBC Esterase - CT Abdomen, Pelvis w/ + w/o Contrast--[id number] Reviewed date:02/24/2024 03:08:41 PM Interpretation: Performing Lab: Notes/Report: See Below For Report CT Abdomen, Pelvis w/ + w/o Contrast Read See Below For Report Reason For Referral No Information Medications Medication SIG (Take, Route, Frequency, Duration) Notes Start Date End Date Status Clopidogrel Bisulfate 75 MG 1 tablet Ora lly Once a day Active diazePAM 5 MG take 1 tablet Orally [...] a meal Orally Once a day Active Problems Problem Type SNOMED Code ICD Code Onset Dates Problem Status W/U Status Risk Notes Problem Gross hematuria (780001114) Gross hematuria (R31.0) Active confirmed Problem Benign prostatic hypertrophy without outflow obstruction (772248850) BPH loc w/o ur obs/LUTS (N40.0) Active confirmed Problem Exposure to Agent [place] (575364387) Agent orange exposure (Z77.098) Active confirmed Vital Signs Heart Rate 62 /min 02/24/2024 Blood pressure diastolic 78 mm Hg 02/24/2024 Height-cm 167.64 cm 02/24/2024 Weight-kg 72.57 kg 02/24/2024 Height 66 in 02/24/2024 Blood pressure systolic 128 mm Hg 02/24/2024 Weight 160 lbs 02/24/2024 BMI 25.82 kg/m2 02/24/2024 Procedures Procedure Date Ordered Date Performed Result Body Sit e Bladder Scan 01/27/2024 01/27/2024 N/A Encounters Encounter Location Date Provider Diagnosis [facility], [facility] [address] [address] 01/21/2024 [facility], [facility] [address] [address] 01/27/2024 WALTER CHI Microscopic hematuri a R31.29 ; Gross hematuria R31.0 and Agent orange exposure Z77.098 [facility], [facility] [address] [place] [address] 02/24/2024 JAIR DEVINE Microscopic hematuri a R31.29 ; Gross hematuria R31.0 ; Agent orange exposure Z77.098 and BPH loc w/o ur obs/LUTS N40.0 Assessments Encounter Date Diagnosis (ICD Code) Assessment Notes Treatment Notes Treatment Clinical Notes Section Notes 01/27/2024 Gross hematuria (ICD-10 - R31.0) 01/27/2024 Microscopic hematuria (ICD-10 - R31.29) We discussed the indications and rationale for a hematuria workup including the possibility of malignancy causing hematuria. In terms of the workup specifically, we discussed the need for evaluation of the upper urinary tracts with radiologic imaging and the lower urinary tract with cystoscopy. We will set up the CT scan w/ and w/o contrast and delayed imaging per hematuria protocol. We will also schedule for next available cystoscopy. I've sent him a valium to take 30min prior to cystoscopy. He will have his son drive him. Will request previous records from Dr. Ordaz. 02/24/2024 Microscopic hematuria (ICD-10 - R31.29) 78 [...] -RTC in 6m with UA/PVR/IPSS I, Paula Juan Scribe, am scribing for, and in the presence of, Dr. Devine. I, Dr. Jair Devine, personally performed the services prescribed in this [...] concerns Plan: -RTC in 6m with UA/PVR/IPSS IPaula Scribalber, am scribing for, and in the presence of, Dr. Devine. I, Dr. Jair Devine, personally performed the services prescribed in this [...] -RTC in 6m with UA/PVR/IPSS I, Paula Doelski, Scribe, am scribing for, and in the presence of, Dr. Devine. I, Dr. Jair Devine, personally performed the services prescribed in this documentation, as scribed by Paula Juan, in my presence, and it is both accurate and complete. 01/27/2024 Agent orange exposure (ICD-10 - Z77.098) 02/24/2024 BPH loc w/o ur obs/LUTS (ICD-10 [...] for, and in the presence of, Dr. Devine. I, Dr. Jair Devine, personally performed the services prescribed in this documentation, as scribed by Paula Juan, in my presence, and it is both accurate and complete. Plan Of Treatment Pending Test Test Name Order Date CT Abd & Pelvis W & [place] [id number] 01/27/2024 Blood Urea Nitrogen (BUN) 01/27/2024 Creatinine Serum 01/27/2024 Next Appt Details Provider Name:JAIR Quiroz, 08/24/2024 02:40:00 PM, [address] [place], [address], Insurance Providers Payer Name Payer Address Payer Phone Subscriber Number Group Number Insured Name Patient Relationship to Insured Coverage Start Date Coverage End Date [employer] [address] [place], [place] [id number] Greg Joseph Self - patient is the insured Medical (General) History Medical History History ICD Code depression psa hypertension gerd osteoarthrosis ptsd tachycardia anxiety
--- OUTSIDE RECORDS SUMMARY | 2024-07-24 06:06 | XMS_ITS ---
Author Organization [facility] Address [address] [place] [address] Care Team Providers Care Court Worker Name Role Phone Primitivo Kelly Primary Care Provider Unavailab JAIR Khalil Unavailable [phone] WALTER MIRELES Unavailable [phone] Allergies Allergen (clinical drug ingredient) Drug/Non Drug [...] Glucose - Bilirubin - Ketones - Specific [place] 1.020 Occult Blood - pH 6.0 Urine Protein - Urobilinogen,Semi-Qn - Nitrite, Urine - WBC Esterase - REASON FOR VISIT Gross Hematuria Medications Medication SIG (Take, Route, Frequency, Duration) Notes Start Date End Date Status Lisinopril 5 MG 2 tablets Orally Onc e a day Active Metoprolol Tartrate 50 MG 1 tablet with food Orally Twice a day Active Furosemide 40 MG 1 tablet Orally Once a day Active Lidocaine 5 % 1 application as nee ded Externally Three times a day Active Citalopram Hydrobromide 20 MG 1 tablet Orally Once a day Active Potassium & Magnesium Aspartat 250-250 MG 1 capsule with a meal Orally Once a day Active Pantoprazole Sodium 40 MG 1 tablet 1/2 t o 1 hour before morning meal Orally Once a day Active predniSONE 10 MG 1 tablet Orally Once a day Active diazePAM 5 MG take 1 tablet Orally 30 minute prior to procedure for 1 days 01/27/2024 Active Clopidogrel Bisulfate 75 MG 1 tablet Ora lly Once a day Active Cholecalciferol Acti ve Vital Signs Blood pressure systolic 110 mm Hg 01/27/20 24 Blood pressure diastolic 66 mm Hg 024 Heart Rate 65 /min 01/27/2024 Height 66 in 01/27/2024 Weight 160 lbs 01/27/2024 BMI 25.82 kg/m2 01/27/2024 Height-cm 167.64 cm 01/27/2024 Weight-kg 72.57 kg 01/27/2024 Procedures Procedure Date Ordered Date Performed Result Body Sit e Bladder Scan 01/27/2024 01/27/2024 N/A Encounters Encounter Location Date Provider Diagnosis [facility] [address] [place] [address] 01/27/2024 WALTER MIRELES Microscopic hematuri a R31.29 ; Gross hematuria R31.0 and Agent orange exposure Z77.098 Assessments Encounter Date Diagnosis (ICD Code) Assessment Notes Treatment Notes Treatment Clinical Notes Section Notes 01/27/2024 Microscopic hematuria (ICD-10 - R31.29) We [...] Will request previous records from Dr. Ordaz. 01/27/2024 Gross hematuria (ICD-10 - R31.0) 01/27/2024 Agent orange exposure (ICD-10 - Z77.098) Plan Of Treatment Medication Medication Name Sig Start Date Stop Date Notes diazePAM 5 MG take 1 tablet Orally 30 minute prior to procedure for 1 days 01/27/2024 Treatment Notes Assessment Notes Microscopic hematuria We discussed the indications and rationale for [...] Will request previous records from Dr. Ordaz. Pending Test Test Name Order Date CT Abd & [place] & [place] [id number] 01/27/2024 Blood Urea Nitrogen (BUN) 01/27/2024 Creatinine Serum 01/27/2024 Next Appt Details Follow Up: cysto with CT, Re ason: Provider Name:JAIR JARAMILLO Gabriella, 08/24/2024 02:40:00 PM, [address] [place], [address], Progress Notes * Greg JOSEPH RDOB: [birth year] (78 yo M)Acc No.[id number]:01/27/2024 Progress Notes Patient:?Greg JOSEPH Provider:?Walter Mireles APRN :1945???Age:78 Y???Sex:Male Carlos e:01/27/2024 Address:[facility] [address] [place], [place] [id number] Pcp:Primitivo Kelly Subjective: * Chief Complaints: * ???Gross Hematuria * HPI: ???:?Pt is a 78yoM who has been referred from the [place] for gross hematuria. He had an episode several weeks ago. It was asymptomatic and painless. He denies any difficulty voiding. No dysuria, urgency, frequency. He says that he saw Dr. Ordaz several years ago for hematuria and had cysto that shown a lesion on my bladder but patient says that he did not undergo any type of surgery for it. I do not have records. He is a [place] with Agent [place] exposure. He denies any flank pain, fever, chills. He [facility]. Denies any family h/o malignancy. * ROS:?Please refer to patient intake ROS form. It has been reviewed and is accurate. * Medical History:? * Surgical History:? * Hospitalization/Major Diagno stic Procedure:? * Family History:?Father: dece ased.?Mother: .? * Social History:?former smoker. * Medications:?TakingClopidogr el Bisulfate 75 MG Tablet 1 tablet Orally Once a day Potassium & Magnesium Aspartat 250-250 MG Capsule 1 capsule with a meal Orally Once a day predniSONE 10 MG Tablet 1 tablet Orally Once a day Pantoprazole Sodium 40 MG Tablet Delayed Release 1 tablet 1/2 to 1 hour before morning meal Orally Once a day Metoprolol Tartrate 50 MG Tablet 1 tablet with food Orally Twice a day Lisinopril 5 MG Tablet 2 tablets Orally Once a day Lidocaine 5 % Ointment 1 application as needed Externally Three times a day Furosemide 40 MG Tablet 1 tablet Orally Once a day Citalopram Hydrobromide 20 MG Tablet 1 tablet Orally Once a day Cholecalciferol Medication List reviewed and reconciled with the patientTaking Clopidogrel Bisulfate 75 MG Tablet 1 tablet Orally Once a day Taking Potassium & Magnesium Aspartat 250-250 MG Capsule 1 capsule with a meal Orally Once a day Taking predniSONE 10 MG Tablet 1 tablet Orally Once a day Taking Pantoprazole Sodium 40 MG Tablet Delayed Release 1 tablet 1/2 to 1 hour before morning meal Orally Once a day Taking Metoprolol Tartrate 50 MG Tablet 1 tablet with food Orally Twice a day Taking Lisinopril 5 MG Tablet 2 tablets Orally Once a day Taking Lidocaine 5 % Ointment 1 application as needed Externally Three times a day Taking Furosemide 40 MG Tablet 1 tablet Orally Once a day Taking Citalopram Hydrobromide 20 MG Tablet 1 tablet Orally Once a day Taking Cholecalciferol Medication List reviewed and reconciled with the patient * Allergies:?DemerolPenicillin RosuvastatinSimvastatinno[Allergies Verified] Objective: * Vitals:?BP: 110/66 mm Hg, HR : 65 /min, Wt: 160 lbs, Wt-k.57 kg, Ht: 66 in, Ht-cm: 167.64 cm, BMI: 25.82 Index, Body Surface Area: 1.84. * Examination: ???General Examination: ?General appearance:?alert, well-nourished and in no acute distress.?Head:?normocephalic, atraumatic.?Eyes:?PERRL, EOMI.?Heart:?HR regular, no LE edema.?Chest:?resp even and nonlabored.?Abdomen:?soft, NT, ND.?Male genitourinary:?No CVAT, No SPT, No bladder distention, genital exam deferred..?Musculoskeletal:?normal strength and movement in bilateral upper and lower extremities.?Neurologic:?nonfocal.?Psych:?normal affect / mood?with good judgement and insight.? Assessment: * Assessment: 1.?Gross hematuria - R31.0 ( Primary)???2.?Microscopic hematuria - R31.29???3.?Agent orange exposure - Z77.098??? Plan: * Treatment: ? Value Reference Range ?Urine-Color yellow * ?Appearance clear * ?Glucose - * ?Bilirubin - * ?Ketones - * ?Specific [place] 1.020 * ?Occult Blood - * ?pH 6.0 * ?Urine Protein - * ?Urobilinogen,Semi-Qn - * ?Nitrite, Urine - * ?WBC Esterase - ?Imaging: CT Abd & Pelvis W & [place] contrast [id number]* Nicole Alberto 01/27/2024 03:33:23 PM CDT > Please schedule for 02/24/24, prior to appt here at 3:00 p.m.[id number] Valid 01/21/24 - 07/25/24 * ?Procedure: Bladder Scan (Performed Date - 01/27/2024)* Brian Long 01/27/2024 01: 36:07 PM CDT > 12ml Notes: We discussed the indications and rationale for [...] him. Will request previous records from Dr. Ordaz.?? * Procedure Codes:?59302 URINA LYSIS, AUTO, W/O [id number] US URINE CAPACITY MEASURE * Follow Up:?cysto with CT * Billing Information: * Visit Code:? 98409 Office Visit, New Pt., Level 4. * Procedure Codes:? 06190 URINALYSIS, AUTO, W/O SCOPE. 29292 US URINE CAPACITY MEASURE. * Sign off status: Completed true * Provider:?Walter Mireles APRN Date:? Generated for Cassi higgins/Frantz/Kikesmitting on:?07/24/2024 06:06 AM CDT History and Physical Notes * HPI (History of Present Illness) Category Sub-Category Detail Notes Category Not es Pt is a 78yoM w ho has been referred from the [facility] for gross hematuria. He had an episode several weeks ago. It was asymptomatic and painless. He denies any difficulty voiding. No dysuria, urgency, frequency. He says that he saw Dr. Ordaz several years ago for hematuria and had cysto that shown a lesion on my bladder but patient says that he did not undergo any type of surgery for it. I do not have records. He is a [place] with [place] exposure. He denies any flank pain, fever, chills. He reports [facility]. Denies any family h/o malignancy. Examination Category Sub-Category Detail Notes Category Not es General Examination General appearance: alert, w ell-nourished and in no acute distress Head: normocephalic, atrau matic Eyes: PERRL, EOMI Heart: HR regular, no LE ed ester Chest: resp even and nonlab ored Abdomen: soft, NT, ND Neurologic: nonfocal Musculoskeletal: normal strength and movement in bilateral upper and lower extremities Male genitourinary: No CVAT, No SPT, No bladder distention, genital exam deferred. Psych: normal affect / mood with good judgement and insight
--- OUTSIDE RECORDS SUMMARY | 2024-07-24 06:06 | XMS_ITS ---
Author Organization [facility] Address [address] [place] [address] Care Team Providers Care Double End Production Grinder Name Role Phone Primitivo Kelly Primary Care Provider JAIR Jacobsen [phone] REASON FOR VISIT Gross Hematuria LVM 01/23 Encounters Encounter Location Date Provider Diagnosis [facility] [address] [place] [facility] [place] [address] 01/21/2024 JAIR VELAZQUEZER Plan Of Treatment Next Appt Details Provider Name:JAIR Quiroz, 08/24/2024 02:40:00 PM, [address] [place], [address], Progress Notes * Greg MEJIA RDOB: [birth year] (78 yo M)Acc No.[id number]:01/21/2024 Patient:?Greg MEJIA :1945???Age:78 Y???Sex:Male Address:[address], [place], [address] * true * Date:? Generated for Alexeyi ronaldo/Frantz/eTransmitting on:?07/24/2024 06:06 AM CDT
--- OUTSIDE RECORDS SUMMARY | 2024-07-24 06:06 | XMS_ITS | Encounter Summary ---
Author Organization [facility] Address [address] [place] [address] Care Team Providers Care Construction Controller Name Role Phone Unavailable Primary Care Provider Unavailabl e Encounter Details Date Type Department Care Team (Latest Contact Info) Description 02/06/2000 Outpatient Historical [facility] [place] [address] [facility] [address] [place] [address] Ibrahima Saleh MD [address] [phone] Abdominal pain, unspecified site (Primary Dx) Social History Tobacco Use Types Packs/Day Years Used Date Smoking Tobacco: Never Assessed Sex and Gender Information Value Date Recorded Sex Assigned at Not on file Legal Sex 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
[2024-07-24 07:18] LABS: Partial Thromboplastin Time 64.8 SECONDS (23.9-36.7)
[2024-07-24] MEDS: aspirin 81 mg EC Tablet PO (07:21)
--- NOTE | 2024-07-24 07:32 | PC.NURSE ---
Patient left CSU to aquatic laborer at 0720.
--- NOTE | 2024-07-24 07:36 | P.HPUD_ITS ---
Surgery/Procedure H&P Update DATE OF PROCEDURE: July 24, 2024 DATE H&P PERFORMED: 07/23/24 H&P UPDATE INFORMATION: I have reviewed H&P completed within last 30 days, I have examined patient prior to procedure and No changes to prior documentation PREOP DIAGNOSIS: ASHD PRIMARY INDICATION FOR PROCEDURE: Unstable angina /NSTEMI/previous PCI PLANNED PROCEDURE: Left heart catheterization with left and right coronary angiogram and possible PCI PATIENT REASSESSED PRIOR TO SEDATION, WITH NO CHANGE NOTED: Yes PHYSICAL EXAM: alert, oriented x 3, clear to auscultation bilaterally and regular rate & rhythm AIRWAY EVAL/ANESTHESIA PLAN: normal airway, see other exam findings, ASA III, Mo nitored Anesthesia, Local Anesthesia, Risks, benefits & alternatives of sedation and/or procedure discussed and Patient agrees to continue as planned
--- NOTE | 2024-07-24 07:38 | PM.PN ---
Subjective Subjective: Patient is feeling better. Still has some discomfort in the right t side of the chest rating to the shoulder and the right side of the neck. According to him this is some similar to what he had in the past when he presented with a heart attack No fever, chills or cough Medications: Medication Review Details: Current Medications Acetaminophen (Acetaminophen 325 Mg Tablet) 650 mg PO Q6H PRN PRN Reason: Mild/Mod Pain Or Temp >/= 101 Aspirin (Aspirin 81 Mg Ec Tablet) 81 mg PO DAILY [facility] Last Admin: 07/24/24 07:21 Dose: 81 mg Clopidogrel Bisulfate (Clopidogrel 75 Mg Tablet) 75 mg PO DAILY [facility] Ezetimibe (Ezetimibe 10 Mg Tablet) 10 mg PO DAILY [facility] Heparin Sodium (Porcine) (Heparin 5,000 Unit/Ml Inj 1 Ml) 0 unit IVP PRN PRN; Protocol PRN Reason: Heparin Weight Based Protocol -Subsequent Bolus Heparin Sodium/Sodium Chloride (Heparin Drip) 25,000 unit in 500 mls @ 0 mls/hr IV CONT JOVANNY; Protocol Last Titration: 07/24/24 03:54 Dose: 12.39 unit/kg/hr, 19 mls/hr Lisinopril (Lisinopril 5 Mg Tablet) 5 mg PO BEDTIME [facility] Last Admin: 07/23/24 20:17 Dose: 5 mg Ondansetron HCl (Ondansetron 2 Mg/Ml Sdv 2 Ml) 4 mg IVP Q8H PRN PRN Reason: vomiting, or N/V if npo Pantoprazole Sodium (Pantoprazole Dr 40 Mg Tablet) 40 mg PO QAM [facility] Last Admin: 07/24/24 05:28 Dose: 40 mg Vitals/I&O/Wt Last Vital Signs Temp 97.8 F 07/24/24 04:00 Pulse 82 07/24/24 04:00 Resp 17 07/24/24 04:00 BP 117/63 07/24/24 04:00 Pulse Ox 98 07/24/24 04:00 O2 Del Method Room Air 07/24/24 04:00 07/23/24 07/24/24 07/24/24 22:59 06:59 14:59 Intake Total 360 / 360 141.167 / 501.167 Output Total 100 / 100 Balance 260 / 260 141.167 / 401.167 Weight last 48 hrs Weight 168 lb 1.6 oz Weight 169 lb Weight 171 lb Physical Exam Narrative: GENERAL: The patient is alert and oriented times three. Not in any acute distress. HEENT: No significant pallor, icterus or lymphadenopathy.Oral cavity: There are no mucous membrane lesions. NECK: Trachea appears to be central. No masses noted. No JVD or thyromegaly appreciated. RESPIRATORY: Chest is symmetrical. No intercostals muscle retraction or any accessory muscle activation. There is no chest wall tenderness. Breath sounds are heard bilaterally. No rales or rhonchi heard. No evidence of any consolidation. BREASTS: Deferred. HEART: The heart sounds are normal. No S3 or S4. No significant murmurs. No pericardial rub ABDOMEN: No vessel pulsations or distention. No tenderness. No organomegaly appreciated. Bowel sounds are normally heard. : Deferred. RECTAL: Deferred. LYMPHATIC: No lymphadenopathy noted in the neck. EXTREMITIES: No edema or cyanosis. No clubbing. MUSCULOSKELETAL: No acute joint deformities or swelling SKIN: There are no significant rashes or ecchymosis NEUROPSYCHIATRIC: The patient is alert and oriented x3. Appears to be in a good mood. No tremors or rigidity noted. Data 07/24/24 00:31 07/24/24 00:31 Other Labs: Laboratory Last Values WBC 8.85 10^3/uL (3.29-11.43) 07/24/24 00: RBC 4.67 10^6/uL (3.85-5.65) 07/24/24 00: Hgb 14.20 g/dL (11.27-16.99) 07/24/24 00: Hct 42.1 % (37-53) 07/24/24 00: MCV 90.1 fl (82-101) 07/24/24 00: MCH 30.4 pg (27-33) 07/24/24 00: MCHC 33.7 g/dL (30-55) 07/24/24 00: RDW 12.9 % (12.1-15.1) 07/24/24 00: Plt Count 242 10^3/cmm (157-399) 07/24/24 00: MPV 9.7 fL (7.4-10.4) 07/24/24 00: Neut % (Auto) 62.9 % 07/24/24 00:31 Lymph % (Auto) 22.3 % 07/24/24 00:31 Stevens % (Auto) 7.5 % 07/24/24 00:31 Eos % (Auto) 6.3 % 07/24/24 00:31 Baso % (Auto) 0.8 % 07/24/24 00:31 Neut # (Auto) 5.57 10^3/uL (1.8-7.7) 07/24/24 00: Lymph # (Auto) 2.0 10^3/uL (0.8-4.8) 07/24/24 00:31 Stevens # (Auto) 0.7 10^3/uL (0.2-0.9) 07/24/24 00:31 Eos # (Auto) 0.6 10^3/uL (0.0-0.8) 07/24/24 00:31 Baso # (Auto) 0.1 10^3/uL (0.0-0.1) 07/24/24 00: Nucleated RBC % (auto) 0 % 07/24/24 00: Nucleated RBCs # 0.0 /100WBC 07/24/24 00:31 APTT 64.8 SECONDS (23.9-36.7) H D 07/24/24 06:44 Sodium 142 mmol/L (136-145) 07/24/24 00:31 Potassium 3.7 mmol/L (3.5-5.1) 07/24/24 00:31 Chloride 105 mmol/L (98-107) 07/24/24 00: Carbon Dioxide 25 mmol/L (22-29) 07/24/24 00:31 Anion Gap 15.7 (5-19) 07/24/24 00:31 BUN 14 mg/dL (8-23) 07/24/24 00:31 Creatinine 1.1 mg/dL (0.7-1.2) 07/24/24 00:31 GFR Calculation Not Reportable 07/24/24 00:31 Glucose 102 mg/dL (65-115) 07/24/24 00:31 Estimat Average Glucose 117 07/23/24 11:55 Hemoglobin A1c 5.7 % (4.0-6.0) 07/23/24 11:55 Calculated Osmolality 295 mOsm/kg (285-295) 07/24/24 00:31 Calcium 8.9 mg/dL (8.5-10.5) 07/24/24 00:31 Magnesium 2.2 mg/dL (1.7-2.3) 07/24/24 00:31 Total Bilirubin 0.3 mg/dL (0.15-1.2) 07/24/24 00:31 AST 15 U/L (0-40) 07/24/24 00:31 ALT 10 U/L (0-41) 07/24/24 00:31 Alkaline Phosphatase 70 U/L (40-130) 07/24/24 00:31 Troponin T Baseline 66 ng/L (0-15) H 07/23/24 11:55 Troponin T 120 Minute 73.08 ng/L (0-15) H 07/23/24 13:30 Delta Troponin T 7.08 ABS# (0-10) 07/23/24 13:30 Troponin T Hi Sens 6Hr 83.73 ng/L (0-15) H 07/23/24 17:25 Troponin T Hi Sens 6Hr Delta 17.73 ng/L (0-12) H* 07/23/24 17:25 NT-Pro-B Natriuret Pep 240 pg/mL (0-450) 07/23/24 11:55 Total Protein 6.7 g/dL (6.6-8.7) 07/24/24 00:31 Albumin 4.0 g/dL (3.5-5.2) 07/24/24 00:31 Globulin 2.7 g/dL (1.3-4.6) 07/24/24 00:31 Lipase 50 U/L (13-60) 07/23/24 11:55 Procalcitonin 0.05 ng/mL (0-0.5) 07/23/24 11:55 Urine Opiates Screen Negative ng/mL (Negative) 07/23/24 15:50 Ur Barbiturates Screen Negative ng/mL (Negative) 07/23/24 15:50 Ur Phencyclidine Scrn Negative ng/mL (Negative) 07/23/24 15:50 Ur Amphetamines Screen Negative ng/mL (Negative) 07/23/24 15:50 U Benzodiazepines Scrn Negative ng/mL (Negative) 07/23/24 15:50 Urine Cocaine Screen Negative ng/mL (Negative) 07/23/24 15:50 U Marijuana (THC) Screen Positive ng/mL (Negative) H 07/23/24 15:50 Other data: Echocardiogram from yesterday Mild diffuse hypokinesia of the lateral wall and the basal inferior wall segments. Ejection fraction around 50%, visualmild left ventricular hypertrophy. Grade I/IV diastolic dysfunction (abnormal relaxation filling pattern), normal to mildly elevated filling pressures. Mild mitral valve regurgitation. Trace tricuspid valve regurgitation. Estimated pulmonary artery peak systolic pressure 40 mmHg Thickened aortic valve. There are no intracardiac masses. No pericardial effusion Compared to the study from 04/02/2016, the wall motion abnormality appears to be new A&P Assessment and plan (1) Atherosclerotic heart disease of [place] coronary artery with unstable angina pectoris: Patient symptoms are suggestive of an unstable angina. Hemodynamically seems to be stable. May continue on the aspirin, Plavix, IV heparin and topical nitrates. Patient apparently had some sinus pauses on telemetry. For that reason, the beta-hai is on hold. The echocardiogram findings -as mentioned above. Qualifiers: [place] vs. transplanted heart: [place] heart Qualified Code(s): I25.110 - Atherosclerotic heart disease of [place] coronary artery with unstable angina pectoris (2) Elevated troponin: Patient's clinical features of a history of a non-ST relation myocardial infarction. He has a delta of around 18 at 6 hours. Baseline troponin T was around 70. May continue on the current medications. (3) Hypercholesteremia: Patient apparently has a history of? Intolerance to simvastatin. Will start him on Zetia 10 mg p.o. daily. Need to consider Repatha, if he is already tried the other statins (4) Benign essential hypertension with target blood pressure below 140/90: Continue on the current medications. (5) Marijuana abuse, continuous: Strongly advised to quit. Cardiovascular medications were discussed. (6) Sinus node dysfunction: Patient apparently was found to have a pause of more than 3 seconds on the monitor. I do not have any documentation of this at this time. Most likely he may have sinus node dysfunction. Will hold off on the beta-hai for the time being. Plan Discussed with the patient about further management options. In order to further evaluate his coronary status, a cardiac catheterization would be appropriate. Possible risks, benefits and alternatives were discussed in detail with the patient. The risk of bleeding, hematoma, vascular injury, myocardial infarction, myocardial perforation, malignant cardiac arrhythmias ,CVA, renal failure and other concomitant complications were explained in detail. Patient understood this well and consented to proceed with the angiogram. Based on angiogram findings, further recommendations will be made. PDMP PDMP Reviewed: Not Reviewed Attestations Medical Necessity Statement*: Patient requires continued hospital stay for close monitoring and further management Coding Level of Care Code 93171 Diagnoses Atherosclerosis of [place] coronary artery of [place] heart with unstable angina pectoris I25.110 [place] vs. transplanted heart: [place] heart Elevated troponin R79.89 Hypercholesteremia E78.00 Benign essential hypertension with target blood pressure below 140/90 I10 Marijuana abuse, continuous F12.10 Sinus node dysfunction I49.5
[2024-07-24] MEDS: ezetimibe 10 mg Tablet PO (08:55)
[2024-07-24] MEDS: sodium chloride 0.9% 1,000 ML 100 ML IV (09:02)
--- NOTE | 2024-07-24 10:53 | PC.CHAP ---
Pastoral Care Encounter/Spiritual Assessment Type of Contact [] Declined lead producer visit [] Patient/Family/Request visit [] Outpatient visit [] Follow-up visit [] Physician referral [] Code/Alert [x] Routine visit [] Staff referral [] Actively dying [] Patient sleeping [] Family support [] [] Out of room [] Palliative care [] [] Receiving care in room [] Pre-surgical visit [] Trauma [] Long length of stay [] ICU visit [] Other: Relational/Emotional Strength [] Patient feels connected with others/family/visitors/staff [] Distress [] Loneliness/isolation [] Abandonment Spirituality of Patient [x] Person of Daniela [] Attends Yazdanism of their Daniela [x] Believes in Prayer [] Reads Bible or Gnosticism materials [] There are Spiritual issues to be addressed Payroll Accounting Manager Interventions [x] Prayer [x] Active listening [] Non-anxious presence [] Spiritual/emotional support [] Crisis/trauma care [] Spiritual counseling [] Bereavement support [] Provided bereavement packet [x] Provided Bible/devotional materials [] Provided toy/stuffed animal, coloring book to patient or family member [] Provided Communion [] Anointing/[place] [] Salvation [x] Completed spiritual assessment [] Other: Impact on Illness or Injury [] Angry [] Fearful [] Anxious [] Often cries [] Exhaustion [] Unable to work [] Unable to attend congregation [] Unable to walk/stand [] Unable to read [] Unable to drive [] Unable to eat/drink [] Unable to sleep [] Unable to be with family [] Patient intubated [] Other: Summary Time spent with patient 5 min
--- NOTE | 2024-07-24 13:00 | PM.PN ---
Subjective Subjective: Status post angiogram this morning with stent placement into the proximal RCA. Medications: Medication Review Details: Current Medications Acetaminophen (Acetaminophen 325 Mg Tablet) 650 mg PO Q6H PRN PRN Reason: Mild/Mod Pain Or Temp >/= 101 Aspirin (Aspirin 81 Mg Ec Tablet) 81 mg PO DAILY [facility] Last Admin: 07/24/24 07:21 Dose: 81 mg Clopidogrel Bisulfate (Clopidogrel 75 Mg Tablet) 75 mg PO DAILY [facility] Ezetimibe (Ezetimibe 10 Mg Tablet) 10 mg PO DAILY [facility] Heparin Sodium (Porcine) (Heparin 5,000 Unit/Ml Inj 1 Ml) 0 unit IVP PRN PRN; Protocol PRN Reason: Heparin Weight Based Protocol -Subsequent Bolus Heparin Sodium/Sodium Chloride (Heparin Drip) 25,000 unit in 500 mls @ 0 mls/hr IV CONT JOVANNY; Protocol Last Titration: 07/24/24 03:54 Dose: 12.39 unit/kg/hr, 19 mls/hr Lisinopril (Lisinopril 5 Mg Tablet) 5 mg PO BEDTIME [facility] Last Admin: 07/23/24 20:17 Dose: 5 mg Ondansetron HCl (Ondansetron 2 Mg/Ml Sdv 2 Ml) 4 mg IVP Q8H PRN PRN Reason: vomiting, or N/V if npo Pantoprazole Sodium (Pantoprazole Dr 40 Mg Tablet) 40 mg PO QAM [facility] Last Admin: 07/24/24 05:28 Dose: 40 mg Vitals/I&O/Wt Last Vital Signs Temp 97.5 F L 07/24/24 16:00 Pulse 88 07/24/24 16:00 Resp 12 07/24/24 16:00 BP 113/74 07/24/24 16:00 Pulse Ox 97 07/24/24 16:00 O2 Del Method Room Air 07/24/24 16:00 07/24/24 07/24/24 07/24/24 06:59 14:59 22:59 Intake Total 141.167 / 801.157 5717.15 / 1673.15 Balance 141.167 / 176.904 2719.15 / 1673.15 Weight last 48 hrs Weight 76.249 kg Weight 76.657 kg Weight 77.564 kg Physical Exam Narrative: General: No acute distress, AO x3 HEENT: PERRLA, pupils bilaterally equal and reactive, pallors not present Chest: Normal vesicular breath sounds, no added sounds, equal good air entry bilaterally CVS: S1-S2 regular, no murmurs, no tachycardia, no gallops, no rubs Abdomen: Soft, nontender, no organomegaly, bowel sounds present Neuro: No focal deficits, no facial deformity, AO x3, power 5/5 in all limbs Data 07/24/24 00:31 07/24/24 00:31 A&P Assessment and plan (1) Chest pain: Qualifiers: Chest pain type: other chest pain Qualified Code(s): R07.89 - Other chest pain (2) Benign essential hypertension with target blood pressure below 140/90: (3) Coronary artery disease: (4) Elevated troponin: (5) Stable angina: (6) Atherosclerotic heart disease of [place] coronary artery with other forms of angina pectoris: Plan #Chest pain, most likely consistent with stable angina. #Chronic heart failure, systolic versus diastolic unspecified. #Hypertension #CAD status post PCI in the past. #Hyperlipidemia ? Continue aspirin Plavix atorvastatin ? Await 2-hour 6-hour troponin at this time - Serial EKGs ? Check echo to rule out wall motion abnormalities ? Continue lisinopril, metoprolol tartrate, Protonix ? Hold Lasix and potassium at this time. Patient appears to be euvolemic ? If chest pain recurs will consider Nitropaste. ? Depending upon troponins may consider anticoagulation however at this time we will plan for stress testing in AM. ? N.p.o. at midnight. ? Will consult cardiology. Await further recommendations. ? Continue to monitor on telemetry. Patient may require event monitor at discharge to rule out underlying heart block. Patient did have a 3 to 4-second sinus pause on telemetry. Full code DVT prophylaxis: Heparin SQ twice daily July 24, 2024 Patient's status post angiogram this morning with placement of stent into the proximal RCA. Denies any active complaints at this time. No chest pain. Will monitor patient in the next 24 hours. If remains stable may be able to be discharged tomorrow morning. PDMP PDMP Reviewed: Not Reviewed Attestations Medical Necessity Statement*: Status post angiogram this morning Coding Level of Care Code Acute Code for Chg Fwd Diagnoses Other chest pain R07.89 Chest pain type: other chest pain Benign essential hypertension with target blood pressure below 140/90 I10 Coronary artery disease I25.10 Elevated troponin R79.89 Stable angina I20.89 Atherosclerotic heart disease of [place] coronary artery with other forms of angina pectoris I25.118
--- NOTE | 2024-07-24 13:23 | PC.NURSE ---
Air is slowly removed from patient's right radial TR-band that was placed in dental laboratory worker. Air is removed slowly 2ml's at a time until empty. TR-band is removed and a dressing of 2 x 2 and tegaderm is placed. Patient is reeducated that he is to not use his right wrist/hand for 24 hours. Patient states understanding. Patient tolerated well.
--- NOTE | 2024-07-24 15:30 | XACV_ITS ---
Exam Room: [facility] Ht: 168 cm Wt: 76 kg BSA: 1.90 m2 Gender: Male : 1945 Any Known Allergies: Penicillins Exam Priority: Routine Procedure(s): Procedure Description: Diagnostic procedure Procedure Description: PCI procedure Procedure Description: Left Heart Catheterization Procedure Description: Left ventriculography Procedure Description: Drug Eluting Coronary Stent Procedure Description: Miscellaneous Procedure Description: ACT Procedure Description: Coronary Angiography Jj VASQUEZ; Diagnostic Cath Status: Urgent Diagnostic Findings * The left main is a medium caliber vessel with minimal intimal abnormalities. * The left eyelid descending artery is a medium caliber vessel which appears to wraparound the LV apex minimally. Paroxysmal atrial tachycardia mid and distal LAD was found to have mild diffuse intimal irregularities. No significant stenotic lesions were noted. The first diagonal branch also was found to have mild diffuse disease in the proximal and mid segment. No significant the stenotic lesions. * The left circumflex artery is a medium caliber vessel which was found to have mild diffuse intimal regularities with no significant stenotic lesions. * There is a small caliber intermedius vessel, appears to be high diagonal with mild diffuse irregularities. * The right coronary artery is a medium caliber dominant vessel which was found to be subtotally occluded proximally. The artery was found to have a long stented segment starting from the proximal to the mid segment. The occlusion appears to be in-stent. No significant lesions were noted in the distal vessel. PCI Status: Urgent PCI Indication: NSTE - ACS Interventional Findings * Successful PCI to Prox RCA for severe ISR. Lesion was prepared with 3.0 x 12 mm MDT NC followed by deployment of TY MDT 3.5 x 22 mm stent posted at high MALIK of 14 mm. Stent was then post-dilated with serial dilatation of NC Quantum 3.75 x 15 at 18 MALIK in its entire length to ensure proper approximation. Excellent angiographic result with LIZETH-3 flow was achieved. Conclusions 1. Successful PCI to Prox RCA for severe ISR. Lesion was prepared with 3.0 x 12 mm MDT NC followed by deployment of TY MDT 3.5 x 22 mm stent posted at high MALIK of 14 mm. Stent was then post-dilated with serial dilatation of NC Quantum 3.75 x 15 at 18 MALIK in its entire length to ensure proper approximation. Excellent angiographic result with LIZETH-3 flow was achieved. 2. 78-year-old white male with a history of atherosclerotic heart disease, presented with the symptoms of unstable angina/non-ST elevation myocardial infarction. For further management of his condition, a cardiac catheterization was recommended. Patient underwent left heart catheterization with left and right coronary angiogram and LV angiogram today. The findings are as follows. 3. Mild diffuse intimal irregularities in the left main, left and descending artery and circumflex artery. Subtotal in-stent occlusion of the right coronary artery, proximally. LV ejection fraction of 50%.Mild hypokinesis of the LV apex. LVEDP of 17 mmHg.. 4. I reviewed and discussed the cardiac catheterization data with Dr. Talley. It was thought to be appropriate to consider PCI of the RCA lesion. Dr. Talley took over further management this patient at this point. Recommendations * 1-Return to inpatient for close monitoring and routine cath care 2-Risk factor modification for secondary prevention 3-Statin and aspirin 81 mg life-long, if tolerated 4-Patient was pre-loaded with 600 mg of Plavix, continue Plavix 75mg p.o. daily for at least one year. We will assess at the end of one year again to continue if further or not 5-Continue optimal medical management 6-Follow up with in four weeks and your primary care in 10 days. Diagnostic RX Recommendation: PCI w/o planned CABG Ventriculography Ejection Fraction: 50.0 % LV EDP: 17 mmHg Left Ventriculography Findings: * The LV gram was performed in the PIZARRO projection. There was mild hypokinesia of the basal inferior wall segment and the LV apex. LV cavity was of normal size. No significant mitral valve prolapse or mitral regurgitation. No filling defects were noted. Pressures Phase:Rest AO : / ( 0 ) @ 8:44:00 AM / ( 0 ) @ 8:52:00 AM 110 / 63 ( 85 ) @ 8:52:00 AM 119 / 60 ( 86 ) @ 9:02:00 AM 119 / 61 ( 86 ) @ 9:02:00 AM 90 / 62 ( 74 ) @ 9:19:00 AM LV : 123 / -5 / 17 @ 9:01:00 AM 112 / -3 / 16 @ 9:02:00 AM 113 / -4 / 15 @ 9:02:00 AM Valves Phase:DefaultPhase AV : 0.0 @ 8:37:26 AM AV Mean Gradient: 0.0 @ 8:37:26 AM Clinical Evaluation EBL: 5mL-10mL Procedural Details Procedure Consent Obtained. Current Diagnosis : NSTEMI. Admit Source: In Patient. Pre-Procedure Time Out. Identified patient by full name and date of as verbalized by the patient/guarantor. Does the consent match the physician's order: Yes. Accurate & Complete Informed Consent: Yes. Inpatient/Outpatient History & Physical on Chart: Yes. If H&P is completed, is and addenduem needed: No; If yes, is the addendum complete: N/A. Visualize and Verify Site with Patient/Guarantor: N/A. Relevant Radiology Images available: N/A. The risks, benefits, and alternatives of sedation and/or procedure were discussed by physician. The patient agrees to continue. Procedure started. [facility] Clinical Fraility Score: 3: Managing Well. 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 Chest Pain Symptom Assessment: Typical Angina Symptoms. Cardiovascular Instability: No. Correct patient, site and procedure confirmed by cath team. Current diagnosis: NSTEMI. PERRLA. 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 Lungs clear x 5 lobes. IV Site on Arrival: 18 gauge in the left wrist. IV Fluids: 0.9% NaCl at KVO. 0 mL infused prior to labor training manager. Pre Procedural Pulses: bilateral posterior tibial was Doppled. Pre Procedural Pulses: bilateral dorsalis pedis was Doppled. Pre Procedural Pulses: bilateral radial was 3+. Oxygen started at 3liters/min via nasal canula. right groin was prepped with chloroprep then draped in the usual sterile fashion. right radial was prepped with chloroprep then draped in the usual sterile fashion. Physician notified. Baseline sample Acquired. HR: 0 BPM. Family updated by MD prior to the start of the procedure. Physician arrived. Physician scrubbed in. Immediate Pre-Procedure Time Out. Correct Patient: Yes; Correct Procedure: Yes; Correct Site: Yes; Correct Patient Position: Yes; Correct Supplies: Yes; Dried Flammable Prep: Yes; Blood Products Available: N/A;. Lidocaine 1% infiltrated to the right radial. ACT drawn. Results 175 seconds. Therapeutic limits - pre-heparin administration 90-150 seconds and monitoring heparin during a vascular procedure >250 seconds. Heparin on hold at this point per MD. A 5 niuean Hao catheter in over wire. Multiple views taken of left coronary artery. Catheter redirected to the RCA. Unable to cannulate the RCA. Catheter removed over the exchange wire. A 5 niuean JR4 catheter in over wire. Multiple views taken of right coronary artery. Dr Talley here to review films. Catheter removed over the exchange wire. A 5 niuean Angled Pig catheter in over wire. EDP Sample taken: LV 123/-6,17; HR: 83 BPM; SpO2: 96%. LV gram performed in PIZARRO @ 10 mL/second for a total of 30 mL. Patient EF: Normal. EDP Sample taken: LV 112/-4,16; HR: 83 BPM; SpO2: 96%. Pullback taken: LV 113/-5,15; AO 119/60(86); Mean: 0mmHg, Peak to Peak: 0mmHg, SEP: 6sec/min; HR: 83 BPM; SpO2: 97%. Catheter removed over the wire. Physician scrubbed out. Dr Talley Scrubbed in. ACT drawn. Results 220 seconds. Therapeutic limits - pre-heparin administration 90-150 seconds and monitoring heparin during a vascular procedure >250 seconds. Attempted to update son by Dr Gardner. There was no answer on his phone. 6 niuean JR 4 guide catheter was inserted over the wire. Guide seated in the RCA. Runthrough guidewire was advanced through the guide catheter to lesion in the prox RCA. Guidewire advanced across lesion. Inflation number : 1 A MDT NC EUPHORA RX [id number] BALLOON was prepped and advanced across the Prox RCA , then inflated to 14 MALIK for 0:09 seconds. Inflation number: 2 The MDT NC EUPHORA RX [id number] BALLOON was reinflated across the Prox RCA, to 12 MALIK for 0:11 seconds. Inflation number: 3 The MDT NC EUPHORA RX [id number] BALLOON was reinflated across the Prox RCA, to 12 MALIK for 0:07 seconds. Inflation number: 4 The MDT NC EUPHORA RX [id number] BALLOON was reinflated across the Prox RCA, to 12 MALIK for 0:09 seconds. Inflation number: 5 The MDT NC EUPHORA RX [id number] BALLOON was reinflated across the Prox RCA, to 16 MALIK for 0:17 seconds. Balloon out. Results checked. Results checked. Inflation Number : 6 A MDT R TY 3.5X22 JUAN -Lot Number# [id number] 12-31-26 was prepped and advanced across the Prox RCA. The stent was deployed at 12 MALIK for 0:16 seconds. Stent balloon out over wire. Inflation number : 7 A MDT NC EUPHORA RX [id number] BALLOON was prepped and advanced across the Prox RCA , then inflated to 14 MALIK for 0:22 seconds. Inflation number: 8 The MDT NC EUPHORA RX [id number] BALLOON was reinflated across the Prox RCA, to 18 MALIK for 0:27 seconds. Results checked. Balloon out. Results checked. ACT drawn. Results 272 seconds. Therapeutic limits - pre-heparin administration 90-150 seconds and monitoring heparin during a vascular procedure >250 seconds. [id number]. Guide catheter removed over the wire. Physician review of films. Physician scrubbed out. A TR Band was successful obtaining hemostatsis at the Right Radial artery insertion site. TR band placed. Hemostasis obtained. Post Procedure: Pulses reassessed and unchanged. Post-op diagnosis: Severe ISR of the proximal RCA stent; S/P JUAN to Proximal RCA lesion. PERRLA. 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 No VTE prophylaxis required. Medication's Wasted: Lidocaine 1% = 18 ml , Versed = 1 mg , Nitro = 49.8mg , Heparin = 1000 units , Fentanyl = 25 mcg. Total IV fluids: 430 mL. Fluoro: 9:08. Contrast type used: Omnipaque 300 mgI/mL, 500 mL bottle. Complications: NONE. Estimated blood loss: 5mL-10mL. Responsiveness - Normal response to verbal stimuli; alert and oriented, PERRLA. Airway - Unaffected, no intervention required; spontaneous ventilation. Circulation: W/N/L, pulses unchanged. Nausea/Vomiting: No. Procedure completed. Patient transferred by bed to 1st floor. Vital chart was stopped. Access Site Site: Right Radial artery Sheath Size: 6 Fr Hemostasis Method: TR Band Hemostasis Success: Successful Procedure Medications Start: 7:42 AM Stop: 7:42 AM Medication: Versed 1 mg and Fentanyl 25 mcg Amount: 1 Route: I.V. Start: 7:49 AM Stop: 7:49 AM Medication: Versed Amount: 1 mg Route: I.V. Start: 7:49 AM Stop: 7:49 AM Medication: 0.9% Saline Amount: 250 ml Route: I.V. bolus Start: 7:54 AM Stop: 7:54 AM Medication: Heparin Amount: 2000 units Route: I.V. Start: 8:04 AM Stop: 8:04 AM Medication: Fentanyl Amount: 25 mcg Route: I.V. Start: 8:08 AM Stop: 8:08 AM Medication: Heparin Amount: 3000 units Route: I.V. Start: 8:18 AM Stop: 8:18 AM Medication: Nitrogylcerin Amount: 200 mcg Route: I.C. Start: 8:21 AM Stop: 8:21 AM Medication: 0.9% Saline Amount: 250 ml Route: I.V. bolus Start: 8:21 AM Stop: 8:21 AM Medication: Versed Amount: 1 mg Route: I.V. Start: 8:33 AM Stop: 8:33 AM Medication: Plavix Amount: 300 mg Route: P.O. I, the attending physician, have reviewed and verified all procedure medications. Yes, all medications given per verbal order History/Risk Factors Hypertension: Yes Dyslipidemia: Yes Peripheral Arterial Disease (PAD): No Myocardial Infarction (PA): Yes Obesity: No Renal Disease: No Tobacco Use: Former Prior Interventions PCI: Yes CABG: No Valve Surgery: No Date of PCI: 03/08/2016 Report Signatures Diagnostic Workflow Finalized by Dr Clyde Gardner MD [facility] on 07/24/2024 11:54 AM Interventional Workflow Finalized by Ortiz Talley MD on 07/24/2024 08:59 AM
[2024-07-24] MEDS: nitroglycerin 0.4 mg sublingual Tablet SUBLINGUAL (15:40)
--- NOTE | 2024-07-24 15:42 | ECG_ITS ---
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 Measurements Intervals [place] Rate: 76 P: 39 GA: 155 QRS: 20 QRSD: 88 T: 14 QT: 365 QTc: 413 Interpretive Statements SINUS RHYTHM NONSPECIFIC T-WAVE ABNORMALITY INTERPRETATION BASED ON A DEFAULT AGE OF 40 YEARS Compared to ECG 07/23/2024 17:49:58 No significant changes Electronically Signed On 07-24-2024 21:30:11 CDT by Clyde Gardner M.D. [email or web address] [id number]
--- NOTE | 2024-07-24 16:02 | PC.NURSE ---
Addendum entered by Amelia Chao RN 07/24/24 17:54: Patient has chest pressure rating of 0/10 now. Addendum entered by Amelia Chao RN 07/24/24 16:29: Dr Gardner came to bedside to follow up. No new orders at this time. Addendum entered by Amelia Chao RN 07/24/24 16:24: JEFFREY Seay followed up with patient at bedside. No new orders were given at this time. Original Note: Dr Hebert, Dr Gardner, and Dr Talley have been updated that patient is complaining of chest pressure, feels like when he came into the ED. Dr Talley ordered morphine 2 mg once IVP and lasix 40 mg once IVP. He is going to have Geena LICENSED PESTICIDE APPLICATOR go to bedside and assess him also.
[2024-07-24] MEDS: morphine 4 mg/mL SDV 1 mL 2 MG IVP (16:08)
[2024-07-24] MEDS: FUROsemide 10 mg/mL SDV 4mL 40 MG IVP (16:08)
--- NOTE | 2024-07-24 16:37 | P.PN_ITS ---
<Statement entered by Ortiz Talley MD - 07/24/24 20:42> Patient was evaluated and cared for in conjunction with an advanced practice practitioner. I personally examined the patient and reviewed the chart and all pertinent data including imaging, telemetry, and laboratory results. I discussed the patient in detail with the advanced practice practitioner. Please see their note for complete H&P testing result and agreed upon plan of care for the patient. Examined the patient by myself independently and with our cardiology nurse practitioner, currently patient chest pain has improved after giving Lasix and nitroglycerin GENERAL: Patient is alert, awake and oriented x3. HEART: Regular S1 and S2. No murmur, rub or gallop. LUNGS: Clear to auscultate bilaterally. CENTRAL NERVOUS SYSTEM: Grossly nonfocal. EXTREMITIES: Lower extremities with out edema bilaterally. Assessment and plan Non-STEMI History of coronary artery Hypertension Chest pain most likely was mostly secondary to high left ventricular end- diastolic pressure post cath. Patient had drug-eluting stent placed in the proximal RCA for severe in-stent restenosis with excellent angiographic result without any complication however distal RCA was noted to have coronary spasm which were relieved with nitroglycerin during the left heart cath. Twelve-lead EKG was not suggestive of ischemia IV Lasix was given patient felt much better after urination Continue to monitor Continue aspirin statin beta-hai and Plavix Subjective 2 Subjective: Patient was said to have chest pain starting 40 minutes ago. I went to assess. He had stent to the distal RCA today. I evaluated the patient. He stated about 40 minutes ago, he developed some mild chest discomfort at the center of his chest with increased shortness of breath. He was given nitro at that time, which did not help. He states his shortness of breath has improved, but still present. He states it is not severe. I evaluated patient and lungs are slightly congested, but overall clear. EKG was done that showed no acute ST or T wave abnormalities. BP is stable at 113/74. HR 88 sinus rhythm. He was getting morphine 2 mg and lasix 40 mg IV at the time of my visit. He states that he has been getting up to go to the bathroom, and it did not make the chest discomfort worse. Vitals/I&O/Wt Last Vital Signs Temp 97.5 F L 07/24/24 16:00 Pulse 88 07/24/24 16:00 Resp 12 07/24/24 16:00 BP 113/74 07/24/24 16:00 Pulse Ox 97 07/24/24 16:00 O2 Del Method Room Air 07/24/24 16:00 07/24/24 07/24/24 07/24/24 06:59 14:59 22:59 Intake Total 141.167 / 492.684 2463.15 / 1673.15 Balance 141.167 / 819.396 1975.15 / 1673.15 Weight last 48 hrs Weight 168 lb 1.6 oz Weight 169 lb Weight 171 lb Physical Exam 2 Narrative: General: No apparent distress, healthy appearing, well nourished Muskuloskeletal: Full ROM Lymphatic: no lymphedema noted Respiratory: Normal respiratory effort, slightly congested lower lobes but overall clear throughout all lung scott, no use of accessory muscles Cardio: No JVD, regular rate, regular rhythm, S1 S2 normal, no murmurs Extremities: Full ROM, normal, normal capillary refill, no cyanosis Neuro: Alert and oriented x4, no focal motor deficits Psych: Affect normal, denies suicidal ideation, mental status grossly normal Skin: right radial cath site clean w/o evidence of bleeding Data 07/24/24 00:31 07/24/24 00:31 A&P Assessment and plan (1) Atherosclerotic heart disease of [place] coronary artery with unstable angina pectoris: Qualifiers: [place] vs. transplanted heart: [place] heart Qualified Code(s): I25.110 - Atherosclerotic heart disease of [place] coronary artery with unstable angina pectoris (2) Elevated troponin: (3) Hypercholesteremia: (4) Benign essential hypertension with target blood pressure below 140/90: (5) Marijuana abuse, continuous: (6) Sinus node dysfunction: Plan At this time, patient appears stable. Discomfort is mild without EKG changes. May be related to reperfusion or coronary spasm. This is a distal lesion, and patient did have intracoronary nitro given during procedure. He does have some shortness of breath with this. Morphine was given as well as lasix. Dr. Talley will reassess after clinic patient's response. I educated him and nursing staff to let us know if this worsens or does not subside immediately. Will add isosorbide for possible spasm as well. PDMP PDMP Reviewed: Not Reviewed Attestations 2 Medical Necessity Statement*: Deferred to primary Coding Level of Care Code Acute Code for Chg Fwd Diagnoses Atherosclerosis of [place] coronary artery of [place] heart with unstable angina pectoris I25.110 [place] vs. transplanted heart: [place] heart Elevated troponin R79.89 Hypercholesteremia E78.00 Benign essential hypertension with target blood pressure below 140/90 I10 Marijuana abuse, continuous F12.10 Sinus node dysfunction I49.5
[2024-07-24] MEDS: lisinopril 5 mg Tablet PO (20:04)
[2024-07-25] VITALS (29 sets, daily range): BP systolic 85–131; BP diastolic 50–79; PULSE 74–119; RESP 11–22; TEMP 36.4–36.8; O2SAT 93–97
[2024-07-25 04:46] LABS: Basophils # 0.1 10^3/uL (0.0-0.1); Basophils % 0.6 %; Eosinophils # 0.4 10^3/uL (0.0-0.8); Eosinophils % 4.3 %; Hematocrit 41.7 % (37-53); Lymphocytes # 0.9 10^3/uL (0.8-4.8); Lymphocytes % 10.6 %; Mean Corpuscular HGB Conc 33.3 g/dL (30-55); Mean Corpuscular Hemoglobin 30.7 pg (27-33); Mean Corpuscular Volume 92.1 fl (82-101); Mean Platelet Volume 9.2 fL (7.4-10.4); Monocytes # 0.7 10^3/uL (0.2-0.9); Monocytes % 7.8 %; Neutrophils # 6.63 10^3/uL (1.8-7.7); Neutrophils % 76.4 %; Nucleated Red Blood Cells % 0 %; Platelet Count 219 10^3/cmm (157-399); Red Blood Count 4.53 10^6/uL (3.85-5.65); Red Cell Distribution Width 12.8 % (12.1-15.1); White Blood Count 8.68 10^3/uL (3.29-11.43)
[2024-07-25 05:04] LABS: Anion Gap 14.9 (5-19); Blood Urea Nitrogen 14 mg/dL (8-23); Calcium 8.6 mg/dL (8.5-10.5); Carbon Dioxide 26 mmol/L (22-29); Chloride 105 mmol/L (98-107); Glucose 98 mg/dL (65-115); Osmolality Calculated 294 mOsm/kg (285-295); Potassium 3.9 mmol/L (3.5-5.1); Sodium 142 mmol/L (136-145)
[2024-07-25] MEDS: pantoprazole DR 40 mg Tablet PO (06:02)
--- NOTE | 2024-07-25 08:22 | PM.PN ---
Subjective Subjective: The patient underwent a cardiac catheterization followed by by PCI of the the right coronary artery. The patient continues to have chest tightness and shortness of breath. The EKG does not show any new changes. The vital signs are stable. He was evaluated by Dr. Talley. It was decided to continue the isosorbide mononitrate and watch the clinical response. Medications: Medication Review Details: Current Medications Acetaminophen (Acetaminophen 325 Mg Tablet) 650 mg PO Q6H PRN PRN Reason: MILD PAIN Hydrocodone Bitart/Acetaminophen (Hydrocodone-Acetaminophen 5-325 Mg Tablet) 1 tab PO Q4H PRN PRN Reason: MODERATE TO SEVERE PAIN Al Hydrox/Mg Hydrox/Simethicone (Zqdg-Ewm-Tgeewwtgb-Jovanni 30 Ml Udc) 30 ml PO Q15M PRN PRN Reason: INDIGESTION Aspirin (Aspirin 81 Mg Ec Tablet) 81 mg PO DAILY [facility] Last Admin: 07/24/24 07:21 Dose: 81 mg Atropine Sulfate (Atropine 1 Mg/Ml Sdv 1 Ml) 0.5 mg IVP PRN PRN PRN Reason: Symptomatic bradycardia Clopidogrel Bisulfate (Clopidogrel 75 Mg Tablet) 75 mg PO DAILY [facility] Last Admin: 07/24/24 09:04 Dose: Not Given Ezetimibe (Ezetimibe 10 Mg Tablet) 10 mg PO DAILY [facility] Last Admin: 07/24/24 08:55 Dose: 10 mg Fentanyl (Fentanyl 50 Mcg/Ml Inj 2ml) 50 mcg IVP PRN PRN PRN Reason: Prior to sheath removal Isosorbide Mononitrate (Isosorbide Mononitrate Er 30 Mg Tablet) 30 mg PO DAILY [facility] Lisinopril (Lisinopril 5 Mg Tablet) 5 mg PO BEDTIME [facility] Last Admin: 07/24/24 20:04 Dose: 5 mg Magnesium Hydroxide (Magnesium Hydroxide 30 Ml Udc) 30 ml PO DAILY PRN PRN Reason: CONSTIPATION Naloxone HCl (Naloxone 0.4 Mg/Ml Sdv) 0.1 mg IVP Q2M PRN PRN Reason: RESPIRATORY RATE < 8/MIN Nitroglycerin (Nitroglycerin 0.4 Mg Sublingual Tablet) 0.4 mg SUBLINGUAL Q5M PRN PRN Reason: CHEST PAIN Last Admin: 07/24/24 15:40 Dose: 0.4 mg Ondansetron HCl (Ondansetron 2 Mg/Ml Sdv 2 Ml) 4 mg IVP Q8H PRN PRN Reason: vomiting, or N/V if npo Pantoprazole Sodium (Pantoprazole Dr 40 Mg Tablet) 40 mg PO QAM [facility] Last Admin: 07/25/24 06:02 Dose: 40 mg Temazepam (Temazepam 15 Mg Capsule) 15 mg PO BEDTIME PRN PRN Reason: INSOMNIA Vitals/I&O/Wt Last Vital Signs Temp 98.0 F 07/25/24 07:20 Pulse 95 07/25/24 07:20 Resp 22 H 07/25/24 07:20 BP 131/79 07/25/24 07:20 Pulse Ox 95 07/25/24 07:20 O2 Del Method Room Air 07/25/24 07:20 07/24/24 07/25/24 07/25/24 22:59 06:59 14:59 Intake Total 760 / 2433.15 100 / 2533.15 Output Total 1750 / 1750 350 / 2100 Balance -990 / 683.15 -250 / 433.15 Weight last 48 hrs Weight 169 lb 8 oz Weight 168 lb 1.6 oz Weight 169 lb Weight 171 lb Physical Exam Narrative: GENERAL: The patient is alert and oriented times three. Not in any acute distress. HEENT: No significant pallor, icterus or lymphadenopathy.Oral cavity: There are no mucous membrane lesions. NECK: Trachea appears to be central. No masses noted. No JVD or thyromegaly appreciated. RESPIRATORY: Chest is symmetrical. No intercostals muscle retraction or any accessory muscle activation. There is no chest wall tenderness. Breath sounds are heard bilaterally. No rales or rhonchi heard. No evidence of any consolidation. BREASTS: Deferred. HEART: The heart sounds are normal. No S3 or S4. No significant murmurs. No pericardial rub ABDOMEN: No vessel pulsations or distention. No tenderness. No organomegaly appreciated. Bowel sounds are normally heard. : Deferred. RECTAL: Deferred. LYMPHATIC: No lymphadenopathy noted in the neck. EXTREMITIES: No hematoma bleeding at the arterial puncture site MUSCULOSKELETAL: No acute joint deformities or swelling SKIN: There are no significant rashes or ecchymosis NEUROPSYCHIATRIC: The patient is alert and oriented x3. Appears to be in a good mood. No tremors or rigidity noted. Data 07/25/24 04:25 07/25/24 04:25 Other Labs: Laboratory Last Values WBC 8.68 10^3/uL (3.29-11.43) 07/25/24 04:25 RBC 4.53 10^6/uL (3.85-5.65) 07/25/24 04:25 Hgb 13.90 g/dL (11.27-16.99) 07/25/24 04:25 Hct 41.7 % (37-53) 07/25/24 04:25 MCV 92.1 fl (82-101) 07/25/24 04:25 MCH 30.7 pg (27-33) 07/25/24 04:25 MCHC 33.3 g/dL (30-55) 07/25/24 04:25 RDW 12.8 % (12.1-15.1) 07/25/24 04:25 Plt Count 219 10^3/cmm (157-399) 07/25/24 04:25 MPV 9.2 fL (7.4-10.4) 07/25/24 04:25 Neut % (Auto) 76.4 % 07/25/24 04:25 Lymph % (Auto) 10.6 % 07/25/24 04:25 [place] % (Auto) 7.8 % 07/25/24 04:25 Eos % (Auto) 4.3 % 07/25/24 04:25 Baso % (Auto) 0.6 % 07/25/24 04:25 Neut # (Auto) 6.63 10^3/uL (1.8-7.7) 07/25/24 04:25 Lymph # (Auto) 0.9 10^3/uL (0.8-4.8) 07/25/24 04:25 [place] # (Auto) 0.7 10^3/uL (0.2-0.9) 07/25/24 04:25 Eos # (Auto) 0.4 10^3/uL (0.0-0.8) 07/25/24 04:25 Baso # (Auto) 0.1 10^3/uL (0.0-0.1) 07/25/24 04:25 Nucleated RBC % (auto) 0 % 07/25/24 04:25 Nucleated RBCs # 0.0 /100WBC 07/25/24 04:25 APTT 64.8 SECONDS (23.9-36.7) H D 07/24/24 06:44 Sodium 142 mmol/L (136-145) 07/25/24 04:25 Potassium 3.9 mmol/L (3.5-5.1) 07/25/24 04:25 Chloride 105 mmol/L (98-107) 07/25/24 04:25 Carbon Dioxide 26 mmol/L (22-29) 07/25/24 04:25 Anion Gap 14.9 (5-19) 07/25/24 04:25 BUN 14 mg/dL (8-23) 07/25/24 04:25 Creatinine 0.9 mg/dL (0.7-1.2) 07/25/24 04:25 GFR Calculation Not Reportable 07/25/24 04:25 Glucose 98 mg/dL (65-115) 07/25/24 04:25 Estimat Average Glucose 117 07/23/24 11:55 Hemoglobin A1c 5.7 % (4.0-6.0) 07/23/24 11:55 Calculated Osmolality 294 mOsm/kg (285-295) 07/25/24 04:25 Calcium 8.6 mg/dL (8.5-10.5) 07/25/24 04:25 Magnesium 2.2 mg/dL (1.7-2.3) 07/24/24 00:31 Total Bilirubin 0.3 mg/dL (0.15-1.2) 07/24/24 00:31 AST 15 U/L (0-40) 07/24/24 00:31 ALT 10 U/L (0-41) 07/24/24 00:31 Alkaline Phosphatase 70 U/L (40-130) 07/24/24 00:31 Troponin T Baseline 66 ng/L (0-15) H 07/23/24 11:55 Troponin T 120 Minute 73.08 ng/L (0-15) H 07/23/24 13:30 Delta Troponin T 7.08 ABS# (0-10) 07/23/24 13:30 Troponin T Hi Sens 6Hr 83.73 ng/L (0-15) H 07/23/24 17:25 Troponin T Hi Sens 6Hr Delta 17.73 ng/L (0-12) H* 07/23/24 17:25 NT-Pro-B Natriuret Pep 240 pg/mL (0-450) 07/23/24 11:55 Total Protein 6.7 g/dL (6.6-8.7) 07/24/24 00:31 Albumin 4.0 g/dL (3.5-5.2) 07/24/24 00:31 Globulin 2.7 g/dL (1.3-4.6) 07/24/24 00:31 Lipase 50 U/L (13-60) 07/23/24 11:55 Procalcitonin 0.05 ng/mL (0-0.5) 07/23/24 11:55 Urine Opiates Screen Negative ng/mL (Negative) 07/23/24 15:50 Ur Barbiturates Screen Negative ng/mL (Negative) 07/23/24 15:50 Ur Phencyclidine Scrn Negative ng/mL (Negative) 07/23/24 15:50 Ur Amphetamines Screen Negative ng/mL (Negative) 07/23/24 15:50 U Benzodiazepines Scrn Negative ng/mL (Negative) 07/23/24 15:50 Urine Cocaine Screen Negative ng/mL (Negative) 07/23/24 15:50 U Marijuana (THC) Screen Positive ng/mL (Negative) H 07/23/24 15:50 A&P Assessment and plan (1) Atherosclerotic heart disease of [place] coronary artery with unstable angina pectoris: Patient status post cardiac colorization, revealing subtotal occlusion of the proximal RCA, in-stent. Status post PCI. Continues to have chest tightness/shortness of breath. No new EKG changes. Possible coronary spasm. Being treated with nitrates. Will be watching the clinical response closely. If the patient continues to have chest pain, may need to take him back to the [facility] for a repeat angiogram. This was discussed with the patient. Qualifiers: [place] vs. transplanted heart: [place] heart Qualified Code(s): I25.110 - Atherosclerotic heart disease of [place] coronary artery with unstable angina pectoris (2) Elevated troponin: From [id number] myocardial infarction. Will continue the Plavix and aspirin along with the other medications. (3) Hypercholesteremia: Patient apparently has a history of? Intolerance to simvastatin. Will start him on Zetia 10 mg p.o. daily. Need to consider Repatha, if he is already tried the other statins (4) Benign essential hypertension with target blood pressure below 140/90: Currently normotensive. Continue on the current medications. (5) Marijuana abuse, continuous: Strongly advised to quit. Cardiovascular medications were discussed. (6) Sinus node dysfunction: Patient did not have any recurrence of sinus pauses on the monitor since the coronary intervention Plan Discussed with the patient about the possibilities. The possibility of stent thrombosis/coronary spasm are considerations. If there is no improvement of the chest pain with the time-released nitroglycerin, we may consider taking back to the cardiac catheterization lab for a repeat coronary angiogram. Dr. Talley will be reevaluating this patient later today and make the decision PDMP PDMP Reviewed: Not Reviewed Attestations Medical Necessity Statement*: Patient requires continued hospital stay for close monitoring and further management Coding Level of Care Code 67599 Diagnoses Atherosclerosis of [place] coronary artery of [place] heart with unstable angina pectoris I25.110 [place] vs. transplanted heart: [place] heart Elevated troponin R79.89 Hypercholesteremia E78.00 Benign essential hypertension with target blood pressure below 140/90 I10 Marijuana abuse, continuous F12.10 Sinus node dysfunction I49.5
[2024-07-25] MEDS: clopidogrel 75 mg Tablet PO (08:39)
[2024-07-25] MEDS: aspirin 81 mg EC Tablet PO (08:39)
[2024-07-25] MEDS: ezetimibe 10 mg Tablet PO (08:40)
[2024-07-25] MEDS: isosorbide mononitrate ER 30 mg Tablet PO (08:40)
--- NOTE | 2024-07-25 09:28 | ECG_ITS ---
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 Measurements Intervals [place] Rate: 89 P: 44 GA: 149 QRS: 66 QRSD: 94 T: 46 QT: 344 QTc: 420 Interpretive Statements SINUS RHYTHM NONSPECIFIC T-WAVE ABNORMALITY Compared to ECG 07/24/2024 15:42:18 No significant changes Electronically Signed On 07-26-2024 21:51:48 CDT by Clyde Gardner M.D. [email or web address] [id number]
--- NOTE | 2024-07-25 10:05 | P.PN_ITS ---
<Statement entered by Ortiz Talley MD - 08/03/24 20:21> Patient was evaluated and cared for in conjunction with an advanced practice practitioner. I personally examined the patient and reviewed the chart and all pertinent data including imaging, telemetry, and laboratory results. I discussed the patient in detail with the advanced practice practitioner. Please see their note for complete H&P testing result and agreed upon plan of care for the patient. Subjective 2 Subjective: Patient states he does not have any chest pressure anymore although he states he feels uncomfortable in his left chest. He states it is hard to describe his symptoms. Isosorbide has been started. Vitals/I&O/Wt Last Vital Signs Temp 98.0 F 07/25/24 07:20 Pulse 95 07/25/24 07:20 Resp 22 H 07/25/24 07:20 BP 131/79 07/25/24 07:20 Pulse Ox 95 07/25/24 07:20 O2 Del Method Room Air 07/25/24 07:20 07/24/24 07/25/24 07/25/24 22:59 06:59 14:59 Intake Total 760 / 2433.15 100 / 2533.15 480 / 480 Output Total 1750 / 1750 350 / 2100 Balance -990 / 683.15 -250 / 433.15 480 / 480 Weight last 48 hrs Weight 169 lb 8 oz Weight 168 lb 1.6 oz Weight 169 lb Weight 171 lb Physical Exam 2 Narrative: General: No apparent distress, healthy appearing, well nourished Muskuloskeletal: Full ROM Lymphatic: no lymphedema noted Respiratory: Normal respiratory effort, slightly congested lower lobes but overall clear throughout all lung scott, no use of accessory muscles Cardio: No JVD, regular rate, regular rhythm, S1 S2 normal, no murmurs Extremities: Full ROM, normal, normal capillary refill, no cyanosis Neuro: Alert and oriented x4, no focal motor deficits Psych: Affect normal, denies suicidal ideation, mental status grossly normal Skin: right radial cath site clean w/o evidence of bleeding Data 07/25/24 04:07/25/24 04:25 A&P Assessment and plan (1) Atherosclerotic heart disease of [place] coronary artery with unstable angina pectoris: Qualifiers: [place] vs. transplanted heart: [place] heart Qualified Code(s): I25.110 - Atherosclerotic heart disease of [place] coronary artery with unstable angina pectoris (2) Elevated troponin: (3) Hypercholesteremia: (4) Benign essential hypertension with target blood pressure below 140/90: (5) Marijuana abuse, continuous: (6) Sinus node dysfunction: Plan Dr. Gardner has seen the patient this morning. His chest pressure is gone but he still having some discomfort in the left side of his chest. Isosorbide has been started. Will continue to monitor and evaluate his response to this. PDMP PDMP Reviewed: Not Reviewed Attestations 2 Medical Necessity Statement*: Defer to primary Coding Level of Care Code Acute Code for [facility] Fwd Diagnoses Atherosclerosis of [place] coronary artery of [place] heart with unstable angina pectoris I25.110 [place] vs. transplanted heart: [place] heart Elevated troponin R79.89 Hypercholesteremia E78.00 Benign essential hypertension with target blood pressure below 140/90 I10 Marijuana abuse, continuous F12.10 Sinus node dysfunction I49.5
--- NOTE | 2024-07-25 10:47 | PC.NURSE ---
Patient ambulated in hallway about 200 feet total. His vitals were stable. No complaint of shortness of breath or chest pressure.
--- NOTE | 2024-07-25 11:30 | PM.PN ---
Subjective Subjective: patient started to complain of chest pressure last evening, still has some chest discomfort this morning. Imdur was added today per cardiology recommendation following which patient states that his pressure is relieved. Medications: Medication Review Details: Current Medications Acetaminophen (Acetaminophen 325 Mg Tablet) 650 mg PO Q6H PRN PRN Reason: MILD PAIN Hydrocodone Bitart/Acetaminophen (Hydrocodone-Acetaminophen 5-325 Mg Tablet) 1 tab PO Q4H PRN PRN Reason: MODERATE TO SEVERE PAIN Al Hydrox/Mg Hydrox/Simethicone (Itcp-Fud-Ilopmbtua-Jovanni 30 Ml Udc) 30 ml PO Q15M PRN PRN Reason: INDIGESTION Aspirin (Aspirin 81 Mg Ec Tablet) 81 mg PO DAILY [facility] Last Admin: 07/24/24 07:21 Dose: 81 mg Atropine Sulfate (Atropine 1 Mg/Ml Sdv 1 Ml) 0.5 mg IVP PRN PRN PRN Reason: Symptomatic bradycardia Clopidogrel Bisulfate (Clopidogrel 75 Mg Tablet) 75 mg PO DAILY [facility] Last Admin: 07/24/24 09:04 Dose: Not Given Ezetimibe (Ezetimibe 10 Mg Tablet) 10 mg PO DAILY [facility] Last Admin: 07/24/24 08:55 Dose: 10 mg Fentanyl (Fentanyl 50 Mcg/Ml Inj 2ml) 50 mcg IVP PRN PRN PRN Reason: Prior to sheath removal Isosorbide Mononitrate (Isosorbide Mononitrate Er 30 Mg Tablet) 30 mg PO DAILY [facility] Lisinopril (Lisinopril 5 Mg Tablet) 5 mg PO BEDTIME [facility] Last Admin: 07/24/24 20:04 Dose: 5 mg Magnesium Hydroxide (Magnesium Hydroxide 30 Ml Udc) 30 ml PO DAILY PRN PRN Reason: CONSTIPATION Naloxone HCl (Naloxone 0.4 Mg/Ml Sdv) 0.1 mg IVP Q2M PRN PRN Reason: RESPIRATORY RATE < 8/MIN Nitroglycerin (Nitroglycerin 0.4 Mg Sublingual Tablet) 0.4 mg SUBLINGUAL Q5M PRN PRN Reason: CHEST PAIN Last Admin: 07/24/24 15:40 Dose: 0.4 mg Ondansetron HCl (Ondansetron 2 Mg/Ml Sdv 2 Ml) 4 mg IVP Q8H PRN PRN Reason: vomiting, or N/V if npo Pantoprazole Sodium (Pantoprazole Dr 40 Mg Tablet) 40 mg PO QAM [facility] Last Admin: 07/25/24 06:02 Dose: 40 mg Temazepam (Temazepam 15 Mg Capsule) 15 mg PO BEDTIME PRN PRN Reason: INSOMNIA Vitals/I&O/Wt Last Vital Signs Temp 98.0 F 07/25/24 07:20 Pulse 119 H 07/25/24 14:00 Resp 13 07/25/24 11:28 BP 104/72 07/25/24 11:28 Pulse Ox 95 07/25/24 11:28 O2 Del Method Room Air 07/25/24 11:28 07/25/24 07/25/24 07/25/24 06:59 14:59 22:59 Intake Total 100 / 2533.15 960 / 960 Output Total 350 / 2100 Balance -250 / 433.15 960 / 960 Weight last 48 hrs Weight 76.884 kg Weight 76.249 kg Physical Exam Narrative: General: No acute distress, AO x3 HEENT: PERRLA, pupils bilaterally equal and reactive, pallors not present Chest: Normal vesicular breath sounds, no added sounds, equal good air entry bilaterally CVS: S1-S2 regular, no murmurs, no tachycardia, no gallops, no rubs Abdomen: Soft, nontender, no organomegaly, bowel sounds present Neuro: No focal deficits, no facial deformity, AO x3, power 5/5 in all limbs Data 07/25/24 04:25 07/25/24 04:25 A&P Assessment and plan (1) Chest pain: Qualifiers: Chest pain type: other chest pain Qualified Code(s): R07.89 - Other chest pain (2) Benign essential hypertension with target blood pressure below 140/90: (3) Coronary artery disease: (4) Elevated troponin: (5) Stable angina: (6) Atherosclerotic heart disease of [place] coronary artery with other forms of angina pectoris: Plan #Chest pain, most likely consistent with stable angina. #Chronic heart failure, systolic versus diastolic unspecified. #Hypertension #CAD status post PCI in the past. #Hyperlipidemia ? Continue aspirin Plavix atorvastatin ? Await 2-hour 6-hour troponin at this time - Serial EKGs ? Check echo to rule out wall motion abnormalities ? Continue lisinopril, metoprolol tartrate, Protonix ? Hold Lasix and potassium at this time. Patient appears to be euvolemic ? If chest pain recurs will consider Nitropaste. ? Depending upon troponins may consider anticoagulation however at this time we will plan for stress testing in AM. ? N.p.o. at midnight. ? Will consult cardiology. Await further recommendations. ? Continue to monitor on telemetry. Patient may require event monitor at discharge to rule out underlying heart block. Patient did have a 3 to 4-second sinus pause on telemetry. Full code DVT prophylaxis: Heparin SQ twice daily July 24, 2024 Patient's status post angiogram this morning with placement of stent into the proximal RCA. Denies any active complaints at this time. No chest pain. Will monitor patient in the next 24 hours. If remains stable may be able to be discharged tomorrow morning. July 25, 2024 Patient developed some chest pressure last evening and has continued to have intermittent chest pressure this morning. Ekg showing sinus tachycardia. Resume metoprolol, thought at a lower dose of 12.5 mg po daily since previously was noted to have sinus pauses. Imdur was added this morning and patient states that his chest pressure was relieved currently. Suspect that his chest pressure may be related to coronary spasm. Monitor patient closely today. If chest pain becomes recurrent, may need repeat angiogram. PDMP PDMP Reviewed: Not Reviewed Attestations Medical Necessity Statement*: Add Imdur, closely monitor for any recurrent chest pain Coding Level of Care Code Acute Code for [facility] Fwd Diagnoses Other chest pain R07.89 Chest pain type: other chest pain Benign essential hypertension with target blood pressure below 140/90 I10 Coronary artery disease I25.10 Elevated troponin R79.89 Stable angina I20.89 Atherosclerotic heart disease of [place] coronary artery with other forms of angina pectoris I25.118
--- NOTE | 2024-07-25 15:34 | ECG_ITS ---
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 Measurements Intervals [place] Rate: 110 P: -7 MD: 140 QRS: -3 QRSD: 88 T: 1 QT: 311 QTc: 422 Interpretive Statements SINUS TACHYCARDIA INFERIOR MYOCARDIAL INFARCTION , PROBABLY OLD [40+ ms Q WAVE AND/OR ST/T ABNORMALITY IN II/aVF] nonspecific T wave changes INTERPRETATION BASED ON A DEFAULT AGE OF 40 YEARS Compared to ECG 07/25/2024 09:42:34 Myocardial infarct finding now present Sinus rhythm no longer present T-wave abnormality no longer present Electronically Signed On 07-26-2024 21:32:49 CDT by Clyde Gardner M.D. [email or web address] [id number]
--- NOTE | 2024-07-25 15:58 | XRR_ITS ---
PROCEDURE INFORMATION: Exam: XR Chest Exam date and time: 07/25/2024 4:28 PM Age: 78 years old Clinical indication: Pain; Angina pectoris; Additional info: Chest pain TECHNIQUE: Imaging protocol: Radiologic exam of the chest. Views: 1 view. COMPARISON: CR (CHEST, ) 07/23/2024 11:59 AM FINDINGS: Lungs: Unremarkable. No consolidation or mass. Pleural spaces: Unremarkable. No pleural effusion. No pneumothorax. Heart/Mediastinum: Unremarkable. No cardiomegaly. Bones/joints: Unremarkable. XR/XR chest 1V portable [id number] IMPRESSION: No acute findings.
--- NOTE | 2024-07-25 15:59 | PC.NURSE ---
Patient told nursing staff that he was having chest pressure at 1540. An EKG is done. JEFFREY Seay and Dr. Talley are notified and Geena followed up to bedside. No new orders at this time.
[2024-07-25] MEDS: nitroglycerin 0.4 mg sublingual Tablet SUBLINGUAL (16:16)
--- NOTE | 2024-07-25 16:20 | PC.NURSE ---
Dr Hebert is updated on the patients chest pressure and going to laboratory monitor this afternoon.
--- NOTE | 2024-07-25 16:33 | P.PN_ITS ---
<Statement entered by Ortiz Talley MD - 08/03/24 20:20> Patient was evaluated and cared for in conjunction with an advanced practice practitioner. I personally examined the patient and reviewed the chart and all pertinent data including imaging, telemetry, and laboratory results. I discussed the patient in detail with the advanced practice practitioner. Please see their note for complete H&P testing result and agreed upon plan of care for the patient. Subjective 2 Subjective: Patient was seen at bedside due to a start up chest pressure at the center of his chest on exertion not relieved with rest. EKG was performed that did not show any ST elevation or acute T wave abnormalities. This was reviewed with Dr. Talley. He denies any shortness of breath. Nitro was given. X-ray ordered. Vitals/I&O/Wt Last Vital Signs Temp 98.0 F 07/25/24 07:20 Pulse 108 H 07/25/24 16:00 Resp 18 07/25/24 16:00 BP 113/68 07/25/24 16:00 Pulse Ox 95 07/25/24 16:00 O2 Del Method Room Air 07/25/24 16:00 07/25/24 07/25/24 07/25/24 06:59 14:59 22:59 Intake Total 100 / 2533.15 960 / 960 Output Total 350 / 2100 Balance -250 / 433.15 960 / 960 Weight last 48 hrs Weight 169 lb 8 oz Weight 168 lb 1.6 oz Physical Exam 2 Narrative: General: No apparent distress, healthy appearing, well nourished Muskuloskeletal: Full ROM Lymphatic: no lymphedema noted Respiratory: Normal respiratory effort, slightly congested lower lobes but overall clear throughout all lung scott, no use of accessory muscles Cardio: No JVD, regular rate, regular rhythm, S1 S2 normal, no murmurs Extremities: Full ROM, normal, normal capillary refill, no cyanosis Neuro: Alert and oriented x4, no focal motor deficits Psych: Affect normal, denies suicidal ideation, mental status grossly normal Skin: right radial cath site clean w/o evidence of bleeding Data 07/25/24 04:25 07/25/24 04:25 A&P Assessment and plan (1) Atherosclerotic heart disease of [place] coronary artery with unstable angina pectoris: Qualifiers: [place] vs. transplanted heart: [place] heart Qualified Code(s): I25.110 - Atherosclerotic heart disease of [place] coronary artery with unstable angina pectoris (2) Elevated troponin: (3) Hypercholesteremia: (4) Benign essential hypertension with target blood pressure below 140/90: (5) Marijuana abuse, continuous: (6) Sinus node dysfunction: Plan Due to him still having chest pressure, Dr. Talley recommend proceeding with urgent angiogram. Make patient NPO now. Nitro given. Monitor for worsening symptoms. At this time, they are not severe. He will perform procedure this afternoon. The risk and benefits were discussed in detail with the patient and his . The risks incluiding but not limited to bleeding, hematoma, vascular injury, myocardial infarction, myocardial perforation, malignant cardiac arrhythmias ,CVA, renal failure and other concomitant complications were explained in detail and he agrees to proceed. PDMP PDMP Reviewed: Not Reviewed Attestations 2 Medical Necessity Statement*: Deferred to primary. Coding Level of Care Code Acute Code for Chg Fwd Diagnoses Atherosclerosis of [place] coronary artery of [place] heart with unstable angina pectoris I25.110 [place] vs. transplanted heart: [place] heart Elevated troponin R79.89 Hypercholesteremia E78.00 Benign essential hypertension with target blood pressure below 140/90 I10 Marijuana abuse, continuous F12.10 Sinus node dysfunction I49.5
--- NOTE | 2024-07-25 17:17 | XACV_ITS ---
Exam Room: 2 Ht: 168 cm Wt: 76 kg BSA: 1.90 m2 Gender: Male : 1945 Any Known Allergies: Penicillins Exam Priority: Routine Procedure(s): Procedure Description: Diagnostic procedure Procedure Description: Coronary Angiography Gerri OSBORN; Diagnostic Cath Status: Urgent Diagnostic Findings * Left Main has no disease. * Left Anterior Descending has no disease. * Circumflex has no disease. * Proximal Right Coronary Artery to Mid Right Coronary Artery: luminal irregularities 20% stenosis, LIZETH: 3 flow. * 1st Diagonal: minimal 30% stenosis, LIZETH: 3 flow. * Coronary angiography shows right dominance. Conclusions 1. There is luminal irregularities coronary artery disease with one vessel disease. Recommendations * Continue current medical management and risk factor modification. Diagnostic RX Recommendation: medical therapy and/or counseling Clinical Evaluation EBL: 5mL-10mL Procedural Details Procedure Consent Obtained. Current Diagnosis : NSTEMI. Hemodynamic formulas in [place] were re-calculated based on hemoglobin value from 07/25/2024 12:00:00 AM. Pre-Procedure Time Out. Identified patient by full name and date of as verbalized by the patient/guarantor. Does the consent match the physician's order: Yes. Accurate & Complete Informed Consent: Yes. Inpatient/Outpatient History & Physical on Chart: Yes. If H&P is completed, is and addenduem needed: No. Visualize and Verify Site with Patient/Guarantor: N/A. Relevant Radiology Images available: Yes. The risks, benefits, and alternatives of sedation and/or procedure were discussed by physician. The patient agrees to continue. Procedure started. [facility] Clinical Fraility Score: 3: Managing Well. 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 Chest Pain Symptom Assessment: Typical Angina Symptoms. Cardiovascular Instability: No. Correct patient, site and procedure confirmed by cath team. PERRLA. Strong, equal hand ship's captain bilaterally. Lungs clear x 5 lobes. IV Site on Arrival: 18 gauge in the left forearm. IV Fluids: 0.9% NaCl at KVO. 200 mL infused prior to cook house laborer. Pre Procedural Pulses: right radial was 3+. Oxygen started at 2liters/min via nasal canula. right groin was prepped with chloroprep then draped in the usual sterile fashion. right radial was prepped with chloroprep then draped in the usual sterile fashion. Physician notified. Patient's family in the cook house laborer waiting room. Dr. Talley will update at the completion of the procedure. Equipment: 6F - Radial. Cardiac Cath Pack. ACIST Manifold Kit Model BT 2000. Heparinized Saline (2 units/mL), 1000 mL bag. Physician arrived. Physician scrubbed in. Immediate Pre-Procedure Time Out. Correct Patient: Yes; Correct Procedure: Yes; Correct Site: Yes; Correct Patient Position: Yes; Correct Supplies: Yes; Dried Flammable Prep: Yes; Blood Products Available: N/A;. Lidocaine 1% infiltrated to the right radial. Arterial access obtained. Unable to thread wire, needle and wire out. Dr. Talley holding manual pressure. Arterial access obtained. Unable to thread wire, needle and wire out. Dr. Talley holding manual pressure. Arterial access obtained. Unable to thread wire, needle and wire out. Dr. Talley holding manual pressure. Will abort radial access and move to right femoral access. TR band placed. Hemostasis obtained. Lidocaine 1% infiltrated to the right groin. Arterial access obtained with micropuncture set. A Right femoral angiogram was performed to determine safe placement of closure device. A 5 syrian JL4 catheter in over the standard J wire. Multiple views taken of left coronary artery. Catheter redirected to the RCA. Multiple views taken of right coronary artery. Catheter removed over the standard J wire. Lidocaine 1% infiltrated to the right groin. A Angio-Seal VIP ([facility] [facility]) was successful obtaining hemostatsis at the Right Femoral artery insertion site. Lot # [id number]. Exp. . Post Procedure: Pulses reassessed and unchanged. PERRLA. Strong, equal hand ship's captain bilaterally. No VTE prophylaxis required. Medication's Wasted: Lidocaine 1% = 12 mL. Medication's Wasted: Nitro = 49.95 mg. Medication's Wasted: Heparin = 1000 units. Medication's Wasted: Other = Fentanyl 50 mcg. Total IV fluids: 270 mL. Post-op diagnosis: Non-obstructive CAD, Patent RCA stent. Complications: none. Estimated blood loss: 5mL-10mL. Responsiveness - Normal response to verbal stimuli; alert and oriented, PERRLA. Airway - Unaffected, no intervention required; spontaneous ventilation. Circulation: W/N/L, pulses unchanged. Nausea/Vomiting: No. Procedure completed. Patient transferred by bed to 1st floor. Vital chart was stopped. Access Site Site: Right Femoral artery Sheath Size: 6 Fr Hemostasis Method: Angio-Seal VIP ([facility]) Hemostasis Success: Successful Procedure Medications Start: 6:22 PM Stop: 6:22 PM Medication: Versed Amount: 1 mg Route: I.V. Start: 6:22 PM Stop: 6:22 PM Medication: Fentanyl Amount: 50 mcg Route: I.V. Start: 6:28 PM Stop: 6:28 PM Medication: 0.9% Saline Amount: 250 ml Route: I.V. bolus Start: 6:30 PM Stop: 6:30 PM Medication: Nitrogylcerin Amount: 50 mcg Route: S.Q. Start: 6:36 PM Stop: 6:36 PM Medication: Versed Amount: 1 mg Route: I.V. I, the attending physician, have reviewed and verified all procedure medications. Yes, all medications given per verbal order History/Risk Factors Hypertension: Yes Dyslipidemia: Yes Peripheral Arterial Disease (PAD): No Myocardial Infarction ([place]): Yes Obesity: No Renal Disease: No Tobacco Use: Former Prior Interventions PCI: Yes CABG: No Valve Surgery: No Date of PCI: 03/08/2016 Report Signatures Finalized by Ortiz Talley MD on 08/06/2024 06:54 PM
[2024-07-25] MEDS: metoprolol tartrate 25 mg Tablet 12.5 MG PO (17:26)
[2024-07-25] MEDS: diphenhydrAMINE 50 mg Capsule PO (17:26)
--- NOTE | 2024-07-25 18:11 | PC.NURSE ---
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
--- NOTE | 2024-07-25 18:16 | W.PM.OPSUD ---
Surgery/Procedure H&P Update DATE OF PROCEDURE: July 25, 2024 DATE H&P PERFORMED: 07/23/24 H&P UPDATE INFORMATION: I have reviewed H&P completed within last 30 days and I have examined patient prior to procedure PREOP DIAGNOSIS: Recurrent chest pain status post PCI PRIMARY INDICATION FOR PROCEDURE: 78-year-old male who underwent left heart catheterization yesterday for non-ST elevation LA noted to have severe in-stent restenosis of the right coronary artery. Patient was treated with drug-eluting stent however post procedure patient continues to have off-and-on chest pressure initially we tried nitroglycerin, controlling blood pressure morphine since he continues to have chest pressure and define it exactly the same when he came we decided to bring him back and have a look at the stent. It is the reason we will bring him back today. PLANNED PROCEDURE: Operation Date: 07/24/24 07:00 Proposed Procedures p Cardiac Catheterization(Not Applicable) - Clyde Gardner MD PATIENT REASSESSED PRIOR TO SEDATION, WITH NO CHANGE NOTED: Yes PHYSICAL EXAM: alert, oriented x 3, clear to auscultation bilaterally, regular rate & rhythm and operative site marked AIRWAY EVAL/ANESTHESIA PLAN: ASA II, Risks, benefits & alternatives of sedation and/or procedure discussed and Patient agrees to continue as planned ADDITIONAL INFORMATION: Patient has been explained all risk-benefit and alternative for the procedure patient understand risk for major minor bleed 2% risk of stroke, 5 to 6% risk for minor bleeding oozing infection hematoma pseudoaneurysm contrast induced nephropathy arrhythmia urgent or emergent vascular bypass surgery. He would like to proceed with it.
--- NOTE | 2024-07-25 19:07 | PM.PROC ---
Procedure Note: Date of procedure: 07/25/24 Pre-procedure diagnosis: Chest pain Post-procedure diagnosis: same Procedure: Are the left heart cath was performed send patient continues of chest pain goal Left main: No significant coronary disease LAD: Luminal irregularity without significant stenosis LCx: Luminal dilated without significant stenosis with obtuse marginal 30 to 40% stenosis RCA: Patent previously placed proximal to mid RCA stents without thrombus, no significant stenosis of mid to distal RCA. Plan: Limited echo to rule out pericardial effusion Extracardiac causes for chest pain may need to be aspirated out Bedrest for 3 hours Continue aspirin statin beta-ahi and clopidogrel Complications: None Coding Level of Care Code Acute Code for Chg Fwd
[2024-07-25] MEDS: sodium chloride 0.9% 1,000 ML 100 ML IV (19:10)
--- NOTE | 2024-07-25 19:17 | PC.NURSE ---
Patient returned to CSU from labor conciliator with a right radial TR-Band and right groining angioseal at 1910.
--- NOTE | 2024-07-25 20:29 | PC.NURSE ---
2ml of air released from TR band, no hematoma development. Patient does endorse tingling in fingertips.
--- NOTE | 2024-07-25 23:22 | PC.NURSE ---
Patient has been laying flat for four hours post cath with angioseal. Site is free of hematoma and soft. Patient complaints for soreness and stiff legs but no other complaints. TR band is deflated no signs of hematoma. Patient requesting to lay on side.
[2024-07-25] MEDS: HYDROcodone-acetaminophen 5-325 mg Tablet 1 TAB PO (23:49)
[2024-07-26] VITALS (11 sets, daily range): BP systolic 105–130; BP diastolic 61–76; PULSE 44–89; RESP 11–20; TEMP 36.4–36.9; O2SAT 93–98
[2024-07-26] MEDS: pantoprazole DR 40 mg Tablet PO (05:27)
[2024-07-26 05:58] LABS: Basophils % 0.5 %; Eosinophils # 0.3 10^3/uL (0.0-0.8); Hematocrit 39.2 % (37-53); Lymphocytes # 1.2 10^3/uL (0.8-4.8); Lymphocytes % 15.3 %; Mean Corpuscular HGB Conc 32.7 g/dL (30-55); Mean Corpuscular Hemoglobin 30.4 pg (27-33); Mean Corpuscular Volume 93.1 fl (82-101); Mean Platelet Volume 9.6 fL (7.4-10.4); Monocytes # 0.7 10^3/uL (0.2-0.9); Monocytes % 8.8 %; Nucleated Red Blood Cells % 0 %; Platelet Count 211 10^3/cmm (157-399); Red Blood Count 4.21 10^6/uL (3.85-5.65); Red Cell Distribution Width 12.7 % (12.1-15.1); White Blood Count 8.03 10^3/uL (3.29-11.43)
[2024-07-26 06:05] LABS: Alanine Aminotransferase 8 U/L (0-41); Albumin Level 3.6 g/dL (3.5-5.2); Alkaline Phosphatase 57 U/L (40-130); Anion Gap 13.9 (5-19); Aspartate Amino Transferase 11 U/L (0-40); Blood Urea Nitrogen 12 mg/dL (8-23); Calcium 8.4 mg/dL (8.5-10.5); Carbon Dioxide 26 mmol/L (22-29); Chloride 106 mmol/L (98-107); Creatinine Clr Calc Pharmacy 67.0631; Globulin 2.3 g/dL (1.3-4.6); Glucose 89 mg/dL (65-115); Osmolality Calculated 293 mOsm/kg (285-295); Potassium 3.9 mmol/L (3.5-5.1); Sodium 142 mmol/L (136-145); Total Bilirubin 0.7 mg/dL (0.15-1.2); Total Protein 5.9 g/dL (6.6-8.7)
--- NOTE | 2024-07-26 08:03 | USCV_ITS ---
Greg Joseph Age: 78 Gender: M : 1945 Exam Date: 07/26/2024 09:24 Ordering Phys: Geena Thompson NP Technologist: Exam Location[place] [facility] [place] Indication: ? per eff BP: 130 / 75 HR: Rhythm: Sinus Technical Quality: Adequate MEASUREMENTS (Male / Female) Normal Values 2D ECHO LV Ejection Fraction MOD 4C 72.4 % LV Ejection Fraction MOD 2C 76.6 % LV Ejection Fraction 2C AL 76.8 % FINDINGS Left Ventricle Normal LV size ejection fraction of 72%. No gross wall motion abnormalities. Right Ventricle Normal right ventricular size and systolic function. Right Atrium Possibly of normal size Left Atrium Normal left atrial size. Mitral Valve No gross abnormalities Aortic Valve No gross abnormalities Tricuspid Valve No gross abnormalities Pulmonic Valve Pulmonic valve not well visualized. Pericardium No pericardial effusion. Aorta Normal aortic annulus size. IVC Inferior vena cava not visualized. CONCLUSIONS Normal LV size ejection fraction of 72%. No gross wall motion abnormalities. No pericardial effusion. Possibly normal cardiac chamber sizes. There are no intracardiac masses. Dr Clyde Gardner MD FACC (Electronically Signed) Final Date: 26 July 2024 12:30 S
[2024-07-26] MEDS: levalbuterol 0.63 mg/3 mL Neb INHALATION ×2 (08:39→13:57)
[2024-07-26] MEDS: isosorbide mononitrate ER 30 mg Tablet PO (09:22)
[2024-07-26] MEDS: clopidogrel 75 mg Tablet PO (09:22)
[2024-07-26] MEDS: aspirin 81 mg EC Tablet PO (09:23)
[2024-07-26] MEDS: ezetimibe 10 mg Tablet PO (09:23)
--- NOTE | 2024-07-26 11:12 | PC.NURSE ---
Spoke with [facility] geophysical support specialist tahir aretaga [facility] the clinic will contact patient to schedule this f/u.
--- NOTE | 2024-07-26 12:21 | P.DS_ITS ---
Discharge Providers Date of Admission: 07/23/24 12:36 Date of Discharge: July 26, 2024 Attending Provider at Admission: Kristel Alvarenga MD Attending Provider at Discharge: Loren Hebert MD Diagnoses at Discharge Discharge Diagnosis (1) Atherosclerotic heart disease of [place] coronary artery with unstable angina pectoris: Status: Acute Qualifiers: [place] vs. transplanted heart: [place] heart Qualified Code(s): I25.110 - Atherosclerotic heart disease of [place] coronary artery with unstable angina pectoris (2) Elevated troponin: Status: Acute (3) Hypercholesteremia: Status: Acute (4) Benign essential hypertension with target blood pressure below 140/90: Status: Acute (5) Marijuana abuse, continuous: Status: Acute (6) Sinus node dysfunction: Status: Acute Reason for Visit Reason for Visit: CP Hospital Course Hospital Course 78 year old male known to have atherosclerotic heart disease, high blood pressure and dyslipidemia was admitted to hospital on 07/23 with complaints of chest pain since last Wednesday. He was found to have elevated troponin T. Patient was also found to have sinus pauses of more than 3 seconds on the monitor. On 07/24 he underwent coronary angiogram with stent placement into the proximal RCA. He continued to complain of some chest pressure post procedure which persisted until 07/25 in spite of addition of Imdur. He underwent another angiogram on 07/25/2024 to evaluate for any stent occlusion. The stents were found to be patent. Limited echo was ordered today to rule out any pericardial effusion and study was negative for the same. Patient was in sinus rhythm. Patient is chest pain-free today. He states that his pain resolved overnight. He has attempted ambulation in the room without any recurrence of symptoms. Chest x-ray did not show any pneumonia atelectasis or other abnormalities. he is being discharged in stable condition. Imdur was added to his medication regimen as his intermittent chest pain postprocedure was thought to be related to coronary vasospasm. With the addition of Imdur his systolic blood pressure has ranged between 96-1 10. Lisinopril was therefore discontinued to allow room on the blood pressure to tolerate Imdur. This may need to be reassessed at his cardiology outpatient f/up visit in 1 week. Physical Exam Narrative: General: No acute distress, AO x3 HEENT: PERRLA, pupils bilaterally equal and reactive, pallors not present Chest: Normal vesicular breath sounds, no added sounds, equal good air entry bilaterally CVS: S1-S2 regular, no murmurs, no tachycardia, no gallops, no rubs Abdomen: Soft, nontender, no organomegaly, bowel sounds present Neuro: No focal deficits, no facial deformity, AO x3, power 5/5 in all limbs Discharge Data Studies Completed and Pending Completed Studies During Hospitalization Category Date Time Status RUG FRAME MOUNTER request for service Routine Exams 07/24/24 15:30 Completed XR chest 1V portable [id number] Stat Exams 07/23/24 11:48 Completed XR chest 1V portable [id number] Stat Exams 07/25/24 15:58 Completed CV. echo complete* [id number] Stat Ultrasound 07/23/24 12:36 Completed Pending at discharge Category Date Time Status RUG FRAME MOUNTER request for service Routine Exams 07/25/24 17:17 Taken Sestamibi Stress Test Request Routine Exams 07/23/24 16:25 Stop Req CV. echo limited [id number] Routine Ultrasound 07/26/24 08:03 Taken Radiology Impressions Chest X-Ray 07/25/24 15:58 IMPRESSION: No acute findings. Laboratory Results WBC 8.03 10^3/uL (3.29-11.43) 07/26/24 04:49 RBC 4.21 10^6/uL (3.85-5.65) 07/26/24 04:49 Hgb 12.80 g/dL (11.27-16.99) 07/26/24 04:49 Hct 39.2 % (37-53) 07/26/24 04:49 MCV 93.1 fl (82-101) 07/26/24 04:49 MCH 30.4 pg (27-33) 07/26/24 04:49 MCHC 32.7 g/dL (30-55) 07/26/24 04:49 RDW 12.7 % (12.1-15.1) 07/26/24 04:49 Plt Count 211 10^3/cmm (157-399) 07/26/24 04:49 MPV 9.6 fL (7.4-10.4) 07/26/24 04:49 Neut % (Auto) 71.0 % 07/26/24 04:49 Lymph % (Auto) 15.3 % 07/26/24 04:49 Cass % (Auto) 8.8 % 07/26/24 04:49 Eos % (Auto) 4.0 % 07/26/24 04:49 Baso % (Auto) 0.5 % 07/26/24 04:49 Neut # (Auto) 5.70 10^3/uL (1.8-7.7) 07/26/24 04:49 Lymph # (Auto) 1.2 10^3/uL (0.8-4.8) 07/26/24 04:49 Cass # (Auto) 0.7 10^3/uL (0.2-0.9) 07/26/24 04:49 Eos # (Auto) 0.3 10^3/uL (0.0-0.8) 07/26/24 04:49 Baso # (Auto) 0.0 10^3/uL (0.0-0.1) 07/26/24 04:49 Nucleated RBC % (auto) 0 % 07/26/24 04:49 Nucleated RBCs # 0.0 /100WBC 07/26/24 04:49 APTT 64.8 SECONDS (23.9-36.7) H D 07/24/24 06:44 Sodium 142 mmol/L (136-145) 07/26/24 04:49 Potassium 3.9 mmol/L (3.5-5.1) 07/26/24 04:49 Chloride 106 mmol/L (98-107) 07/26/24 04:49 Carbon Dioxide 26 mmol/L (22-29) 07/26/24 04:49 Anion Gap 13.9 (5-19) 07/26/24 04:49 BUN 12 mg/dL (8-23) 07/26/24 04:49 Creatinine 0.9 mg/dL (0.7-1.2) 07/26/24 04:49 GFR Calculation Not Reportable 07/26/24 04:49 Glucose 89 mg/dL (65-115) 07/26/24 04:49 Estimat Average Glucose 117 07/23/24 11:55 Hemoglobin A1c 5.7 % (4.0-6.0) 07/23/24 11:55 Calculated Osmolality 293 mOsm/kg (285-295) 07/26/24 04:49 Calcium 8.4 mg/dL (8.5-10.5) L 07/26/24 04:49 Magnesium 2.2 mg/dL (1.7-2.3) 07/24/24 00:31 Total Bilirubin 0.7 mg/dL (0.15-1.2) 07/26/24 04:49 AST 11 U/L (0-40) 07/26/24 04:49 ALT 8 U/L (0-41) 07/26/24 04:49 Alkaline Phosphatase 57 U/L (40-130) 07/26/24 04:49 Troponin T Baseline 66 ng/L (0-15) H 07/23/24 11:55 Troponin T 120 Minute 73.08 ng/L (0-15) H 07/23/24 13:30 Delta Troponin T 7.08 ABS# (0-10) 07/23/24 13:30 Troponin T Hi Sens 6Hr 83.73 ng/L (0-15) H 07/23/24 17:25 Troponin T Hi Sens 6Hr Delta 17.73 ng/L (0-12) H* 07/23/24 17:25 NT-Pro-B Natriuret Pep 240 pg/mL (0-450) 07/23/24 11:55 Total Protein 5.9 g/dL (6.6-8.7) L 07/26/24 04:49 Albumin 3.6 g/dL (3.5-5.2) 07/26/24 04:49 Globulin 2.3 g/dL (1.3-4.6) 07/26/24 04:49 Lipase 50 U/L (13-60) 07/23/24 11:55 Procalcitonin 0.05 ng/mL (0-0.5) 07/23/24 11:55 Urine Opiates Screen Negative ng/mL (Negative) 07/23/24 15:50 Ur Barbiturates Screen Negative ng/mL (Negative) 07/23/24 15:50 Ur Phencyclidine Scrn Negative ng/mL (Negative) 07/23/24 15:50 Ur Amphetamines Screen Negative ng/mL (Negative) 07/23/24 15:50 U Benzodiazepines Scrn Negative ng/mL (Negative) 07/23/24 15:50 Urine Cocaine Screen Negative ng/mL (Negative) 07/23/24 15:50 U Marijuana (THC) Screen Positive ng/mL (Negative) H 07/23/24 15:50 Vitals Last Vital Signs Temp 97.9 F 07/26/24 11:17 Pulse 89 07/26/24 11:17 Resp 20 H 07/26/24 11:17 BP 113/76 07/26/24 11:17 Pulse Ox 97 07/26/24 11:17 O2 Del Method Room Air 07/26/24 08:00 Discharge Plan Discharge Patient Disposition: Home Condition: Stable Prescriptions: New aspirin 81 mg Tablet,Delayed Release (Dr/Ec) 81 mg PO DAILY 30 Days Qty: 30 0RF ezetimibe 10 mg Tablet 10 mg PO DAILY 30 Days Qty: 30 0RF isosorbide mononitrate 30 mg Tablet Extended Release 24 Hr 30 mg PO DAILY 30 Days Qty: 30 0RF Continued cholecalciferol (vitamin D3) 25 mcg (1,000 unit) capsule 25 mcg PO BEDTIME pantoprazole 40 mg tablet,delayed release (DR/EC) 40 mg PO QAM potassium chloride 20 mEq tablet extended release 20 meq PO QAM biotin 5,000 mcg Tablet,Disintegrating 5,000 mcg PO BEDTIME clopidogrel [Plavix] 75 mg tablet 75 mg PO QAM 30 Days Qty: 30 0RF Changed furosemide [Lasix] 40 mg tablet 40 mg PO QAM PRN (Reason: weight gain or edema) 30 Days Qty: 30 0RF metoprolol tartrate 50 mg Tablet 12.5 mg PO QAM 30 Days Qty: 30 0RF Discontinued lisinopril 5 mg tablet 5 mg PO BEDTIME Discharge Orders: Discharge Order (Routine); Ordered 07/26/24 Ordered By: Loren Hebert Referrals: Tawanna Pepper FNP [Nurse Practitioner] - 08/07/24 8:[address] [facility] [Occupational Therapist] - (Spoke with [facility] will contact amelia to schedule this appointment. Thank you! ) Discharge Diet: Cardiac Discharge Activity: Resume usual activity Patient Instructions: Coronary Angioplasty (DC), Opioid Safety, Post Angiogram Home Care Instructions, Pain Management Discharge Attestations Time Spent in Discharge Care*: greater than 30 min Quality Metrics Clinical Quality Measures [ Acute Myocardial Infaction { Clinical Trial Participant: No; Contraindication to aspirin: None; Aspirin prescribed; Contraindication to statin: None; Statin prescribed; Contraindication to PCI: None; PCI performed;}] Coding Level of Care Code Acute Code for Chg Fwd Diagnoses Atherosclerosis of [place] coronary artery of [place] heart with unstable angina pectoris I25.110 [place] vs. transplanted heart: [place] heart Elevated troponin R79.89 Hypercholesteremia E78.00 Benign essential hypertension with target blood pressure below 140/90 I10 Marijuana abuse, continuous F12.10 Sinus node dysfunction I49.5
--- NOTE | 2024-07-26 13:43 | PC.SOCIAL ---
IMM updated IMM dated and initialed, copy placed in chart and copy given to patient
--- NOTE | 2024-07-26 22:00 | P.PN_ITS ---
Subjective 2 Subjective: Patient has no recurrence of chest pain since last night. His vital signs remained stable. He underwent a repeat cardiac irradiation last night. He was found to have patent stented segments of the right coronary artery. Vitals/I&O/Wt Last Vital Signs Temp 97.9 F 07/26/24 11:17 Pulse 72 07/26/24 16:45 Resp 18 07/26/24 16:45 BP 113/76 07/26/24 16:45 Pulse Ox 98 07/26/24 16:45 O2 Del Method Room Air 07/26/24 13:59 07/26/24 07/26/24 07/26/24 06:59 14:59 22:59 Intake Total 583.333 / 2023.333 960 / 960 Output Total 350 / 975 Balance 233.333 / 1048.333 960 / 960 Weight last 48 hrs Weight 169 lb 3.2 oz Weight 169 lb 8 oz Physical Exam 2 Narrative: GENERAL: The patient is alert and oriented times three. Not in any acute distress. HEENT: No significant pallor, icterus or lymphadenopathy.Oral cavity: There are no mucous membrane lesions. NECK: Trachea appears to be central. No masses noted. No JVD or thyromegaly appreciated. RESPIRATORY: Chest is symmetrical. No intercostals muscle retraction or any accessory muscle activation. There is no chest wall tenderness. Breath sounds are heard bilaterally. No rales or rhonchi heard. No evidence of any consolidation. BREASTS: Deferred. HEART: The heart sounds are normal. No S3 or S4. No significant murmurs. No pericardial rub ABDOMEN: No vessel pulsations or distention. No tenderness. No organomegaly appreciated. Bowel sounds are normally heard. : Deferred. RECTAL: Deferred. LYMPHATIC: No lymphadenopathy noted in the neck. EXTREMITIES: No hematoma bleeding at the arterial puncture site MUSCULOSKELETAL: No acute joint deformities or swelling SKIN: There are no significant rashes or ecchymosis NEUROPSYCHIATRIC: The patient is alert and oriented x3. Appears to be in a good mood. No tremors or rigidity noted. Data 07/26/24 04:49 07/26/24 04:49 Other Labs: Laboratory Last Values WBC 8.03 10^3/uL (3.29-11.43) 07/26/24 04:49 RBC 4.21 10^6/uL (3.85-5.65) 07/26/24 04:49 Hgb 12.80 g/dL (11.27-16.99) 07/26/24 04:49 Hct 39.2 % (37-53) 07/26/24 04:49 MCV 93.1 fl (82-101) 07/26/24 04:49 MCH 30.4 pg (27-33) 07/26/24 04:49 MCHC 32.7 g/dL (30-55) 07/26/24 04:49 RDW 12.7 % (12.1-15.1) 07/26/24 04:49 Plt Count 211 10^3/cmm (157-399) 07/26/24 04:49 MPV 9.6 fL (7.4-10.4) 07/26/24 04:49 Neut % (Auto) 71.0 % 07/26/24 04:49 Lymph % (Auto) 15.3 % 07/26/24 04:49 [place] % (Auto) 8.8 % 07/26/24 04:49 Eos % (Auto) 4.0 % 07/26/24 04:49 Baso % (Auto) 0.5 % 07/26/24 04:49 Neut # (Auto) 5.70 10^3/uL (1.8-7.7) 07/26/24 04:49 Lymph # (Auto) 1.2 10^3/uL (0.8-4.8) 07/26/24 04:49 [place] # (Auto) 0.7 10^3/uL (0.2-0.9) 07/26/24 04:49 Eos # (Auto) 0.3 10^3/uL (0.0-0.8) 07/26/24 04:49 Baso # (Auto) 0.0 10^3/uL (0.0-0.1) 07/26/24 04:49 Nucleated RBC % (auto) 0 % 07/26/24 04:49 Nucleated RBCs # 0.0 /100WBC 07/26/24 04:49 APTT 64.8 SECONDS (23.9-36.7) H D 07/24/24 06:44 Sodium 142 mmol/L (136-145) 07/26/24 04:49 Potassium 3.9 mmol/L (3.5-5.1) 07/26/24 04:49 Chloride 106 mmol/L (98-107) 07/26/24 04:49 Carbon Dioxide 26 mmol/L (22-29) 07/26/24 04:49 Anion Gap 13.9 (5-19) 07/26/24 04:49 BUN 12 mg/dL (8-23) 07/26/24 04:49 Creatinine 0.9 mg/dL (0.7-1.2) 07/26/24 04:49 GFR Calculation Not Reportable 07/26/24 04:49 Glucose 89 mg/dL (65-115) 07/26/24 04:49 Estimat Average Glucose 117 07/23/24 11:55 Hemoglobin A1c 5.7 % (4.0-6.0) 07/23/24 11:55 Calculated Osmolality 293 mOsm/kg (285-295) 07/26/24 04:49 Calcium 8.4 mg/dL (8.5-10.5) L 07/26/24 04:49 Magnesium 2.2 mg/dL (1.7-2.3) 07/24/24 00:31 Total Bilirubin 0.7 mg/dL (0.15-1.2) 07/26/24 04:49 AST 11 U/L (0-40) 07/26/24 04:49 ALT 8 U/L (0-41) 07/26/24 04:49 Alkaline Phosphatase 57 U/L (40-130) 07/26/24 04:49 Troponin T Baseline 66 ng/L (0-15) H 07/23/24 11:55 Troponin T 120 Minute 73.08 ng/L (0-15) H 07/23/24 13:30 Delta Troponin T 7.08 ABS# (0-10) 07/23/24 13:30 Troponin T Hi Sens 6Hr 83.73 ng/L (0-15) H 07/23/24 17:25 Troponin T Hi Sens 6Hr Delta 17.73 ng/L (0-12) H* 07/23/24 17:25 NT-Pro-B Natriuret Pep 240 pg/mL (0-450) 07/23/24 11:55 Total Protein 5.9 g/dL (6.6-8.7) L 07/26/24 04:49 Albumin 3.6 g/dL (3.5-5.2) 07/26/24 04:49 Globulin 2.3 g/dL (1.3-4.6) 07/26/24 04:49 Lipase 50 U/L (13-60) 07/23/24 11:55 Procalcitonin 0.05 ng/mL (0-0.5) 07/23/24 11:55 Urine Opiates Screen Negative ng/mL (Negative) 07/23/24 15:50 Ur Barbiturates Screen Negative ng/mL (Negative) 07/23/24 15:50 Ur Phencyclidine Scrn Negative ng/mL (Negative) 07/23/24 15:50 Ur Amphetamines Screen Negative ng/mL (Negative) 07/23/24 15:50 U Benzodiazepines Scrn Negative ng/mL (Negative) 07/23/24 15:50 Urine Cocaine Screen Negative ng/mL (Negative) 07/23/24 15:50 U Marijuana (THC) Screen Positive ng/mL (Negative) H 07/23/24 15:50 A&P Assessment and plan (1) Atherosclerotic heart disease of [place] coronary artery with unstable angina pectoris: Patient status post cardiac catheterization , revealing subtotal occlusion of the proximal RCA, in-stent. Status post PCI. Continues to have chest tightness/shortness of breath. No new EKG changes. Possible coronary spasm. Being treated with nitrates. Will be watching the clinical response closely. If the patient continues to have chest pain, may need to take him back to the [facility] for a repeat angiogram. This was discussed with the patient. The patient was taken back to the [facility] and had a repeat cardiac catheterization. He was found to have patent stented segment. No new lesions were noted. Qualifiers: [place] vs. transplanted heart: [place] heart Qualified Code(s): I25.110 - Atherosclerotic heart disease of [place] coronary artery with unstable angina pectoris (2) Elevated troponin: From [id number] myocardial infarction. Will continue the Plavix and aspirin along with the other medications. (3) Hypercholesteremia: Continue the severe for the time being. Consider Repatha as an outpatient (4) Benign essential hypertension with target blood pressure below 140/90: Currently normotensive. Continue on the current medications. (5) Marijuana abuse, continuous: Strongly advised to quit. Cardiovascular medications were discussed. (6) Sinus node dysfunction: This seems to be related to the ischemia in the RCA distribution. No severe bradycardia since the PCI. Will continue the low-dose of beta-hai Plan Discussed with Dr. Hebert. Since the patient remained stable with no recurrence of chest pain, it may be appropriate to discharge him home today he may be kept on the other current medications. [facility]ointment the [facility] in 1 week with the nurse practitioner. Appoint with me in the office in 1 month. Will consider Repatha at the outpatient visit PDMP PDMP Reviewed: Not Reviewed Attestations 2 Medical Necessity Statement*: possible discharge home today Coding Level of Care Code 65535 Diagnoses Atherosclerosis of [place] coronary artery of [place] heart with unstable angina pectoris I25.110 [place] vs. transplanted heart: [place] heart Elevated troponin R79.89 Hypercholesteremia E78.00 Benign essential hypertension with target blood pressure below 140/90 I10 Marijuana abuse, continuous F12.10 Sinus node dysfunction I49.5
== END 2024-07-26 16:47 | disposition home or self-care (01) | DRG 321 ==
LOC: ER 12:50 → CSU 13:33
PROVIDERS: Emergency Medicine; Internal Medicine; Internal Medicine Cardiovascular Disease; Admitting Provider Internal Medicine; Emergency Provider Emergency Medicine; Visit Provider Student in an Organized Health Care Education/Training Program
DX: T82.855A Stenosis of coronary artery stent, initial encounter (principal); I21.4 Non-ST elevation (NSTEMI) myocardial infarction; I25.110 Atherosclerotic heart disease of native coronary artery with unstable angina pectoris; I50.32 Chronic diastolic (congestive) heart failure; Y71.1 Therapeutic (nonsurgical) and rehabilitative cardiovascular devices associated with adverse incidents; F12.90 Cannabis use, unspecified, uncomplicated; F43.10 Post-traumatic stress disorder, unspecified; E78.00 Pure hypercholesterolemia, unspecified; M19.90 Unspecified osteoarthritis, unspecified site; K21.9 Gastro-esophageal reflux disease without esophagitis; R07.89 Other chest pain; I49.5 Sick sinus syndrome; Z91.198 Patient's noncompliance with other medical treatment and regimen for other reason; Z95.5 Presence of coronary angioplasty implant and graft; Z79.899 Other long term (current) drug therapy; Z79.02 Long term (current) use of antithrombotics/antiplatelets; Z88.0 Allergy status to penicillin; Z88.8 Allergy status to other drugs, medicaments and biological substances; Z88.5 Allergy status to narcotic agent; Z87.891 Personal history of nicotine dependence; I25.2 Old myocardial infarction; I11.0 Hypertensive heart disease with heart failure
CPT/HCPCS: 36415; 71045; 80048; 80053; 80306; 83036; 83690; 83735; 83880; 84145; 84484; 85025; 85347; 85730; 93005; 93306; 93308; 93454; 93458; 94640; 96372; 96374; 96376; 99152; 99153; C1725; C1760; C1769; C1874; C1887; C1894; C9600; G0269; J1644; J1938; J2250; J2270; J3010; J3490; J7030; J7614; J9999; Q0163; Q9967

== ENCOUNTER → 2024-08-03 15:23 | Outpatient (BNVA) | payer OTHER, SELFPAY | PROVIDERS: PCP Family Medicine; Visit Provider Nurse Practitioner Family | DX: Z48.812 Encounter for surgical aftercare following surgery on the circulatory system (principal); I25.118 Atherosclerotic heart disease of native coronary artery with other forms of angina pectoris; I10 Essential (primary) hypertension; E78.5 Hyperlipidemia, unspecified; Z79.01 Long term (current) use of anticoagulants; Z79.82 Long term (current) use of aspirin; Z95.5 Presence of coronary angioplasty implant and graft; Z87.891 Personal history of nicotine dependence | CPT/HCPCS: 99214 ==

== ENCOUNTER → 2024-09-26 14:51 | Outpatient (BNVA) | payer OTHER, SELFPAY | PROVIDERS: PCP Family Medicine; Visit Provider Internal Medicine Cardiovascular Disease | DX: I25.118 Atherosclerotic heart disease of native coronary artery with other forms of angina pectoris (principal); E78.00 Pure hypercholesterolemia, unspecified; I10 Essential (primary) hypertension | CPT/HCPCS: 99214 ==

== ENCOUNTER → 2024-10-26 09:20 | Outpatient (BNVA) | payer OTHER, SELFPAY | PROVIDERS: PCP Family Medicine; Visit Provider Nurse Practitioner Family | DX: I25.10 Atherosclerotic heart disease of native coronary artery without angina pectoris (principal); E78.00 Pure hypercholesterolemia, unspecified; I10 Essential (primary) hypertension; Z79.02 Long term (current) use of antithrombotics/antiplatelets; Z79.82 Long term (current) use of aspirin; F12.90 Cannabis use, unspecified, uncomplicated; Z95.5 Presence of coronary angioplasty implant and graft | CPT/HCPCS: 99213 ==

== ENCOUNTER → 2025-04-10 09:23 | Outpatient (BNVA) | payer OTHER, SELFPAY | PROVIDERS: PCP Family Medicine; Visit Provider Nurse Practitioner Family | DX: I25.10 Atherosclerotic heart disease of native coronary artery without angina pectoris (principal); I10 Essential (primary) hypertension; Z87.891 Personal history of nicotine dependence; R51.9 Headache, unspecified; R42 Dizziness and giddiness | CPT/HCPCS: 99214 ==